=== PATIENT | female | born 1940 | race Caucasian/White ===

== ENCOUNTER 2017-04-04 12:24 | Outpatient (CLI) | payer MEDICARE ==
[2017-04-04 13:02] LABS: Anion Gap 12 mmol/L (10-20); BUN (Urea Nitrogen) 13 mg/dL (9.8-20.1); Calc. Creatinine Clearance 0 mL/min (70-130); Calcium 9.3 mg/dL (7.8-10.44); Carbon Dioxide 27 mmol/L (23-31); Chloride 100 mmol/L (98-107); Estimated GFR-MDRD 62
--- NOTE | 2017-04-04 16:30 | NM ---
RADIONUCLIDE RENOGRAM WITH WASHOUT 04/04/17 HISTORY: UPJ congenital obstruction. FINDINGS: Patient was given 40 mg of Lasix IV 15 minutes prior to the start of the exam. Normalized GFR is kaden culated at 66 mL/minute. Split function shows 51% uptake of the left kidney and 49% of the right kid pankaj. Half life emptying of the right kidney is 17 minutes. Left kidney was reported at less than 1 minute , although this is favored to be artifactual. IMPRESSION: Symmetric renal function without evidence of obstruction. POS: [facility]
== END 2017-04-04 12:25 | disposition home or self-care (01) ==
LOC: NM 12:24 → SJX 12:25
PROVIDERS: ATTEND Urology
DX: R31.29 Other microscopic hematuria (principal); Q62.11 Congenital occlusion of ureteropelvic junction
CPT/HCPCS: 78708; 80048; A4641; A9562

== ENCOUNTER 2017-06-13 11:54 | Emergency (ER) | payer MEDICARE ==
[2017-06-13 12:31] LABS: #Lymphocytes 0.9 thou/uL (1.20-3.40); #Monocytes 0.8 thou/uL (0.11-0.59); #Neutrophils 10.5 thou/uL (1.40-6.50); %Basophils 0.2 % (0.0-1.0); %Eosinophils 0.2 % (0.0-10.0); %Lymphocytes 7.4 % (21.0-51.0); %Monocytes 6.5 % (0.0-10.0); Hematocrit 33.2 % (36.0-47.0); Mean Platelet Volume 9.7 fL (7.4-10.4); Red Blood Cell (RBC) Count 4.17 mill/uL (4.20-5.40); White Blood Cell (WBC) Count 12.3 thou/uL (4.8-10.8)
[2017-06-13] MEDS ORDERED: Nitroglycerin 2% Ointment 1 INCH/1 GM Packet ONE (12:41)
[2017-06-13 12:55] LABS: ALT (SGPT) 17 U/L (8-55); AST (SGOT) 20 U/L (5-34); Alkaline Phosphatase 65 U/L (40-150); Anion Gap 13 mmol/L (10-20); BUN (Urea Nitrogen) 15 mg/dL (9.8-20.1); Bilirubin, Total 0.5 mg/dL (0.2-1.2); CK (CPK) 52 U/L (29-168); Calc. Creatinine Clearance 0 mL/min (70-130); Calcium 9.2 mg/dL (7.8-10.44); Carbon Dioxide 26 mmol/L (23-31); Chloride 99 mmol/L (98-107); Estimated GFR-MDRD 64; Globulin 3.9 g/dL (2.4-3.5); Protein, Total 7.6 g/dL (6.0-8.3)
[2017-06-13 12:58] LABS: Troponin I Less than 0.010 ng/mL (< 0.028)
[2017-06-13 13:02] LABS: PTT 25.4 SEC (22.9-36.1); Prothrombin Time 13.9 SEC (12.0-14.7)
--- NOTE | 2017-06-13 13:03 | CT ---
NONCONTRAST CT OF THE BRAIN: Indication: 76-year-old female with dizziness. Comparison: 07-07-16 FINDINGS: There is moderate chronic small vessel white matter ischemic change which appears similar. No definit e acute infarct, hemorrhage, or hydrocephalus is present. The mastoid air cells are clear. The parana jessi sinuses demonstrate a small amount of mucosal thickening within the sphenoid sinus which is stabl e. Scattered intracranial vascular calcifications are similar. IMPRESSION: Stable moderate chronic small vessel and ischemic change. No definite acute intracranial abnormality. POS: [facility]
[2017-06-13 13:26] LABS: Bilirubin Negative (Negative); Blood, Urine Negative (Negative); Glucose, Urine (Dipstick) Negative (Negative); Ketone, Urine Negative (Negative); Nitrite Negative (Negative); Protein, Urine (Dipstick) Negative (Neg-Trace); Urobilinogen 0.2 mg/dL (0.2-1.0)
[2017-06-13 13:29] LABS: Bacteria/HPF None Seen HPF (None Seen); Hyaline Casts/LPF 4-6 HYALINE CAST LPF (0-3 Hyaline); RBC/HPF 0-3 HPF (0-3); Squamous Epithelial 0-3 HPF (0-3)
--- NOTE | 2017-06-13 13:40 | RAD ---
THREE VIEWS RIGHT WRIST: Indication: Right wrist pain. Comparison: None. FINDINGS: There is widening of the scapholunate interval suspicious for scapholunate insufficiency. There is mo derate radioscaphoid osteoarthrosis. There is mild osteoarthrosis seen between the lunate and the tri quetrum. There is stable nonspecific subchondral cyst like abnormality seen within the carpal bones. There is advanced STT and first CMC osteoarthrosis. There is slight DISI malalignment of the lunate. There is mild DRUJ osteoarthritis. There is soft tissue swelling surrounding the right wrist. IMPRESSION: 1. Findings suspicious for scapholunate insufficiency and DISI malalignment of the lunate. 2. Advanced STT and first CMC osteoarthrosis. 3. Moderate radiocarpal osteoarthrosis. 4. Mild DRUJ osteoarthrosis. POS: [facility]
--- NOTE | 2017-06-13 13:42 | RAD ---
AP CHEST: Indication: Chest pain, dizziness. FINDINGS: There is stable cardiomegaly. Vascular calcifications of the aortic arch is similar. No airspace cons olidation, pleural effusion is evident. Surgical clips over the left neck and left axillary region st able. IMPRESSION: Stable examination. No definite acute change demonstrated. POS: [facility]
[2017-06-13] MEDS ORDERED: HYDROcodone/Acetaminophen 10/325 mg Tablet ONE (16:46)
== END 2017-06-13 19:59 ==
LOC: ERS 11:54
DX: S63.501A Unspecified sprain of right wrist, initial encounter (principal); R54 Age-related physical debility; I48.91 Unspecified atrial fibrillation; E78.5 Hyperlipidemia, unspecified; I10 Essential (primary) hypertension; F41.9 Anxiety disorder, unspecified; Z87.891 Personal history of nicotine dependence; X58.XXXA Exposure to other specified factors, initial encounter
CPT/HCPCS: 29125; 36415; 70450; 71010; 80053; 81003; 81015; 82550; 82553; 84484; 85025; 85610; 85652; 85730; 86140; 87086; 93005; 94760

== ENCOUNTER 2017-07-31 08:32 | Outpatient (CLI) | payer MEDICARE | END 2017-07-31 08:33 | disposition home or self-care (01) | LOC: BICMRI 08:32 | PROVIDERS: ATTEND Psychiatry & Neurology Neurology | DX: R26.9 Unspecified abnormalities of gait and mobility (principal) | CPT/HCPCS: 70551 ==

== ENCOUNTER 2017-08-24 10:53 | Day surgery (SDC) | payer MEDICARE ==
[2017-08-23 10:47] VITALS: BMI 35.5
[2017-08-24] MEDS ORDERED: HYDROmorphone 0.5 MG/0.5 ML SYRINGE ONE (11:28)
[2017-08-24] MEDS ORDERED: Midazolam HCl 2 mg/2 ml Vial ONE (11:28)
--- NOTE | 2017-08-24 15:02 | MRI ---
MRI OF BRAIN WITH AND WITHOUT CONTRAST: Date: 08/24/17 COMPARISON: Head CT dated 06/13/17. CLINICAL HISTORY: Gait abnormality (unspecified abnormalities). History of dizziness. FINDINGS: Prominent ventricular system is again demonstrated with periventricular signal alteration. Punctate s usceptibility is seen within the right centrum semiovale. There is no acute territorial infarction, m ass effect, or midline shift. Skull base flow-voids are grossly patent. [place] intraocular lenses are absent. There is mild mucosal thickening of the paranasal sinuses. There is a tangle of enhancing va sculature adjacent to the right M1 segment. This suggests a developmental venous anomaly. There is no pathologic intra-axial enhancement identified. IMPRESSION: 1. Prominent ventricular system with periventricular signal alteration. This could be on the basis o f transependymal CSF migration. Note is made that size of ventricles does not correspond to degree of intracranial pressure. Correlate clinically. 2. Additional details described above. POS: [facility]
== END 2017-08-24 15:40 | disposition home or self-care (01) ==
LOC: SDC/OP 10:53
PROVIDERS: ATTEND Psychiatry & Neurology Neurology
DX: R26.9 Unspecified abnormalities of gait and mobility (principal); I12.9 Hypertensive chronic kidney disease with stage 1 through stage 4 chronic kidney disease, or unspecified chronic kidney disease; N18.2 Chronic kidney disease, stage 2 (mild); E78.5 Hyperlipidemia, unspecified; I73.9 Peripheral vascular disease, unspecified; I48.0 Paroxysmal atrial fibrillation
CPT/HCPCS: 70553; J1170; J2250

== ENCOUNTER 2017-09-08 12:15 | Emergency (ER) | payer MEDICARE ==
[2017-09-08 13:15] LABS: #Eosinphils 0.3 thou/uL (0.0-0.7); #Lymphocytes 1.6 thou/uL (1.20-3.40); #Monocytes 0.5 thou/uL (0.11-0.59); #Neutrophils 3.7 thou/uL (1.40-6.50); %Basophils 0.3 % (0.0-1.0); %Eosinophils 4.2 % (0.0-10.0); %Lymphocytes 25.8 % (21.0-51.0); %Monocytes 8.5 % (0.0-10.0); %Neutrophils 61.2 % (42.0-75.0); Hemoglobin 8.5 g/dL (12.0-16.0); Mean Corpuscular HGB CONC 29.9 g/dL (32.0-36.0); Mean Corpuscular Hemoglobin 21.7 pg (27.0-31.0); Mean Corpuscular Volume 72.7 fl (81.0-99.0); Platelet Count 329 thou/uL (130-400)
[2017-09-08 13:22] LABS: INR-International Normal Ratio 1.1; PTT 23.9 SEC (22.9-36.1); Prothrombin Time 14.5 SEC (12.0-14.7)
[2017-09-08 13:33] LABS: ALT (SGPT) 12 U/L (8-55); AST (SGOT) 16 U/L (5-34); Albumin 3.4 g/dL (3.4-4.8); Alkaline Phosphatase 68 U/L (40-150); Anion Gap 13 mmol/L (10-20); Anisocytosis SLIGHT = 6-15 cells (100X) (0-5/hpf); BUN (Urea Nitrogen) 11 mg/dL (9.8-20.1); Bilirubin, Total 0.2 mg/dL (0.2-1.2); CK (CPK) 44 U/L (29-168); Calc. Creatinine Clearance 0 mL/min (70-130); Calcium 8.7 mg/dL (7.8-10.44); Carbon Dioxide 26 mmol/L (23-31); Chloride 104 mmol/L (98-107); Elliptocytes SLIGHT = 2-5 cells (100X) (0-1/hpf); Estimated GFR-MDRD 57; Globulin 3.4 g/dL (2.4-3.5); Glucose 144 mg/dL (83-110); Hypochromia SLIGHT = 6-15 cells (100X) (0-5/hpf); Lipase 40 U/L (8-78); MDiff Complete? YES; Microcytosis SLIGHT = 6-15 cells (100X) (0-5/hpf); Ovalocytes SLIGHT = 2-5 cells (100X) (0-1/hpf); PLT Morphology Comment Appears Adequate; Polychromasia SLIGHT = 2-3 cells (100X) (0-2/hpf); Potassium 3.5 mmol/L (3.5-5.1); Protein, Total 6.8 g/dL (6.0-8.3); Sodium 139 mmol/L (136-145)
[2017-09-08 13:36] LABS: Troponin I Less than 0.010 ng/mL (< 0.028)
[2017-09-08 14:29] LABS: Bilirubin Negative (Negative); Blood, Urine Negative (Negative); Clarity CLEAR (Clear); Glucose, Urine (Dipstick) Negative (Negative); Leukocyte Negative (Negative); Nitrite Negative (Negative); Protein, Urine (Dipstick) Negative (Neg-Trace); Specific Gravity, Urine 1.012 (1.002-1.036)
--- NOTE | 2017-09-08 15:09 | RAD ---
PORTABLE CHEST: Date: 09/08/17 PROVIDED CLINICAL HISTORY: Dizziness. FINDINGS: Comparison with 06/13/17. Cardiac silhouette appears enlarged, which may be based partially on the basis of portable technique. Vascular calcification involves the aortic arch. Stable likely calcified granuloma right lung apex. No focal consolidation, pleural fluid, or pneumothorax apparent with suboptimal visualization of left lung base. IMPRESSION: Cardiomegaly without evidence for an acute cardiopulmonary process. If there is persistent clinical c oncern, follow-up PA and lateral views of the chest are recommended. POS: [facility]
--- NOTE | 2017-09-15 13:12 | EKG ---
Test Reason : DIZZINESS Blood Pressure : / mmHG Vent. Rate : 081 BPM Atrial Rate : 081 BPM P-R Int : 182 ms QRS Dur : 082 ms QT Int : 404 ms P-R-T Axes : 061 050 026 degrees QTc Int : 469 ms Normal sinus rhythm Nonspecific T wave abnormality Abnormal ECG Confirmed by JOCELIN SIN ([id number]), international editorial producer JOSUÉ CHAU ([id number]) on 09/15/2017 1:11:53 PM Referred By: Confirmed By:JOCELIN SIN
== END 2017-09-08 14:37 | disposition home or self-care (01) ==
LOC: ERS 12:15
DX: D64.9 Anemia, unspecified (principal); I48.91 Unspecified atrial fibrillation; E78.5 Hyperlipidemia, unspecified; I10 Essential (primary) hypertension; F41.9 Anxiety disorder, unspecified; Z87.891 Personal history of nicotine dependence; Z79.899 Other long term (current) drug therapy
CPT/HCPCS: 36415; 71045; 80053; 81003; 82553; 83690; 84443; 84484; 85025; 85610; 85730; 93005; 94760

== ENCOUNTER 2017-10-03 10:11 | Outpatient (CLI) | payer MEDICARE ==
[2017-10-03] MEDS ORDERED: Iopamidol 370 76% 100 ML VIAL ONE (14:57)
--- NOTE | 2017-10-03 15:52 | CT ---
CT ANGIOGRAM ABDOMEN AND PELVIS WITH IV CONTRAST AND 3D RECONSTRUCTIONS CT ANGIOGRAM BILATERAL LOWER EXTREMITIES WITH RUNOFF TO THE FEET WITH IV CONTRAST AND 3D RECONSTRUCTI ONS: DATE: 10/03/17. COMPARISON: CT angiogram abdomen and pelvis with bilateral lower extremity runoff on 07/28/[address] abdome n and pelvis on 01/09/17. FINDINGS: There are stable bilateral adrenal nodules as well as stable subcentimeter too small to characterize hypodense lesions in each kidney. The largest hypodense lesion in the superior pole left kidney kerwin ures 1.9 cm and demonstrates an fluid attenuation consistent with a cyst. The largest hypodense lesi on in the inferior pole right kidney measures 2.5 cm and also demonstrates fluid attenuation consiste nt with a cyst. There is linear scarring versus atelectasis at the left lung base. Lung bases are otherwise clear. Calcified granulomata are seen in the spleen. The liver, pancreas, and incompletely distended urinary bladder have a normal CT appearance. There i s evidence of prior hysterectomy. Colonic diverticulosis is again present. Postsurgical changes lumbar spine are again seen. Multilevel degenerative changes of the left arm al so involve the lumbar spine. Atherosclerotic vascular calcifications are again seen in the abdominal aorta and iliac arteries. Bi lateral common iliac artery stents are again seen. There is occlusion of the left common iliac arter y stent with dense calcifications in the left external iliac artery which also appears occluded and v brandan small in caliber. The right common iliac artery stent, which extends into the external iliac art brandan, does appear patent. There is moderate narrowing involving the mid portion of the right external iliac artery is otherwise patent. The right common femoral artery is patent. There is reconstitution of the left common femoral artery. The origins of the internal iliac arterie s are not well visualized. However, there is contrast seen within the internal iliac arteries bilate rally. Bilateral lower extremity runoff to the feet. RIGHT LOWER EXTREMITY: The right lower extremity common femoral, superficial femoral, and profunda femoral arteries are shaw nt with mild atherosclerotic calcifications and narrowing involving the distal right common femoral a rtery. The right popliteal artery is patent. There are atherosclerotic calcifications involving the proximal right anterior tibial artery, but there is 3-vesel runoff to the level of the ankle, but th e dorsalis pedis artery is not well opacified and I am unsure if this is related to occlusion at the level of the ankle or whether this is related to timing of the contrast bolus. However, the posterio r tibial artery is seen at the level of the foot. LEFT LOWER EXTREMITY: There is calcified atherosclerotic plaque seen in the left common femoral and superficial femoral art eries with mild degrees of narrowing present. The left profunda femoral artery does appear patent. The left popliteal artery is also patent. There is 3-vessel runoff to the level of the distal calf, but contrast distal to the level of the ankle within the tibioperoneal vessels is not well seen and, again, this may be related to timing of the contrast bolus, but atherosclerotic narrowing is not enti rely excluded. IMPRESSION: 1. The right common iliac and external iliac artery stents are patent, but there is a focal area of mild to moderate narrowing involving the right external iliac artery distally. 2. Occlusion of the left common iliac artery stent and the left external iliac artery is very small in caliber with dense vascular calcifications and is also occluded. There is reconstitution in the l eft common femoral artery. 3. There is 3-vessel runoff to the lower extremities to the level of the distal tibias bilaterally. The posterior tibial artery on the right is seen in the foot, but the remaining tibioperoneal vessel s bilaterally are not well seen in the foot, which could be related to timing of the contrast bolus. 4. Stable bilateral adrenal lesions. 5. Stable hypodense bilateral renal lesions with larger hypodense lesions demonstrating characterist ics consistent with cysts. 6. Colonic diverticulosis. 7. Hysterectomy. POS: [facility]
== END 2017-10-03 10:12 | disposition home or self-care (01) ==
LOC: CT 10:11
PROVIDERS: ATTEND Internal Medicine Cardiovascular Disease
DX: I73.9 Peripheral vascular disease, unspecified (principal); I70.201 Unspecified atherosclerosis of native arteries of extremities, right leg; I70.202 Unspecified atherosclerosis of native arteries of extremities, left leg; E27.9 Disorder of adrenal gland, unspecified; N28.9 Disorder of kidney and ureter, unspecified; K57.30 Diverticulosis of large intestine without perforation or abscess without bleeding; Z90.710 Acquired absence of both cervix and uterus
CPT/HCPCS: 75635; 82565

== ENCOUNTER 2017-11-06 18:15 | Inpatient (IN) | payer MEDICARE ==
[2017-11-06 19:10] LABS: #Eosinphils 0.1 thou/uL (0.0-0.7); #Lymphocytes 1.4 thou/uL (1.20-3.40); #Monocytes 0.7 thou/uL (0.11-0.59); #Neutrophils 4.9 thou/uL (1.40-6.50); %Basophils 0.4 % (0.0-1.0); %Eosinophils 1.6 % (0.0-10.0); %Lymphocytes 19.7 % (21.0-51.0); %Monocytes 9.4 % (0.0-10.0); Hemoglobin 5.6 g/dL (12.0-16.0); Mean Corpuscular HGB CONC 29.1 g/dL (32.0-36.0); Mean Corpuscular Hemoglobin 19.1 pg (27.0-31.0); Mean Corpuscular Volume 65.7 fl (81.0-99.0); Mean Platelet Volume 9.4 fL (7.4-10.4); Platelet Count 419 thou/uL (130-400); RBC Distribution Width 19.3 % (11.5-14.5); Red Blood Cell (RBC) Count 2.93 mill/uL (4.20-5.40)
[2017-11-06 19:17] LABS: ALT (SGPT) 13 U/L (8-55); AST (SGOT) 22 U/L (5-34); Albumin 3.6 g/dL (3.4-4.8); Alkaline Phosphatase 61 U/L (40-150); Anion Gap 17 mmol/L (10-20); BUN (Urea Nitrogen) 14 mg/dL (9.8-20.1); Bilirubin, Total 0.3 mg/dL (0.2-1.2); Calc. Creatinine Clearance 0 mL/min (70-130); Calcium 8.8 mg/dL (7.8-10.44); Carbon Dioxide 21 mmol/L (23-31); Chloride 102 mmol/L (98-107); Estimated GFR-MDRD 57; Globulin 3.2 g/dL (2.4-3.5); Glucose 95 mg/dL (83-110); Potassium 4.1 mmol/L (3.5-5.1); Protein, Total 6.8 g/dL (6.0-8.3); Sodium 136 mmol/L (136-145)
[2017-11-06 19:30] LABS: Anisocytosis MODERATE=16-30 cells (100X) (0-5/hpf); Elliptocytes SLIGHT = 2-5 cells (100X) (0-1/hpf); Hypochromia MODERATE=16-30 cells (100X) (0-5/hpf); MDiff Complete? YES; Microcytosis SLIGHT = 6-15 cells (100X) (0-5/hpf); Ovalocytes SLIGHT = 2-5 cells (100X) (0-1/hpf); PLT Morphology Comment Appears Increased; Polychromasia MODERATE = 3-4 cells (100X) (0-2/hpf); Reflex for Review?? YES; Target Cells SLIGHT = 2-5 cells (100X) (0-1/hpf)
--- NOTE | 2017-11-06 19:48 | RAD ---
PORTABLE CHEST: 11/06/17 HISTORY: Shortness of breath. COMPARISON: 09/08/17 Study. The heart size appears slightly enlarged. There are atherosclerotic changes of the aorta. There are c hronic appearing lung changes seen. Slight obscuration to the left heart border is similar to the pratibha or examination. Surgical clips are seen in the left axilla. IMPRESSION: Stable chest. POS: [facility]
[2017-11-06 20:11] LABS: CKMB 0.8 ng/mL (0-6.6); Troponin I Less than 0.010 ng/mL (< 0.028)
[2017-11-06 21:00] LABS: Bilirubin Negative (Negative); Blood, Urine Negative (Negative); Clarity CLEAR (Clear); Glucose, Urine (Dipstick) Negative (Negative); Leukocyte Negative (Negative); Nitrite Negative (Negative); Protein, Urine (Dipstick) Negative (Neg-Trace); Specific Gravity, Urine 1.006 (1.002-1.036); Urobilinogen 0.2 mg/dL (0.2-1.0)
[2017-11-06 21:08] VITALS: BMI 35.6
[2017-11-06] MEDS ORDERED: Ondansetron HCl/PF 4 MG/2 ML Vial IVP PRN (21:27)
[2017-11-06] MEDS ORDERED: Acetaminophen 325 MG TAB PO PRN (21:27)
[2017-11-06] MEDS ORDERED: Ondansetron ODT 4 MG TAB SL PRN (21:27)
[2017-11-06 23:53] LABS: Iron 21 ug/dL (50-170); Iron Binding Capacity, Total 543 mcg/dL (265-497); Reticulocyte Count 3.9 % (0.5-1.5)
[2017-11-07 06:14] LABS: Reticulocyte Count 3.5 % (0.5-1.5)
[2017-11-07] MEDS ORDERED: Nitroglycerin 0.4 MG TAB (25 Tab Bottle) PO PRN (06:30)
[2017-11-07] MEDS ORDERED: Acetaminophen 325 MG TAB PO PRN (06:30)
[2017-11-07] MEDS ORDERED: Calcium Carbonate 500 MG ChewTAB PO PRN (06:30)
[2017-11-07] MEDS ORDERED: Mag-Al 1200 mg/1200 mg/30 ML UDCUP PO PRN (06:30)
[2017-11-07] MEDS ORDERED: Milk Of Magnesia 30 ML UDCUP PO PRN (06:30)
[2017-11-07] MEDS ORDERED: Senokot 8.6 MG TAB PO PRN (06:30)
--- NOTE | 2017-11-07 06:57 | HP ---
DATE OF ADMISSION: 11/06/2017 The patient was seen and examined on 11/06/2017. PRIMARY CARE PHYSICIAN: Dr. Linares. PRIMARY RN URGENT CARE: Gopi Dominguez M.D. CHIEF COMPLAINT: Generalized weakness, lightheadedness, and dizziness with shortness of breath on ex ertion over the past few days. HISTORY OF PRESENT ILLNESS: The patient is a 77-year-old female with paroxysmal atrial fibrillation, currently on Plavix, hypertension and hyperlipidemia presented to the hospital with above complaints . Over the past few days, patient has generalized weakness along with lightheadedness, dizziness with s hortness of breath on mild to moderate exertion. She had some dark stool intermittently. She denies any hematemesis, abdominal pain and weight loss. She had colonoscopy many years ago. PAST MEDICAL HISTORY: 1. Paroxysmal atrial fibrillation, currently on Plavix. 2. Hypertension. 3. Hyperlipidemia. 4. Degenerative joint disease. 5. Anxiety and depression. 6. Chronic kidney disease stage 3. 7. Peripheral vascular disease. 8. Obstructive sleep apnea. 9. Breast cancer status post lumpectomy. PAST SURGICAL HISTORY: 1. Lumpectomy. 2. Colonoscopy. 3. Hysterectomy. 4. Cardiac ablation. 5. Peripheral vascular stent placement. The patient is unable to provide further details. ALLERGIES: No known drug allergies. CURRENT HOME MEDICATIONS: The patient is unable to remember all of her home medications, family to g et accurate list of medications. SOCIAL HISTORY: The patient is a former smoker. Currently lives with her daughter. No alcohol or d rug use. She is FULL CODE and makes her own decision with the help of her daughter. FAMILY HISTORY: Negative for GI malignancies. Diabetes and hypertension runs in her family. REVIEW OF SYSTEMS: The following complete review of systems was negative, unless otherwise mentioned in the HPI or below: Constitutional: Weight loss or gain, ability to conduct usual activities. Sk in: Rash, itching. Eyes: Double vision, pain. ENT/Mouth: Nose bleeding, neck stiffness, pain, ten derness. Cardiovascular: Palpitations, dyspnea on exertion, orthopnea. Respiratory: Shortness of breath, wheezing, cough, hemoptysis, fever or night sweats. Gastrointestinal: Poor appetite, abdomi nal pain, heartburn, nausea, vomiting, constipation, or diarrhea. Genitourinary: Urgency, frequency , dysuria, nocturia. Musculoskeletal: Pain, swelling. Neurologic/Psychiatric: Anxiety, depression . Allergy/Immunologic: Skin rash, bleeding tendency. PHYSICAL EXAMINATION: VITAL SIGNS: In the emergency room showed temperature 98.7, respirations 20, pulse rate of 102, bloo d pressure 124/38 with O2 saturation 98% on room air. GENERAL: A 77-year-old female in no apparent distress. HEENT: Head atraumatic, normocephalic. Sclerae are anicteric. Conjunctival pallor. No oral lesion . NECK: Supple, no JVD, no carotid bruit. LUNGS: Clear to auscultation bilaterally, no wheezing, rales or rhonchi. HEART: S1, S2 present. Regular rate and rhythm. No murmur, rubs, or gallops appreciated. ABDOMEN: Soft, nontender, bowel sounds present, no rebound, guarding, no costovertebral angle tender ness. EXTREMITIES: No edema or calf tenderness. NEUROLOGIC: Grossly nonfocal, moves all four extremities. PSYCHIATRY: Alert, awake, oriented x3. SKIN: Warm and dry. LYMPH NODES: No palpable lymph nodes in the neck. PERIPHERAL VASCULAR: Radial pulses palpable bilaterally. MUSCULOSKELETAL: No joint swelling or tenderness. LABORATORY FINDINGS: CBC showed WBC 7 with hemoglobin 5.6, hematocrit 19.3, MCV 65.7, MCH of 19, storm telet count of 419. Iron was 21, TIBC 543. Ferritin 12.2. Creatinine was 0.96. Troponins negative . EKG by my review showed sinus rhythm. IMPRESSION: 1. Symptomatic anemia. The patient is currently receiving 2 units of PRBC, which were ordered in th e emergency room. We will recheck H and H in the a.m. The patient will be kept n.p.o. Gastroentero logy will be consulted. Plavix will be held. Per patient request, Cardiology will be consulted as renzo lopez. 2. Hypochromic microcytic anemia, probably secondary to iron deficiency from suspected chronic gastr ointestinal blood loss. 3. Paroxysmal atrial fibrillation. We will confirm her home medications and start accordingly. Storm vix will be held. Per patient request, Cardiology will be consulted. 4. Chronic pain syndrome. We will continue home pain regimen once confirmed. 5. Anxiety and depression. We will resume home medications once confirmed. 6. Peripheral vascular disease. Plavix will be held. 7. Hyperlipidemia. Plan of care was discussed with the patient in detail, she stated understanding.
[2017-11-07 08:11] LABS: Hemoglobin 7.6 g/dL (12.0-16.0)
[2017-11-07] MEDS: Flecainide 50 MG TAB PO SCH ×2 (09:49→21:13)
--- NOTE | 2017-11-07 13:33 | PDOC.PN ---
- Subjective Encounter Start Date: 11/07/17 Encounter Start Time: 11:10 -: old records requested/rev PT seen and examined, chart reviewed in its entirety, this si my first visit with this patient Follow up for UGIB and acute blood loss anemia, symptomatic Pt with several months of dark formed stool, recently with dizziness with standing. Hgb on arrival 5.6. admitted, transfused 2 units PRBCs and hgb 7.6. pending GI eval, NPO. complaints of BRIGGS from lack of caffeine, no F/C, no N/V/D/ c. denies hematochezia, abd pain, hematemesis, melena. Pt with hypochromic, microcytic anemia, iron deficiency All systems reviewed and neg except as above - Objective Resuscitation Status: Resuscitation Status FULL:Full Resuscitation MAR Reviewed: Yes Vital Signs & Weight: Vital Signs (12 hours) Temp Pulse Resp BP Pulse Ox 11/07/17 06:36 95 11/07/17 06:14 98.6 F 91 18 138/61 94 L 11/07/17 04:00 98.7 F 99 20 149/65 H 96 I&O: 11/06/17 11/07/17 11/08/17 06:59 06:59 06:59 Intake Total 1350 Output Total 1500 Balance -150 Result Diagrams: 11/07/17 08:00 11/06/17 18:40 Radiology Reviewed by me: Yes EKG Reviewed by me: Yes Phys Exam - Physical Examination Constitutional: NAD pale HEENT: PERRLA, moist MMs, sclera anicteric, oral pharynx no lesions Neck: no nodes, no JVD, supple, full ROM Respiratory: no wheezing, no rales, no rhonchi, clear to auscultation bilateral Cardiovascular: RRR, no significant murmur, no rub Gastrointestinal: soft, non-tender, no distention, positive bowel sounds Musculoskeletal: no edema, edema present Neurological: non-focal, normal sensation, moves all 4 limbs Lymphatic: no nodes Psychiatric: normal affect, A&O x 3 Skin: no rash, normal turgor, cap refill <2 seconds Dx/Plan (1) UGIB (upper gastrointestinal bleed) Code(s): K92.2 - GASTROINTESTINAL HEMORRHAGE, UNSPECIFIED Status: Acute Comment: suspect upper source, NPO, await GI eval, suspect she will need EGD. Protonix IV q 12, no signs of active bleed at present (2) Acute blood loss anemia Code(s): D62 - ACUTE POSTHEMORRHAGIC ANEMIA Status: Acute (3) Iron deficiency anemia due to chronic blood loss Code(s): D50.0 - IRON DEFICIENCY ANEMIA SECONDARY TO BLOOD LOSS (CHRONIC) Status: Chronic (4) Symptomatic anemia Code(s): D64.9 - ANEMIA, UNSPECIFIED Status: Acute (5) Caffeine dependence, continuous Code(s): F15.20 - OTHER STIMULANT DEPENDENCE, UNCOMPLICATED Status: Chronic (6) Paroxysmal A-fib Code(s): I48.0 - PAROXYSMAL ATRIAL FIBRILLATION Status: Chronic (7) PVD (peripheral vascular disease) Code(s): I73.9 - PERIPHERAL VASCULAR DISEASE, UNSPECIFIED Status: Chronic (8) 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 transplanted heart: [place] heart Associated angina: without angina Qualified Code(s): I25.10 - Atherosclerotic heart disease of [place] coronary artery without angina pectoris - Plan cont current plan of care, plan discussed w/ family * .
--- NOTE | 2017-11-07 14:39 | CON ---
DATE OF CONSULTATION: 11/07/2017 REASON FOR CONSULTATION: Anemia. HISTORY: Mrs. Draper is a 77-year-old female who was admitted from the ER. Her family brought to her the ER with a month history of progressive weakness, lightheadedness and progressive shortness of breath with exertion. She has not noted any blood in her stool or melenic stools. She denies having any GI symptoms such as nausea, vomiting or abdominal pain. On admission, she was noted to have a profound anemia with a hemoglobin of 5.6 and MCV of 65.7. Since admission, she has received 2 units of RBC transfusion. The patient has a history of atrial fibrillation, previously on Eliquis for 2 months. However, she has been on Plavix presumably for her peripheral vascular disease as she has peripheral stents in her legs. She has been on Plavix for the last 2 months. She had EGD and colonoscopy by Dr. 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 Apparently, she had done well over the years until this episode. PAST MEDICAL HISTORY: 1. History of atrial fibrillation, status post previous cardioversion. 2. Hypertension. 3. Hyperlipidemia. 4. Chronic kidney disease. 5. Peripheral vascular disease with peripheral stent. 6. Obstructive sleep apnea. 7. History of breast cancer status post lumpectomy. 8. 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 9. Status post hysterectomy. ALLERGIES: None. MEDICATIONS: Include flecainide 50 mg b.i.d., vitamin D 1000 units daily, diltiazem 120 mg every day, Xanax 1 mg b.i.d. p.r.n., Plavix 75 mg every day and hydrocodone/acetaminophen b.i.d. as needed. SOCIAL HISTORY: The patient lives by herself. She previously smoked, currently on e-cigarette. Denies alcohol usage. FAMILY HISTORY: Negative for any known GI problem, liver disease or GI malignancy. ROS: All 10 point review system otherwise negative. PHYSICAL EXAMINATION: VITAL SIGNS: Temperature is 98.6, blood pressure 138/61, pulse of 91. GENERAL: She is alert, conversant, does not appear in any distress. HEENT: Shows anicteric sclerae. NECK: Supple. Oropharynx clear. CARDIOVASCULAR: Shows normal S1, S2, regular rate and rhythm, no murmur. CHEST: Shows breath sounds. Clear to auscultation. ABDOMEN: Protuberant, but soft, nontender. No palpable mass or organomegaly. She has active bowel sounds. EXTREMITIES: Does not show any peripheral edema. LABORATORY DATA: WBC 7.0, hemoglobin 5.6 on admission, now 7.6 after 2 units of RBC, MCV is 65.7, platelet count of 419,000. Electrolytes within normal range. Creatinine 0.96, BUN of 14. Serum iron 21, TIBC 543, ferritin of 12. ASSESSMENT: 1. Profound microcytic anemia with iron indices very consistent with iron deficiency. Her stools are positive for occult blood. This is most likely from gastrointestinal blood loss. 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 It is very likely that the patient has recurrent bleeding on Plavix therapy in the last 2 months resulting in this profound iron deficiency anemia. However, at her age, we will need to exclude other potential source of enteric bleeding or colonic bleeding. 2. Peripheral vascular disease, history of atrial fibrillation, hyperlipidemia. 3. History of breast cancer status post lumpectomy. RECOMMENDATIONS: 1. We will proceed with EGD and colonoscopy tomorrow with bowel prep today to evaluate for any source of GI blood loss. 2. Indication including risks were explained to patient. All questions answered. 3. Further recommendation to follow pending endoscopic finding. [facility]
[2017-11-07 14:40] LABS: Hemoglobin 7.8 g/dL (12.0-16.0)
[2017-11-07] MEDS ORDERED: GoLYTELY 4,000 ml Bottle PO SCH (16:00)
--- NOTE | 2017-11-07 23:23 | CON ---
DATE OF CONSULT: HISTORY OF PRESENT ILLNESS: The patient is a 77-year-old woman who presented with dyspnea and was no channing to have a GI hemorrhage. The patient has a long history of peripheral vascular disease. She als o has a history of cerebral vascular disease. The patient also had a history of atrial flutter. She had been on Eliquis. She was treated with flecainide. She was taken off Eliquis due to a history of multiple falls. The patient presented with weakness. She denied having any chest discomfort or pal pitations. PAST MEDICAL HISTORY: Significant for 1. GI hemorrhage. 2. Peripheral vascular disease. 3. Hypertension. 4. Cerebrovascular disease. 5. Chronic obstructive pulmonary disease. 6. Breast carcinoma. PAST SURGICAL HISTORY: She has had a hysterectomy, lumpectomy. Peripheral stent placed. SOCIAL HISTORY: Former smoker. MEDICATIONS: See nursing list. REVIEW OF SYSTEMS: Noticeable for weakness, dizziness, lightheadedness PHYSICAL EXAMINATION: GENERAL: Obese woman in no acute distress. VITAL SIGNS: Blood pressure was 138/61. NECK: Showed no jugular distention. LUNGS: Clear to auscultation. HEART: Irregular rate and rhythm, normal S1, S2. ABDOMEN: Distended. EXTREMITIES: Showed trace edema. LABORATORY DATA: White blood count 7.0, hemoglobin 5.6, hematocrit was 19.3. Platelets were 419. Her sodium was 136, potassium 4.1, chloride 102, bicarbonate 21, BUN 14, creatin ine is 1.96. Troponin less than 0.96. Her EKG revealed her to have normal sinus rhythm, nonspecific ST-T wave abnormality. IMPRESSION: 1. Gastrointestinal hemorrhage. 2. History of hypertension. 3. Peripheral vascular disease. 4. Cerebrovascular disease. The patient had a GI hemorrhage. From a cardiac standpoint, Plavix has been held. I would restart t his medication as soon as it is felt possible. She is undergoing GI evaluation today. I will follow this patient with you through her hospitalization.
[2017-11-08 05:15] LABS: Anion Gap 9 mmol/L (10-20); BUN (Urea Nitrogen) 4 mg/dL (9.8-20.1); Calc. Creatinine Clearance 110 mL/min (70-130); Calcium 8.3 mg/dL (7.8-10.44); Carbon Dioxide 25 mmol/L (23-31); Chloride 103 mmol/L (98-107); Estimated GFR-MDRD 83; Glucose 111 mg/dL (83-110); Magnesium 1.6 mg/dL (1.6-2.6); Potassium 3.4 mmol/L (3.5-5.1); Sodium 134 mmol/L (136-145)
[2017-11-08 05:44] LABS: #Eosinphils 0.1 thou/uL (0.0-0.7); #Lymphocytes 1.5 thou/uL (1.20-3.40); #Monocytes 0.8 thou/uL (0.11-0.59); #Neutrophils 6.6 thou/uL (1.40-6.50); %Basophils 0.3 % (0.0-1.0); %Eosinophils 1.6 % (0.0-10.0); %Lymphocytes 16.2 % (21.0-51.0); %Monocytes 8.7 % (0.0-10.0); %Neutrophils 73.2 % (42.0-75.0); Anisocytosis MODERATE=16-30 cells (100X) (0-5/hpf); Elliptocytes SLIGHT = 2-5 cells (100X) (0-1/hpf); Hemoglobin 7.6 g/dL (12.0-16.0); MDiff Complete? YES; Mean Corpuscular HGB CONC 29.4 g/dL (32.0-36.0); Mean Corpuscular Hemoglobin 21.9 pg (27.0-31.0); Mean Corpuscular Volume 74.5 fl (81.0-99.0); Mean Platelet Volume 9.2 fL (7.4-10.4); Platelet Count 369 thou/uL (130-400); RBC Distribution Width 23.1 % (11.5-14.5); Red Blood Cell (RBC) Count 3.45 mill/uL (4.20-5.40)
[2017-11-08] MEDS: Flecainide 50 MG TAB PO SCH ×2 (08:12→21:11)
--- NOTE | 2017-11-08 10:39 | PDOC.PN ---
- Subjective Encounter Start Date: 11/08/17 Encounter Start Time: 09:00 Pt prepped for upper and lower endoscopy, feels bad because she hasn't eating in 2 days. some nausea, no vomiting, no BRIGGS at present. Told shes going after lunch. no bleeding, no F/C, no acute overnight events All systems reviewed and neg except as above - Objective Resuscitation Status: Resuscitation Status FULL:Full Resuscitation MAR Reviewed: Yes Vital Signs & Weight: Vital Signs (12 hours) Temp Pulse Resp BP Pulse Ox 11/08/17 08:06 98.2 F 98 18 174/75 H 96 11/08/17 07:33 95 11/08/17 03:49 97.9 F 95 18 167/72 H 95 11/08/17 00:00 98.2 F 98 20 198/79 H 98 I&O: 11/07/17 11/08/17 11/09/17 06:59 06:59 06:59 Intake Total 1350 4000 Output Total 1500 5000 Balance -150 -1000 Result Diagrams: 11/08/17 04:01 11/08/17 04:01 Phys Exam - Physical Examination Constitutional: NAD HEENT: PERRLA, moist MMs, sclera anicteric, oral pharynx no lesions Neck: no nodes, no JVD, supple, full ROM Respiratory: no wheezing, no rales, no rhonchi, clear to auscultation bilateral Cardiovascular: RRR, no significant murmur, no rub Gastrointestinal: soft, non-tender, no distention, positive bowel sounds Musculoskeletal: no edema, pulses present Neurological: non-focal, normal sensation, moves all 4 limbs Lymphatic: no nodes Psychiatric: normal affect, A&O x 3 Skin: no rash, normal turgor, cap refill <2 seconds Dx/Plan (1) UGIB (upper gastrointestinal bleed) Code(s): K92.2 - GASTROINTESTINAL HEMORRHAGE, UNSPECIFIED Status: Acute Comment: suspect upper source, history of cecal and duodenal AVMs. Protonix IV q 12, no signs of active bleed at present. EGD and colonoscopy today. h/H stable (2) Acute blood loss anemia Code(s): D62 - ACUTE POSTHEMORRHAGIC ANEMIA Status: Acute Comment: stable at 7.6 (3) Iron deficiency anemia due to chronic blood loss Code(s): D50.0 - IRON DEFICIENCY ANEMIA SECONDARY TO BLOOD LOSS (CHRONIC) Status: Chronic Comment: replace when taking po (4) Symptomatic anemia Code(s): D64.9 - ANEMIA, UNSPECIFIED Status: Acute (5) Caffeine dependence, continuous Code(s): F15.20 - OTHER STIMULANT DEPENDENCE, UNCOMPLICATED Status: Chronic (6) Paroxysmal A-fib Code(s): I48.0 - PAROXYSMAL ATRIAL FIBRILLATION Status: Chronic (7) PVD (peripheral vascular disease) Code(s): I73.9 - PERIPHERAL VASCULAR DISEASE, UNSPECIFIED Status: Chronic (8) 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 transplanted heart: [place] heart Associated angina: without angina Qualified Code(s): I25.10 - Atherosclerotic heart disease of [place] coronary artery without angina pectoris - Plan cont current plan of care, plan discussed w/ family, out of bed/ambulate * .
[2017-11-08] MEDS ORDERED: PROPOFOL 200 MG/20 ML VIAL ONE (14:28)
[2017-11-08] MEDS ORDERED: Lidocaine 1% PF 5 ML VIAL ONE (14:28)
--- NOTE | 2017-11-08 15:22 | OP ---
DATE OF PROCEDURE: 11/08/2017 PROCEDURE: Esophagogastroduodenoscopy with control of hemorrhage and colonoscopy. PREOPERATIVE DIAGNOSIS: Iron deficiency anemia. OPERATIVE NOTE: Informed consent was obtained from the patient. She was sedated with total intraven ous anesthesia. The bite block was placed and the endoscope was advanced easily to the third portion of the duodenum and retroflexion was performed in the stomach. The esophagus was normal. The GE ju nction was normal. There is mild erosive esophagitis in the antrum of the stomach. The stomach was otherwise normal. The first portion of the duodenum was normal. There were around six small arterio venous malformations in the second portion of the duodenum. There was one that was little bit larger that bled more actively once manipulated and this was controlled with argon plasma coagulation. The other five vascular ectasias were cauterized with APC with good hemostasis as well. The third porti on of the duodenum was normal. The air was suctioned from the stomach. The patient was turned aroun d. Rectal exam was performed and was normal. The colonoscope was advanced to the cecum where the il eocecal valve and appendiceal orifice were clearly identified. A brief view of the distal most ileum was unremarkable. The colonic mucosa was normal throughout. There was moderate diverticulosis thro ughout the colon. Retroflex views in the rectum were normal. IMPRESSION: 1. Multiple small vascular ectasias in the second portion of the duodenum cauterized with argon plas ma coagulation. One of these bled more actively and was more likely a significant bleeding source. This also was cauterized with argon plasma coagulation with good hemostasis confirmed. 2. Otherwise normal esophagogastroduodenoscopy. There some minimal erosive gastritis in the antrum. 3. Diverticulosis throughout the colon. 4. Otherwise normal colonoscopy. RECOMMENDATIONS: 1. Advance diet. 2. Follow trend of her hemoglobin.
[2017-11-08] MEDS: ALPRAZolam 1 MG TAB PO PRN (18:19)
[2017-11-09 04:53] LABS: #Eosinphils 0.2 thou/uL (0.0-0.7); #Lymphocytes 1.7 thou/uL (1.20-3.40); #Monocytes 0.8 thou/uL (0.11-0.59); #Neutrophils 4.1 thou/uL (1.40-6.50); %Basophils 0.5 % (0.0-1.0); %Eosinophils 2.7 % (0.0-10.0); %Monocytes 12.1 % (0.0-10.0); %Neutrophils 59.7 % (42.0-75.0); Hemoglobin 7.5 g/dL (12.0-16.0); Mean Corpuscular HGB CONC 30.4 g/dL (32.0-36.0); Mean Corpuscular Hemoglobin 21.8 pg (27.0-31.0); Mean Corpuscular Volume 71.5 fl (81.0-99.0); Mean Platelet Volume 9.6 fL (7.4-10.4); Platelet Count 356 thou/uL (130-400); RBC Distribution Width 23.1 % (11.5-14.5); Red Blood Cell (RBC) Count 3.43 mill/uL (4.20-5.40); White Blood Cell (WBC) Count 6.8 thou/uL (4.8-10.8)
[2017-11-09 05:25] LABS: Anion Gap 10 mmol/L (10-20); BUN (Urea Nitrogen) 6 mg/dL (9.8-20.1); Calc. Creatinine Clearance 101 mL/min (70-130); Calcium 8.2 mg/dL (7.8-10.44); Carbon Dioxide 24 mmol/L (23-31); Chloride 107 mmol/L (98-107); Estimated GFR-MDRD 75; Glucose 99 mg/dL (83-110); Magnesium 1.8 mg/dL (1.6-2.6); Potassium 3.4 mmol/L (3.5-5.1); Sodium 138 mmol/L (136-145)
[2017-11-09] MEDS: Flecainide 50 MG TAB PO SCH ×2 (08:41→20:56)
[2017-11-09] MEDS ORDERED: hydrALAZINE 20 MG/ML VIAL SLOW IVP PRN (13:14)
[2017-11-09] MEDS: ALPRAZolam 1 MG TAB PO PRN (13:28)
--- NOTE | 2017-11-09 17:16 | PDOC.PN ---
- Subjective Encounter Start Date: 11/09/17 Encounter Start Time: 14:00 Pt feels blaha nd weak, but no nausea, no F/C, no D/C, no CP or SOB. denies lightheadedness pt has vascualr ectasia with bleeding in duodenum, s/p plasma coagulation and stoppage of the bleeding. colonoscopy revealed diverticulosis only. all systems reviewed and neg x as above - Objective Resuscitation Status: Resuscitation Status FULL:Full Resuscitation MAR Reviewed: Yes Vital Signs & Weight: Vital Signs (12 hours) Temp Pulse Resp BP BP BP Pulse Ox 11/09/17 15:07 98.4 F 90 20 137/73 97 11/09/17 13:00 95 20 190/84 H 93 L 11/09/17 10:43 83 166/71 H 151/67 H 158/68 H 11/09/17 10:05 84 135/62 11/09/17 07:07 98.7 F 83 18 178/77 H 93 L I&O: 11/08/17 11/09/17 11/10/17 06:59 06:59 06:59 Intake Total 4000 970 Output Total 5000 Balance -1000 970 Result Diagrams: 11/09/17 03:55 11/09/17 03:55 Additional Labs: Accuchecks 11/09/17 10:09 POC Glucose 123 H Phys Exam - Physical Examination Constitutional: NAD HEENT: PERRLA, moist MMs, sclera anicteric, oral pharynx no lesions Neck: no nodes, no JVD, supple, full ROM Respiratory: no wheezing, no rales, no rhonchi, clear to auscultation bilateral Cardiovascular: RRR, no significant murmur, no rub Gastrointestinal: soft, non-tender, no distention, positive bowel sounds Musculoskeletal: no edema, pulses present Neurological: non-focal, normal sensation, moves all 4 limbs Lymphatic: no nodes Psychiatric: normal affect, A&O x 3 Skin: no rash, normal turgor, cap refill <2 seconds Dx/Plan (1) UGIB (upper gastrointestinal bleed) Code(s): K92.2 - GASTROINTESTINAL HEMORRHAGE, UNSPECIFIED Status: Resolved Comment: S/P EGD and colon. h/H stable. likely home in AM, recheck H/H, start iron replacement (2) Acute blood loss anemia Code(s): D62 - ACUTE POSTHEMORRHAGIC ANEMIA Status: Acute Comment: stable at 7.5 (3) Iron deficiency anemia due to chronic blood loss Code(s): D50.0 - IRON DEFICIENCY ANEMIA SECONDARY TO BLOOD LOSS (CHRONIC) Status: Chronic Comment: replace when taking po (4) Symptomatic anemia Code(s): D64.9 - ANEMIA, UNSPECIFIED Status: Acute (5) Caffeine dependence, continuous Code(s): F15.20 - OTHER STIMULANT DEPENDENCE, UNCOMPLICATED Status: Chronic (6) Paroxysmal A-fib Code(s): I48.0 - PAROXYSMAL ATRIAL FIBRILLATION Status: Chronic (7) PVD (peripheral vascular disease) Code(s): I73.9 - PERIPHERAL VASCULAR DISEASE, UNSPECIFIED Status: Chronic (8) 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 transplanted heart: [place] heart Associated angina: without angina Qualified Code(s): I25.10 - Atherosclerotic heart disease of [place] coronary artery without angina pectoris - Plan * .
[2017-11-09] MEDS ORDERED: Ferrous Sulfate 325 MG TAB PO SCH (17:30)
--- NOTE | 2017-11-09 18:19 | PRG ---
DATE OF SERVICE: 11/09/2017 SUBJECTIVE: Ms. Draper had no overt bleeding. OBJECTIVE: VITAL SIGNS: Temperature 98.4, pulse 90, blood pressure 137/73. GENERAL: She is in no acute distress, awake and alert. LUNGS: Clear to auscultation bilaterally. HEART: Regular rate and rhythm. ABDOMEN: Soft, nontender, nondistended. Bowel sounds are present. EXTREMITIES: No lower extremity edema. LABORATORY DATA: Her hemoglobin is stable at 7.5. IMPRESSION: Iron deficiency anemia secondary to chronic blood loss from vascular ectasias in the sma ll intestine. Multiple vascular ectasias were cauterized in the second portion of the duodenum yeste rday. One of these was a more significant bleeding source and bled more actively when manipulated. These were all cauterized. Colonoscopy showed diverticulosis, but no other focal bleeding source. RECOMMENDATIONS: 1. Start pantoprazole as the cauterized areas will ulcerate over the next couple of weeks. 2. Consider IV iron infusion versus transfusion to boost her baseline hemoglobin in case she has rec urrent bleeding. It should be okay to restart aspirin now and Plavix in 5 days. 3. Follow up in GI clinic in a couple of weeks to follow the trend of her hemoglobin. 4. I will sign off for now. Please call if GI can be of assistance.
[2017-11-10] MEDS ORDERED: Ferrous Sulfate 325 MG TAB PO SCH (08:00)
--- NOTE | 2017-11-10 08:52 | PDOC.CTH ---
Cardiology Progress Note - Subjective Awake, eating breakfast. Reports feeling "drained". Denies acute chest pain or shortness of breath. Has generalized weakness. No overt bleeding. - Objective Vital Signs Temp Pulse Resp BP BP Pulse Ox 11/10/17 08:00 98.8 F 89 18 168/67 H 94 L 11/10/17 04:00 98.3 F 90 18 167/65 H 93 L 11/10/17 00:00 98.4 F 85 18 124/90 92 L 11/09/17 11/10/17 11/11/17 06:59 06:59 06:59 Intake Total 970 1240 Balance 970 1240 - Physical Examination General/Neuro: alert & oriented x3, NAD Neck: no JVD present Lungs: CTA, unlabored respirations Heart: RRR Abdomen: NT/ND, other: (obese) - Telemetry Telemetry Rhythm: NSR - Labs Result Diagrams: 11/09/17 03:55 11/09/17 03:55 Troponin/CKMB CK-MB (CK-2) 0.8 ng/mL (0-6.6) 11/06/17 18:40 Troponin I Less than 0.010 ng/mL (< 0.028) 11/06/17 18:40 - Assessment/Plan 1.CECE 2/2 GI bleeding-S/P EGD 11/09, cauterization vascular ectasias in the small intestine, clopidogrel held. 1 unit PCs to be transfused today. Okay to resume ASA today 2.Hx AFlutter-maintaining NSR, continue Flecainide 3.PVD-S/P stent placement, restart clopidogrel in 5 days per GI recommendation 4.HTN-elevated, increase Cartia to 180mg daily F/U Dr. Dominguez 7-10 days,
[2017-11-10] MEDS: Flecainide 50 MG TAB PO SCH (08:55)
[2017-11-10] MEDS ORDERED: PROVENTIL INHALER 6.7 G (200 INHALATIONS) INH PRN (10:30)
[2017-11-10] MEDS ORDERED: Acetaminophen/Codeine 30-300mg Tablet PO PRN (10:33)
[2017-11-10] MEDS ORDERED: cefTRIAXone\\ROCEPHIN 1 GM in Sodium Chloride 0.9% 100 ML IVPB SCH (11:00)
[2017-11-10] MEDS ORDERED: Azithromycin 500 MG in Sodium Chloride 0.9% 250 ML 250 ML IVPB SCH (12:00)
[2017-11-10] MEDS ORDERED: Divalproex Sodium 250 MG (DR) TAB PO SCH (15:00)
[2017-11-10 16:06] VITALS: BP 165/71; TEMP 98.2
[2017-11-10] MEDS ORDERED: guaiFENesin ER 600 MG TAB PO SCH (21:00)
[2017-11-10] MEDS ORDERED: TROSPIUM 20 MG TABLET PO SCH (21:00)
[2017-11-11] MEDS ORDERED: Multivit, Therapeutic 1 TAB PO SCH (09:00)
[2017-11-11] MEDS ORDERED: Venlafaxine HCl XR 150 MG CAP PO SCH (09:00)
[2017-11-11] MEDS ORDERED: Amlodipine 5 MG TAB PO SCH (09:00)
[2017-11-11] MEDS ORDERED: Valsartan 80 MG TAB PO SCH (09:00)
== END 2017-11-10 16:10 | disposition home or self-care (01) | DRG 378 ==
LOC: ERS 18:15 → 2NO 20:06
PROVIDERS: ADMIT Emergency Medicine; ATTEND Emergency Medicine
PROC: 30233N1 Transfusion of Nonautologous Red Blood Cells into Peripheral Vein, Percutaneous Approach (ICD-10-PCS; 2017-11-06)
PROC: 0W3P8ZZ Control Bleeding in Gastrointestinal Tract, Via Natural or Artificial Opening Endoscopic (ICD-10-PCS; principal; 2017-11-08)
PROC: 0DJD8ZZ Inspection of Lower Intestinal Tract, Via Natural or Artificial Opening Endoscopic (ICD-10-PCS; 2017-11-08)
DX: K92.2 Gastrointestinal hemorrhage, unspecified (principal); D62 Acute posthemorrhagic anemia; F15.20 Other stimulant dependence, uncomplicated; I48.0 Paroxysmal atrial fibrillation; I12.9 Hypertensive chronic kidney disease with stage 1 through stage 4 chronic kidney disease, or unspecified chronic kidney disease; E78.5 Hyperlipidemia, unspecified; M19.90 Unspecified osteoarthritis, unspecified site; F32.9 Major depressive disorder, single episode, unspecified; F41.9 Anxiety disorder, unspecified; G47.33 Obstructive sleep apnea (adult) (pediatric); Z85.3 Personal history of malignant neoplasm of breast; Z79.02 Long term (current) use of antithrombotics/antiplatelets; Z95.5 Presence of coronary angioplasty implant and graft; Z79.899 Other long term (current) drug therapy; Z87.891 Personal history of nicotine dependence; I73.9 Peripheral vascular disease, unspecified; Z86.73 Personal history of transient ischemic attack (TIA), and cerebral infarction without residual deficits; J44.9 Chronic obstructive pulmonary disease, unspecified; I25.10 Atherosclerotic heart disease of native coronary artery without angina pectoris; D50.0 Iron deficiency anemia secondary to blood loss (chronic)
CPT/HCPCS: 36415; 36416; 36430; 71045; 80048; 80053; 81003; 82274; 82553; 82728; 83540; 83550; 83735; 84484; 85014; 85018; 85025; 85046; 85060; 86850; 86900; 86901; 93005; 94640; 94760; A4216; J0360; J0456; J2001; J2704; J7050; P9016

== ENCOUNTER 2018-01-25 11:07 | Outpatient (CLI) | payer MEDICARE | END 2018-01-25 11:08 | disposition home or self-care (01) | LOC: BICMAMMO 11:07 | PROVIDERS: ATTEND Family Medicine | DX: Z12.31 Encounter for screening mammogram for malignant neoplasm of breast (principal); Z80.3 Family history of malignant neoplasm of breast; Z85.3 Personal history of malignant neoplasm of breast | CPT/HCPCS: 77063; 77067 ==

== ENCOUNTER 2018-03-29 13:30 | Outpatient (CLI) | payer MEDICARE ==
[~2018-03-29 13:30] MED LIST: ISOVUE-370 76%-LOCM 1 ML ONE
--- NOTE | 2018-03-29 16:30 | CT ---
CT ANGIOGRAM NECK WITH IV CONTRAST AND 3D RECONSTRUCTIONS 03/29/18 HISTORY: Occlusion and stenosis of precerebral arteries. FINDINGS: There is atherosclerotic vascular calcifications seen in the aortic arch and at the origin of the gre at vessels. There is mild atherosclerotic plaque seen within the proximal left internal carotid arter y with only mild narrowing present. There is mild atherosclerotic irregularity also seen involving th e mid and distal portion of the right subclavian artery. The innominate artery and right common carotid artery are patent. There is mild atherosclerotic irregularity involving the mid portion of the left common carotid arter y at the level of the T1 vertebral body. However, this degree of narrowing in this region is less lianet n 50%. There is an additional area of focal narrowing seen within the more distal left common carotid artery with irregular atherosclerotic plaque. The degree of narrowing in this region approaches 50%. There are postsurgical changes related to left endarterectomy without significant focal stenosis in the left internal carotid artery. The right common carotid artery is patent. There are prominent atherosclerotic vascular calcification s seen at the carotid artery bifurcation involving the origin and proximal right internal carotid art brandan. There is moderate narrowing with the degree of narrowing just greater than 50% involving the pro ximal right internal carotid artery according to NASCET criteria. Vascular calcifications are seen in the carotid siphons bilaterally. The vertebral arteries are paten t bilaterally and codominant. The basilar artery is patent. There is atelectasis seen within the upper lung zones bilaterally with calcified granuloma in the rig ht lung apex. Multilevel degenerative changes are seen in the cervical spine. There is a subcentimeter hypodense nodule seen in the right lobe of the thyroid gland stable compared to prior study on 04/08/10. There is calcification seen in the more superior and lateral aspect of th e right lobe of the thyroid gland. Punctate hypodense focus seen in the left lobe of the thyroid glan d. [place] lenses are not seen. The visualized paranasal sinuses and mastoid air cells are clear. IMPRESSION: 1. Irregular atherosclerotic plaque with moderate narrowing involving the distal left common car otid artery. 2. Postsurgical changes related to left carotid endarterectomy with less than 50% maximal stenos is in the left internal carotid artery based on NASCET criteria. 3. Calcified irregular atherosclerotic plaque involving the origin and proximal right internal c arotid artery. There is suggestion of moderate degree of narrowing with degree of narrowing just grea ter than 50%, based on NASCET criteria, involving the proximal right internal carotid artery. 4. Patent bilateral vertebral arteries. 5. Other incidental findings are as noted above. POS: RAMIREZ
== END 2018-03-29 13:31 | disposition home or self-care (01) ==
LOC: BICCT 13:30
PROVIDERS: ATTEND Thoracic Surgery (Cardiothoracic Vascular Surgery)
DX: I65.8 Occlusion and stenosis of other precerebral arteries (principal); I65.21 Occlusion and stenosis of right carotid artery; J98.11 Atelectasis; J84.10 Pulmonary fibrosis, unspecified; M47.892 Other spondylosis, cervical region; E04.1 Nontoxic single thyroid nodule; E07.89 Other specified disorders of thyroid; Z98.890 Other specified postprocedural states
CPT/HCPCS: 70498; 82565

== ENCOUNTER 2018-10-22 15:43 | Emergency (ER) | payer MEDICARE ==
[2018-10-22 17:41] LABS: #Lymphocytes 1.5 thou/uL (1.20-3.40); #Monocytes 0.6 thou/uL (0.11-0.59); #Neutrophils 5.3 thou/uL (1.40-6.50); %Basophils 0.4 % (0.0-1.0); %Eosinophils 0.4 % (0.0-10.0); %Lymphocytes 20.1 % (21.0-51.0); %Monocytes 8.6 % (0.0-10.0); %Neutrophils 70.5 % (42.0-75.0); Hemoglobin 13.4 g/dL (12.0-16.0); Mean Corpuscular HGB CONC 32.5 g/dL (32.0-36.0); Mean Corpuscular Hemoglobin 29.9 pg (27.0-31.0); Mean Corpuscular Volume 91.9 fL (78.0-98.0); Platelet Count 222 thou/uL (130-400); RBC Distribution Width 13.7 % (11.5-14.5); Red Blood Cell (RBC) Count 4.47 mill/uL (4.20-5.40); White Blood Cell (WBC) Count 7.5 thou/uL (4.8-10.8)
[2018-10-22 18:10] LABS: ALT (SGPT) 14 U/L (8-55); AST (SGOT) 19 U/L (5-34); Albumin 4.2 g/dL (3.4-4.8); Alkaline Phosphatase 59 U/L (40-150); Anion Gap 15 mmol/L (10-20); BUN (Urea Nitrogen) 11 mg/dL (9.8-20.1); Bilirubin, Total 0.6 mg/dL (0.2-1.2); Calc. Creatinine Clearance 0 mL/min (70-130); Calcium 9.9 mg/dL (7.8-10.44); Carbon Dioxide 26 mmol/L (23-31); Chloride 103 mmol/L (98-107); Estimated GFR-MDRD 71; Globulin 3.2 g/dL (2.4-3.5); Glucose 119 mg/dL (83-110); Potassium 4.1 mmol/L (3.5-5.1); Protein, Total 7.4 g/dL (6.0-8.3); Sodium 140 mmol/L (136-145)
--- NOTE | 2018-10-22 18:49 | RAD ---
PA AND LATERAL OF THE CHEST 10/22/18 INDICATION: History of dizziness. COMPARISON: Prior exam dated 11/06/17. FINDINGS: There is mild cardiomegaly. No confluent air space opacity or pleural effusion is evident. There is a calcified granuloma in the right upper lobe. There is multilevel spondylosis of the thoracic spine. IMPRESSION: 1. Mild cardiomegaly. 2. No acute air space opacity or pleural effusion is noted. 3. There is findings of prior granulomatous disease. POS: BH
== END 2018-10-22 20:53 | disposition home or self-care (01) ==
LOC: ERS 15:43
DX: R55 Syncope and collapse (principal); E78.5 Hyperlipidemia, unspecified; I48.91 Unspecified atrial fibrillation; I10 Essential (primary) hypertension; F41.9 Anxiety disorder, unspecified; Z87.891 Personal history of nicotine dependence; Z79.899 Other long term (current) drug therapy; Z79.82 Long term (current) use of aspirin
CPT/HCPCS: 36415; 71046; 80053; 83880; 84484; 85025; 93005; J1040; J2001; Q9967; S0020

== ENCOUNTER 2018-10-24 11:56 | Inpatient (IN) | payer MEDICARE ==
[2018-10-24 12:59] LABS: Bilirubin Negative (Negative); Blood, Urine Small (Negative); Clarity CLEAR (Clear); Glucose, Urine (Dipstick) Negative (Negative); Leukocyte Negative (Negative); Nitrite Negative (Negative); Protein, Urine (Dipstick) 300 mg/dL (Neg-Trace); Specific Gravity, Urine 1.008 (1.002-1.036); Urobilinogen 0.2 mg/dL (0.2-1.0); pH, Urine 7.5 (5.0-9.0)
[2018-10-24 13:01] LABS: Bacteria/HPF None Seen HPF (None Seen); Hyaline Casts/LPF 0-3 HYALINE CAST LPF (0-3 Hyaline); Pathc Cast-AUWi Flag 0.13 (0-2.49); RBC/HPF 0-3 HPF (0-3); Squamous Epithelial 0-3 HPF (0-3); WBC/HPF 0-3 HPF (0-3)
[2018-10-24 13:07] LABS: Renal Epithelial None Seen HPF (0-3); Transitional Epithelial NONE SEEN HPF (0-3)
[2018-10-24 13:22] LABS: #Lymphocytes 1.4 thou/uL (1.20-3.40); #Monocytes 0.8 thou/uL (0.11-0.59); #Neutrophils 6.8 thou/uL (1.40-6.50); %Basophils 0.4 % (0.0-1.0); %Eosinophils 0.2 % (0.0-10.0); %Lymphocytes 15.5 % (21.0-51.0); %Monocytes 9.2 % (0.0-10.0); %Neutrophils 74.7 % (42.0-75.0); Hemoglobin 14.3 g/dL (12.0-16.0); Mean Corpuscular HGB CONC 31.9 g/dL (32.0-36.0); Mean Corpuscular Hemoglobin 29.1 pg (27.0-31.0); Mean Corpuscular Volume 91.4 fL (78.0-98.0); Mean Platelet Volume 10.3 fL (7.4-10.4); Platelet Count 214 thou/uL (130-400); RBC Distribution Width 13.8 % (11.5-14.5); White Blood Cell (WBC) Count 9.1 thou/uL (4.8-10.8)
--- NOTE | 2018-10-24 13:48 | CT ---
CT Brain WO Con: 10/24/2018 1:22 PM CLINICAL HISTORY: Fall. IMAGING TECHNIQUE: Multiple CT images were obtained of the brain without IV contrast. COMPARISON: June 13, 2017 FINDINGS: Extra axial spaces: Widened. Hemorrhage: None. Ventricular system: Normal in size and morphology for the patient's age. Basal cisterns: Normal. Cerebral parenchyma: Microvascular changes. Midline shift: None. Cerebellum: Normal. Brainstem: Normal. OTHER: Calvarium: Normal. Vascular system: There are mild scattered vascular calcifications involving the intracranial ICAs.. Visualized Paranasal sinuses: Clear. Visualized Orbits: The [place] lenses have been replaced. Visualized upper cervical spine: Normal. Sella and skull base: Normal. IMPRESSION: No acute intracranial abnormality. Stable microvascular changes.
[2018-10-24 13:58] LABS: ALT (SGPT) 20 U/L (8-55); AST (SGOT) 25 U/L (5-34); Albumin 4.2 g/dL (3.4-4.8); Alkaline Phosphatase 56 U/L (40-150); Anion Gap 15 mmol/L (10-20); BUN (Urea Nitrogen) 9 mg/dL (9.8-20.1); Bilirubin, Total 0.7 mg/dL (0.2-1.2); CK (CPK) 271 U/L (29-168); Calc. Creatinine Clearance 0 mL/min (70-130); Calcium 9.7 mg/dL (7.8-10.44); Carbon Dioxide 27 mmol/L (23-31); Chloride 98 mmol/L (98-107); Estimated GFR-MDRD 76; Globulin 3.8 g/dL (2.4-3.5); Glucose 131 mg/dL (83-110); Sodium 137 mmol/L (136-145)
[2018-10-24] MEDS ORDERED: NS 0.9% w/ 40 MEQ KCL 1,000 ML IV SCH (14:15)
--- NOTE | 2018-10-24 15:07 | PDOC.FPRHP ---
- History of Present Illness Chief Complaint: Found down History of Present Illness: Ms Draper is a 78yo female with pmh of HTN, CKD3, HFpEF, TODD, HLD presenting by EMS after she was found down at home. Last seen by family the night prior. They went to check on her today and found her after she had slid out from the bed at around 1130am. Pt seemed confused to family. She slids from her bed sometimes but they are usually able to help her up, this time they weren't so they called EMS. She typically is independent with ADLS. Has family to help with iADLs. Recently seen in ED on Sunday 10/22. PT has not taken BP medication today. Reported headache to ED staff. Has hx of paroxysmal afib not on anticoagulation. No known recent illness or fever. PCP: RONY (Dr Self) ED Course: Started on Cardene gtt, Aspirin AR. CT neg. Drug Name Dose Ordered Route Status Time *potassium chloride in 0.9%NaCl 40 mEq IV Fluid Infusion Given 14:50 10/24/2018 diltiazem intravenous 20 mg IV Push Given 14:48 10/24/2018 *Additional information available - Allergies/Adverse Reactions Allergies Allergy/AdvReac Type Severity Reaction Status Date / Time No Known Allergies Allergy Verified 10/24/18 17:05 - Home Medications Medication Instructions Recorded Confirmed Type HYDROcodone Bit/APAP 10/325 [[place]] 1 tab PO ASDIR PRN 04/12/16 10/24/18 History Flecainide [Tambocor] 50 mg PO BID 11/06/17 10/24/18 History HYDROcodone Bit/APAP 10/325 [[place]] 1 tab PO BID PRN 11/06/17 10/24/18 History Diltiazem HCl [Cartia XT] 120 mg PO DAILY 11/07/17 10/24/18 History Aspirin Chewable [Aspirin Chewable 81 mg PO DAILY 10/25/18 10/25/18 History Tablet] Cholecalciferol (Vitamin D3) 1,000 unit PO DAILY 10/25/18 10/25/18 History [Vitamin D3] Citalopram [CeleXA] 20 mg PO DAILY 10/25/18 10/25/18 History Oxybutynin Chloride 2.5 mg PO BID 10/25/18 10/25/18 History - History PMHx: Depression/anxiety, iron deficiency anemia, CKD3, OA, PAD, Carotid artery stenosis, HFpEF, HTN, HLD, TODD, hx of breast cancer s/p lumpectomy 1999 PSHx: Carotid endarterectomy 2010, hysterectomy , laminectomy , left breast lumpectomy 1999, Bilateral femoral bypass 2006 FHx: Brother- [place] &HTN Breast cancer- neice Mother- pancreatic cancer Brother- Cirrhosis & DM Social: . 2 children. Typically independent with ADLs - Review of Systems ROS unobtainable: due to mental status Musculoskeletal: denies: pain - Vital signs BP: 240/90 HR: 88 RR: 20 Tmax: 98.6 Pox: 96% on RA Wt: 100kg - Physical Exam Constitutional: NAD -Constitutional: Falling asleep HEENT: normocephalic and atraumatic, PERRLA, conjunctiva clear, oropharynx clear -HEENT: Dry mucous membranes. Wears dentures Neck: trachea midline, no bruits Heart: RRR -Heart: systolic murmur Lungs: CTAB, no respiratory distress Abdomen: soft, non-tender, bowel sounds present Musculoskeletal: normal structure, normal tone, other (Able to move all 4 limbs. ) Neurological: DTRs 2+, other (no clonus. Able to move all 4 limbs.) Skin: no rash/lesions, good turgor Heme/Lymphatic: no unusual bruising or bleeding -Psychiatric: Oriented to person, place, city but not time or situation FMR H&P: Results - Labs Result Diagrams: 10/26/18 06:53 10/26/18 06:53 Lab results: WBC 9.1 thou/uL (4.8-10.8) 10/24/18 13:10 Hgb 14.3 g/dL (12.0-16.0) 10/24/18 13:10 Hct 44.8 % (36.0-47.0) 10/24/18 13:10 MCV 91.4 fL (78.0-98.0) 10/24/18 13:10 Plt Count 214 thou/uL (130-400) 10/24/18 13:10 Neutrophils % 74.7 % (42.0-75.0) 10/24/18 13:10 Sodium 137 mmol/L (136-145) 10/24/18 13:10 Potassium 3.0 mmol/L (3.5-5.1) L 10/24/18 13:10 Chloride 98 mmol/L (98-107) 10/24/18 13:10 Carbon Dioxide 27 mmol/L (23-31) 10/24/18 13:10 BUN 9 mg/dL (9.8-20.1) L 10/24/18 13:10 Creatinine 0.74 mg/dL (0.6-1.1) 10/24/18 13:10 Glucose 131 mg/dL (83-110) H 10/24/18 13:10 Calcium 9.7 mg/dL (7.8-10.44) 10/24/18 13:10 Total Bilirubin 0.7 mg/dL (0.2-1.2) 10/24/18 13:10 AST 25 U/L (5-34) 10/24/18 13:10 ALT 20 U/L (8-55) 10/24/18 13:10 Alkaline Phosphatase 56 U/L (40-150) 10/24/18 13:10 Creatine Kinase 271 U/L (29-168) H 10/24/18 13:10 Serum Total Protein 8.0 g/dL (6.0-8.3) 10/24/18 13:10 Albumin 4.2 g/dL (3.4-4.8) 10/24/18 13:10 Urine Ketones Trace mg/dL (Negative) H 10/24/18 12:37 Urine Blood Small (Negative) H 10/24/18 12:37 Urine Nitrite Negative (Negative) 10/24/18 12:37 Ur Leukocyte Esterase Negative (Negative) 10/24/18 12:37 Urine RBC 0-3 HPF (0-3) 10/24/18 12:37 Urine WBC 0-3 HPF (0-3) 10/24/18 12:37 Ur Squamous Epith Cells 0-3 HPF (0-3) 10/24/18 12:37 Urine Bacteria None Seen HPF (None Seen) 10/24/18 12:37 - EKG Interpretation EKG: normal sinus rhythm, Rate (beats per minute): 94, with infrequent premature ventricular complexes, T waves, consider inferior ischemia, [place] normal, Prolonged QT. - Radiology Interpretation CT scan - head Status: report reviewed by me Additional comment: unremarkable FMR H&P: A/P - Problem List (1) Hypertensive emergency Current Visit: Yes Status: Acute Code(s): I16.1 - HYPERTENSIVE EMERGENCY (2) Hypertensive encephalopathy Current Visit: Yes Status: Resolved Code(s): I67.4 - HYPERTENSIVE ENCEPHALOPATHY (3) Atrial fibrillation status post cardioversion Current Visit: No Status: Chronic Code(s): I48.91 - UNSPECIFIED ATRIAL FIBRILLATION (4) CKD (chronic kidney disease) stage 2, GFR 60-89 ml/min Current Visit: No Status: Chronic Code(s): N18.2 - CHRONIC KIDNEY DISEASE, STAGE 2 (MILD) (5) HTN (hypertension) Current Visit: No Status: Chronic Code(s): I10 - ESSENTIAL (PRIMARY) HYPERTENSION (6) CAD (coronary artery disease) Current Visit: No Status: Chronic Code(s): I25.10 - ATHSCL HEART DISEASE OF [place] CORONARY ARTERY W/O ANG PCTRS Qualifiers: Coronary Disease-Associated Artery/Lesion type: [place] artery [place] vs. transplanted heart: [place] heart Associated angina: without angina Qualified Code(s): I25.10 - Atherosclerotic heart disease of [place] coronary artery without angina pectoris (7) Iron deficiency anemia due to chronic blood loss Current Visit: No Status: Chronic Code(s): D50.0 - IRON DEFICIENCY ANEMIA SECONDARY TO BLOOD LOSS (CHRONIC) Comment: replace when taking po (8) PVD (peripheral vascular disease) Current Visit: No Status: Chronic Code(s): I73.9 - PERIPHERAL VASCULAR DISEASE, UNSPECIFIED (9) Paroxysmal A-fib Current Visit: No Status: Chronic Code(s): I48.0 - PAROXYSMAL ATRIAL FIBRILLATION (10) Diastolic CHF with preserved left ventricular function, NYHA class 2 Current Visit: No Status: Chronic Code(s): I50.30 - UNSPECIFIED DIASTOLIC ( CONGESTIVE) HEART FAILURE - Plan Encephalopathy - Likely hypertensive encephalopathy. Ddx also includes toxins and acute CVA - Will eval the above with CTA head and neck. CT was negative. Ordered UDS, TSH - Will give ASA AR - Initial trop neg, will trend - Monitor BPs hourly. - MRI in AM - Starting Cardene drip, will decrease MAP by 20% in first hour. 10% over next 23 if CTA neg - CK only mildly elevated - NPO until dysphagia screen - Admit to ICU HTN emergency - Manage as above Deconditioning - PT/OT consulted - CM consulted - Uses walker to ambulate. Typically independent with ADLs. Requires assistance with iADLs Hypokalemia - 3.0, corrected in ED with KCl 40IV Elevated CK - 271 HLD - Continue home meds Depression/anxiety Ion deficiency anemia - Hgb 14.3 CKD - GFR 76 OA - Pt takes [place], last taken 2-3 days ago. PAD HFpEF - Strict I&Os, Fluid restriction, daily wts TODD - CPAP at HS Hx of breast cancer s/p lumpectomy 1999 Code Status: FULL DVT ppx: SCDs PCP: RONY (Dr Self) FMR H&P: Upper Level - Pertinent history 78 year old female presents from home after being found down at home by her family. Patient reportedly lives alone and is A&0x3 at baseline and able to perform her own ADL's. Patient was last seen normal around 3 PM yesterday evening. She told her family to go away at that time. When asked if she had taken her medication, she said yes; however, family states that she has pill packs and the pill packs still had the medication indicating that she had not taken it. Patient has reportedly been declining steadily over the last several weeks. She has become a little weaker and has been slumping down in her bed from time to time. Family has been concerned about this. They are requesting she get placement upon d/c from the hospital. Patient was seen in ED on Sunday for elevated BP and lower extremity swelling. She was able to be d/c'd home without admission to the hospital at that time. Patient is also on [place] and xanax per family, but she has not taken the xanax in several days. Patient has not presented this way previously. - Pertinent findings General: Patient is alert and oriented x2. She will answer some questions appropriately. HEENT: Left pupil slow to react. Pupils are equally round and both do react to light. Lips appear dry. Cards: RRR. 2/6 systolic murmur heard best when auscultated to right of sternum Resp: CTA b/l Neuro: Difficult exam d/t mental status. No clonus, No apparent focal deficits, GCS 15, tremor Ext: Dry, flaky LE's, no edema - Plan Date/Time: 10/24/18 1506 I, Nikki Brink, have evaluated this patient and agree with findings/plan as outlined by internet sales representative resident. Pertinent changes/additions are listed here. A/P: 1. Hypertensive emergency - HTN encephalopathy vs. CVA - AMS; A&O x2, baseline per family A&O x3 with no underlying dementia - Nicardipine drip with goal BP <220/120 until CTA head and neck result to rule out stroke - CT brain negative for acute findings, mention of chronic microvascular changes - Treat for decrease in MAP by 20% in first hour and by an additional 10% in the next 23 hours once CVA ruled out - ASA d/t concern for CVA - TSH pending - Transition to home medications/PO medications once patient passes dysphagia screen - Troponin negative 2. Encephalopathy, likely hypertensive - Cannot rule out CVA, will obtain CTA head/neck. CT brain neg - ASA given AR - Consider MRI in AM - Decrease MAP by 20% in first hour and additional 10% in next 23 hours once CTA head/neck results - Possibility that it could be toxin related d/t norco and xanax use; drug screen positive, family reports she has not taken benzo in several days and she likely did not take norco today given that she was by side of bed when they found her - Patient found down near side of her bed this AM, uncertain how long down for - CK only mildly elevated in 200's 3. CKD stage 3 - Hx in chart, but GFR 76 today - Continue to monitor kidney function 4. Hypokalemia - Replace and monitor 5. Chronic Pain - On [place]; hold d/t mental status 6. PAD 7. Carotid artery stenosis 8. HLD - Continue home meds when tolerating PO 9. TODD - Monitor O2 sats at night - Uncertain if on CPAP at home 10. Hx breast cancer s/p lumpectomy in 1999 11. Depression/anxiety - Continue home meds once tolerating PO 12. HFpEF - Gentle fluids - Patient currently looks volume down Dispo: Admit to ICU. Pt on nicardipin gtt for BP control. Addendum - Attending - Attending Attestation Date/Time: 10/24/18 1704 I personally evaluated the patient and discussed the management with Dr. Cyr and Dr. Brink I agree with the History, Examination, Assessment and Plan documented above with any addition or exceptions noted below. 78 yo female with multiple chronic conditions presents for AMS Patient found down this morning by family and altered. EMS contacted. BP >200/ 110. BP reminds severely elevated. Patient not oriented and speech is in comprehensible. CT reviewed. CTA ordered. Admit to ICU. Not responding to IV meds. Will start CCB drip Stat. Trend trops. Electrolytes stable. Papo as needed. Rule out other causes of encephalopathy. Monitor closely throughout the night. MRI in AM. Megan
[2018-10-24 16:12] LABS: Acetaminophen Less than 6.0 mcg/mL (10.0-30.0); Alcohol Less than 10 mg/dL (Less than 10); Salicylate Less than 8.0 mg/dL (15.0-30.0)
[2018-10-24 16:21] LABS: Amphetamine Not Detected (NotDetected); Barbiturates Screen Not Detected (NotDetected); Benzodiazepine Screen Detected (NotDetected); Cocaine Metabolite Screen Not Detected (NotDetected); Medtox Control Line Valid? VALID (VALID); Medtox Reader # READER 1; Methadone Not Detected (NotDetected); Methamphetamine Not Detected (NotDetected); Opiate Screen Detected (NotDetected); Oxycodone Screen Not Detected (NotDetected); Phencyclidine (PCP) Not Detected (NotDetected); THC/Cannabinoid Screen Not Detected (NotDetected); Tricyclic Screen Not Detected (NotDetected)
[2018-10-24 16:38] LABS: Troponin I Less than 0.010 ng/mL (< 0.028)
[2018-10-24] MEDS ORDERED: Aspirin 300 MG Suppository ONE (16:40)
[2018-10-24] MEDS ORDERED: Sodium Chloride 0.9% (PF) 10 ML VIAL FS PRN (17:06)
--- NOTE | 2018-10-24 17:07 | CT ---
CTA of the head with IV contrast and 3-D reformatted imaging. CTA of the neck with IV contrast and 3-D reformatted imaging. INDICATION: History of fall COMPARISON: Noncontrast CT the brain dated October 24, 2018 FINDINGS: CTA of the head with and without contrast: No acute infarct, hemorrhage or hydrocephalus is present. This is in place and there are vertebral mi dline. No hemodynamically significant stenosis, occlusion or aneurysmal formation is demonstrated. There is mild chronic small vessel white matter ischemic change. There are cahto lenses have been re placed bilaterally. There is a origin to the right CIGAR TOBACCO REHANDLER. CTA of the neck with contrast: There is 80% luminal caliber narrowing involving the proximal right ICA, just distal to the bifurcati on. There is mild luminal caliber narrowing involving the proximal to mid left ICA. There are surgical clips near this region and may reflect sequela of prior carotid endarterectomy. There is mil d narrowing involving the origin of the left vertebral artery. The right vertebral artery appears patent throughout its course. There is emphysematous change involving lung apices. There is a calcified granuloma in the right uppe r lobe. The visualized prevertebral and paravertebral soft tissues are normal appearing. IMPRESSION: 1. No hemodynamically significant stenosis, occlusion or aneurysmal formation seen involving the head . 2. 80% luminal caliber narrowing involving the proximal right ICA, just distal to the bifurcation 3. Mild luminal caliber narrowing involving the proximal mid left ICA with adjacent surgical clips reardon spicious for a changes of prior endarterectomy. 4. Mild narrowing involving the origin of the left vertebral artery. 5. Emphysema
[2018-10-24] MEDS: Potassium Chloride 20 MEQ in Premix Bag 1 BAG IVPB SCH ×2 (18:33→18:35)
[2018-10-24] MEDS: Lactated Ringer's 1,000 ML IV SCH (18:34)
[2018-10-24 19:55] LABS: Troponin I 0.029 ng/mL (< 0.028)
[2018-10-25 05:35] LABS: #Lymphocytes 1.8 thou/uL (1.20-3.40); #Neutrophils 6.7 thou/uL (1.40-6.50); %Basophils 0.3 % (0.0-1.0); %Eosinophils 0.4 % (0.0-10.0); %Lymphocytes 18.4 % (21.0-51.0); %Monocytes 10.7 % (0.0-10.0); %Neutrophils 70.1 % (42.0-75.0); Hemoglobin 13.6 g/dL (12.0-16.0); Mean Corpuscular HGB CONC 32.4 g/dL (32.0-36.0); Mean Corpuscular Hemoglobin 29.8 pg (27.0-31.0); Mean Platelet Volume 10.7 fL (7.4-10.4); Platelet Count 206 thou/uL (130-400); RBC Distribution Width 13.9 % (11.5-14.5); Red Blood Cell (RBC) Count 4.58 mill/uL (4.20-5.40); White Blood Cell (WBC) Count 9.6 thou/uL (4.8-10.8)
[2018-10-25 05:59] LABS: Anion Gap 14 mmol/L (10-20); BUN (Urea Nitrogen) 11 mg/dL (9.8-20.1); CK (CPK) 146 U/L (29-168); Calc. Creatinine Clearance 106 mL/min (70-130); Calcium 9.2 mg/dL (7.8-10.44); Carbon Dioxide 25 mmol/L (23-31); Chloride 101 mmol/L (98-107); Estimated GFR-MDRD 79; Glucose 106 mg/dL (83-110); Potassium 3.1 mmol/L (3.5-5.1); Sodium 137 mmol/L (136-145)
--- NOTE | 2018-10-25 07:08 | PDOC.FM ---
- Subjective Subjective: Seen at bedside this morning resting comfortably. States that she feels "100% better today." She states that she remembers her daughter waking her up on the floor yesterday and nothing else. Today she is A&O x4 - Objective MAR Reviewed: Yes Vital Signs & Weight: Vital Signs (12 hours) Temp Pulse Ox 10/25/18 04:00 98.7 F 10/24/18 19:30 95 Weight Weight 102.4 kg Most Recent Monitor Data Heart Rate from ECG 102 NIBP 182/89 NIBP BP-Mean 120 Respiration from ECG 15 SpO2 98 I&O: 10/24/18 10/25/18 10/26/18 06:59 06:59 06:59 Intake Total 1426 Output Total 200 Balance 1226 Result Diagrams: 10/25/18 04:35 10/25/18 04:35 Phys Exam - Physical Examination Constitutional: NAD HEENT: moist MMs Neck: no JVD Respiratory: clear to auscultation bilateral Cardiovascular: RRR 3/6 systolic murmur loudest over R sternal border, radiates to carotid Gastrointestinal: soft, non-tender, no distention Musculoskeletal: no edema Neurological: non-focal, normal sensation, moves all 4 limbs Psychiatric: normal affect, A&O x 3 Skin: no rash Dx/Plan (1) Hypertensive emergency Code(s): I16.1 - HYPERTENSIVE EMERGENCY Status: Acute (2) Hypertensive encephalopathy Code(s): I67.4 - HYPERTENSIVE ENCEPHALOPATHY Status: Resolved (3) Systolic murmur Code(s): R01.1 - CARDIAC MURMUR, UNSPECIFIED Status: Acute (4) Atrial fibrillation status post cardioversion Code(s): I48.91 - UNSPECIFIED ATRIAL FIBRILLATION Status: Chronic (5) CKD (chronic kidney disease) stage 2, GFR 60-89 ml/min Code(s): N18.2 - CHRONIC KIDNEY DISEASE, STAGE 2 (MILD) Status: Chronic (6) HTN (hypertension) Code(s): I10 - ESSENTIAL (PRIMARY) HYPERTENSION Status: Chronic (7) CAD (coronary artery disease) Code(s): I25.10 - ATHSCL HEART DISEASE OF [place] CORONARY ARTERY W/O ANG PCTRS Status: Chronic Qualifiers: Coronary Disease-Associated Artery/Lesion type: [place] artery [place] vs. transplanted heart: [place] heart Associated angina: without angina Qualified Code(s): I25.10 - Atherosclerotic heart disease of [place] coronary artery without angina pectoris (8) Hypokalemia Code(s): E87.6 - HYPOKALEMIA Status: Acute (9) Carotid stenosis, right Code(s): I65.21 - OCCLUSION AND STENOSIS OF RIGHT CAROTID ARTERY Status: Chronic - Plan Plan: 1. Hypertensive Emergency - blood pressure has improved with cardene drip, will work to dc drip today and start PO meds - encephalopathy has resolved. - 2. Hypokalemia - check Mg, replace K and Mg as indicated. 3. New systolic murmur - given radiation to carotid, will get echo to eval for 4. Carotid stenosis - CTA finds R ICA with 80% stenosis. - Will discuss with patient and consider CV surg eval Dispo: patient is currently stable and improving. Will likely be ready to move out of ICU today or tomorrow based on ability to dc IV cardene. Addendum - Attending - Attending Attestation Date/Time: 10/25/18 8754 I personally evaluated the patient and discussed the management with Dr. Haley I agree with the History, Examination, Assessment and Plan documented above with any addition or exceptions noted below. No hemispheric symptoms on exam or by questioning. Patients BP controlled to be converted po rx and de-escalate level of care when off drip. Patient alert Ox3 this AM. For Echocardiography today.
[2018-10-25] MEDS: Enoxaparin Sodium 40 MG/0.4 ML SYRINGE SC SCH (07:41)
[2018-10-25] MEDS: Lisinopril 10 MG TAB PO SCH (07:42)
[2018-10-25] MEDS: Clopidogrel Bisulfate 75 MG TAB PO SCH ×2 (07:42→07:46)
[2018-10-25] MEDS: Ferrous Sulfate 325 MG TAB PO SCH ×2 (07:43→17:32)
[2018-10-25] MEDS ORDERED: Pantoprazole 40 MG VIAL IVP SCH (09:00)
[2018-10-25] MEDS ORDERED: Magnesium Sulfate 3 GM in Sodium Chloride 0.9% 100 ML IVPB SCH (10:15)
[2018-10-25] MEDS ORDERED: Potassium Chloride 20 MEQ TAB PO SCH ×2 (11:15→17:00)
[2018-10-25] MEDS: Lactated Ringer's 1,000 ML IV SCH (12:37)
[2018-10-25] MEDS ORDERED: Oxybutynin 5 MG TAB PO SCH (21:00)
[2018-10-25] MEDS: Flecainide 50 MG TAB PO SCH (21:16)
--- NOTE | 2018-10-25 21:42 | CON ---
DATE OF CONSULTATION: 10/25/2018 SERVICE: Pulmonary Medicine. REASON FOR CONSULT: ICU patient. HISTORY OF PRESENT ILLNESS: The patient is a 78-year-old white female with past medical history significant for obstructive sleep apnea, chronic kidney disease , and hypertension. She was in her usual state of health yesterday evening. She was found down and confused by her family this morning. In the emergency department , she had some headaches. Her blood pressures were quite elevated. She resumed her p.o. blood pressure medications and she was dehydrated, was initially on gentle hydration overnight. This morning, she is no longer requiring any drips to control blood pressure. She is running with systolics in the 130s. She denies any current fevers, chills, shortness of breath, cough, nausea, vomiting, diarrhea, or chest discomfort. She does not remember the events of what happened. In the emergency department, she was found to have both benzodiazepines and narcotics in her urine drug screen. PAST MEDICAL HISTORY: 1. Coronary artery disease. 2. Hypertension. 3. Dyslipidemia. 4. Peripheral vascular disease. 5. Chronic diastolic heart failure. 6. Obstructive sleep apnea. 7. Chronic kidney disease, stage 3. 8. Iron-deficiency anemia. 9. Osteoarthritis. 10. History of breast cancer. PAST SURGICAL HISTORY: 1. Carotid endarterectomy in 2010. 2. Hysterectomy in 1979. 3. Laminectomy in . 4. Lumpectomy of the left breast in 1999. 5. Bilateral femoral artery bypass in 2006. FAMILY HISTORY: Noncontributory. SOCIAL HISTORY: Negative for alcohol, tobacco, or illicit drug use. She requires assistance with some IADLs. Apparently, she lives at home. She has no exposure to chemicals, dust, asbestos, or tuberculosis. ALLERGIES: NO KNOWN DRUG ALLERGIES. MEDICATIONS: List of her inpatient medications was reviewed. No specific updates were made at this time. REVIEW OF SYSTEMS: General, head, ears, eyes, nose, throat, cardiovascular, respiratory, GI, , musculoskeletal, neurologic, and skin are negative except as mentioned in the HPI. PHYSICAL EXAMINATION: VITAL SIGNS: Afebrile, pulse 97, blood pressure 144/86, respirations 16, and saturation 100% on room air. GENERAL: The patient is awake and alert, in no apparent distress. LUNGS: Decent air entry without any prolonged expiratory phase or wheezing present. HEART: Normal rate, regular. ABDOMEN: Soft, nontender, and nondistended. Bowel sounds are positive. MUSCULOSKELETAL: No cyanosis or clubbing. There is no pitting in the bilateral lower extremities. SKIN: Tenting is present. : No Mel[place]rez. NEUROLOGICAL: Grossly nonfocal. LABORATORY DATA: CBC is unremarkable x2. Potassium is 3.1, but basic metabolic profile is otherwise unremarkable. Liver function studies are normal other than CK of 271. Troponin is downtrending to 0.021. TSH falls within normal limits. Urinalysis is unremarkable. Tox screen is positive for opiates and benzodiazepines. Otherwise, it is unremarkable. Salicylates, acetaminophen, and alcohol level are negative. IMAGING: CT [place] demonstrates no vascular abnormalities. She has an 80% caliber narrowing of the proximal right ICA distal to the bifurcation. Emphysema is noted. CT of the brain demonstrates no acute intracranial abnormality. ASSESSMENT: 1. Hypertensive emergency, resolved. 2. Dehydration, improved. 3. Metabolic encephalopathy secondary to likely overuse of benzodiazepine and narcotic. 4. Dementia, suspected. DISCUSSION AND PLAN: The patient has resumed her home blood pressure medications and her blood pressure is under good control without any drips. She is requiring very infrequent doses of p.r.n. medications. As such, she can be transitioned to the telemetry unit. When she arrives there, she will have no further requirements for inpatient Pulmonary Critical Care opinion. I would do formal dementia screening in the outpatient setting when she is in the outpatient setting. She is only oriented x1 at this point and she is making up stories/confabulating beautifully. It is not clear to me whether this was part of her initial encephalopathy which will get better or whether or not, she has a formal underlying cognitive impairment. If she remains in the ICU, I will follow here. 70 minutes have been devoted to this patient in various activities. I personally reviewed all imaging studies and laboratory data noted within this document. For fifty percent of this time, I was interacting with the patient at the bedside or coordinating care with the care team. For the remainder of the time I was immediately available to the patient in the hospital unit. Job ID: [id number] [id number]
--- NOTE | 2018-10-25 22:10 | CON ---
DATE OF CONSULTATION: 10/25/2018 CHIEF COMPLAINT: Confusion. PRIMARY CARE PHYSICIAN: [facility]. HISTORY OF PRESENT ILLNESS: The patient is a 78-year-old woman, who underwent a left carotid endarterectomy in 2010. She has hypertension and peripheral vascular disease. Apparently, she has been in declining health over the last several months. Her family had seen her on Sunday afternoon and then yesterday, , about noon time, when they checked on her, they found her on the floor. She was quite confused, and she was brought to the hospital. Apparently, her medications had not been taken and she was found to be markedly hypertensive. Her mental status is improved as her blood pressure has come under better control, but she remained somewhat confused. PAST MEDICAL HISTORY: As above. HOME MEDICATIONS: Listed as; 1. Tambocor. 2. Iron. 3. Diltiazem. 4. Plavix. 5. P.r.n. Xanax. 6. Protonix. 7. P.r.n. hydrocodone. ALLERGIES: SHE HAS NO KNOWN MEDICAL ALLERGIES. SOCIAL HISTORY: She quit smoking in the last few years. Both of her parents live to advanced age, father dying at age 77 and mother at age 81. Her father had a heart attack. REVIEW OF SYSTEMS: Negative for any eye, speech, facial, or extremity symptoms consistent with TIAs, although admittedly the patient's history is not particularly reliable. PHYSICAL EXAMINATION: GENERAL: She seems lucid and alert, but some of her conversation is a bit nonsensical, though fluent. VITAL SIGNS: Her heart rate is 100, her blood pressure is 144/86. T-max has been 97.6. NECK: She has no JVD. She has bilateral carotid bruits. LUNGS: She has clear breath sounds. HEART: Regular rate and rhythm. ABDOMEN: She is obese. NEUROLOGIC: She has considerable difficulty in cooperating with exam, but cranial nerves 2 through 12 and extremity strength seems grossly normal. LABORATORY AND DIAGNOSTIC DATA: Her hemoglobin was 14.3, white count 9.1, platelets 214,000. Potassium is 3.0, glucose 131. TSH was 0.6411. Her head CT showed no acute abnormality. CTA of her carotids was reportedly showing an 80% stenosis of the proximal right ICA and mild stenosis of the left ICA. On my review, she has extensive calcific plaquing and some tortuosity making it very difficult to assess the luminal compromise on the right side and I am actually more impressed by compromise on the left with stenosis probably on the order of 60% or 70%. IMPRESSION AND RECOMMENDATIONS: As best I can tell her carotids are asymptomatic, find it somewhat difficult to assess the degree of stenosis on the right because of the extent of the calcific plaquing in any event, it is far more pressing at this point to get her hypertensive urgency (in the emergency room, heart rates were in 80s to 90s, blood pressures were 216 to 260 over 92 to 130) under adequate control. Certainly, her blood pressure is better now, but any further workup let alone intervention on her carotids can be deferred until she is more stable. Job ID: [id number]
[2018-10-26] MEDS: Lactated Ringer's 1,000 ML IV SCH (02:27)
--- NOTE | 2018-10-26 07:02 | PDOC.FM ---
- Subjective Subjective: Seen at bedside this morning. Resting comfortably, no complaints. No acute events over night. Per nursing patient's mental status waxes and wains. - Objective MAR Reviewed: Yes Vital Signs & Weight: Vital Signs (12 hours) Temp Pulse Ox 10/26/18 04:00 98.4 F 10/26/18 00:00 98.2 F 10/25/18 20:00 98.4 F 97 Weight Weight 103.2 kg Most Recent Monitor Data Heart Rate from ECG 92 NIBP 107/85 NIBP BP-Mean 92 Respiration from ECG 22 SpO2 96 I&O: 10/24/18 10/25/18 10/26/18 06:59 06:59 06:59 Intake Total 1426 2484 Output Total 200 2 Balance 1226 2482 Result Diagrams: 10/26/18 06:53 10/26/18 06:53 Phys Exam - Physical Examination Constitutional: NAD HEENT: moist MMs Neck: no nodes Respiratory: clear to auscultation bilateral 3/6 systolic murmur, radiates to carotids Gastrointestinal: soft, non-tender, no distention Musculoskeletal: no edema Neurological: non-focal, normal sensation, moves all 4 limbs Deviation from normal: Alert and oriented at times. Has periods of normal conversation followed by nonsensical statements. Skin: no rash Dx/Plan (1) Hypertensive emergency Code(s): I16.1 - HYPERTENSIVE EMERGENCY Status: Acute (2) Hypertensive encephalopathy Code(s): I67.4 - HYPERTENSIVE ENCEPHALOPATHY Status: Resolved (3) Systolic murmur Code(s): R01.1 - CARDIAC MURMUR, UNSPECIFIED Status: Acute (4) Atrial fibrillation status post cardioversion Code(s): I48.91 - UNSPECIFIED ATRIAL FIBRILLATION Status: Chronic (5) CKD (chronic kidney disease) stage 2, GFR 60-89 ml/min Code(s): N18.2 - CHRONIC KIDNEY DISEASE, STAGE 2 (MILD) Status: Chronic (6) HTN (hypertension) Code(s): I10 - ESSENTIAL (PRIMARY) HYPERTENSION Status: Chronic (7) CAD (coronary artery disease) Code(s): I25.10 - ATHSCL HEART DISEASE OF [place] CORONARY ARTERY W/O ANG PCTRS Status: Chronic Qualifiers: Coronary Disease-Associated Artery/Lesion type: [place] artery [place] vs. transplanted heart: [place] heart Associated angina: without angina Qualified Code(s): I25.10 - Atherosclerotic heart disease of [place] coronary artery without angina pectoris (8) Hypokalemia Code(s): E87.6 - HYPOKALEMIA Status: Resolved (9) Carotid stenosis, right Code(s): I65.21 - OCCLUSION AND STENOSIS OF RIGHT CAROTID ARTERY Status: Chronic (10) Dementia Code(s): F03.90 - UNSPECIFIED DEMENTIA WITHOUT BEHAVIORAL DISTURBANCE Status: Suspected - Plan Plan: 1. Hypertensive Emergency - off of drip and on PO meds. Patient was apparently had home BP meds stopped in Mar, however it would appear she will need to be re started. - BP varies from 110-190 systolic and is typically in the 160-170 systolic range. 2. Hypokalemia, resolved 3. New systolic murmur - echo pending 4. Carotid stenosis - CTA finds R ICA with 80% stenosis. - CV surg has seen pt and will follow up outpatient 5. Dementia, suspected - it would seem unlikely that patients mental status is related to blood pressure and more likely that she has a baseline dementia which is more obvious in this setting. - MRI pending to rule out CVA Dispo: patient is currently stable and improving. Move to tele today. Likely ready to dc home tomorrow. Addendum - Attending - Attending Attestation Date/Time: 10/26/18 8390 I personally evaluated the patient and discussed the management with Dr. Haley I agree with the History, Examination, Assessment and Plan documented above with any addition or exceptions noted below. Patient with acute delirium this am patient is oriented 0/3 this am for MRI today suspect underlying Dementia with associated acute delirium. Consider benefit from placement in NH.
[2018-10-26 07:20] LABS: #Eosinphils 0.1 thou/uL (0.0-0.7); #Lymphocytes 1.8 thou/uL (1.20-3.40); #Monocytes 1.2 thou/uL (0.11-0.59); #Neutrophils 5.9 thou/uL (1.40-6.50); %Basophils 0.3 % (0.0-1.0); %Eosinophils 0.6 % (0.0-10.0); %Lymphocytes 19.7 % (21.0-51.0); %Monocytes 13.1 % (0.0-10.0); %Neutrophils 66.3 % (42.0-75.0); Hemoglobin 13.6 g/dL (12.0-16.0); Mean Corpuscular HGB CONC 32.2 g/dL (32.0-36.0); Mean Corpuscular Hemoglobin 29.8 pg (27.0-31.0); Mean Corpuscular Volume 92.7 fL (78.0-98.0); Mean Platelet Volume 10.3 fL (7.4-10.4); Platelet Count 186 thou/uL (130-400); RBC Distribution Width 13.9 % (11.5-14.5); Red Blood Cell (RBC) Count 4.56 mill/uL (4.20-5.40)
[2018-10-26 07:41] LABS: Anion Gap 13 mmol/L (10-20); BUN (Urea Nitrogen) 11 mg/dL (9.8-20.1); Calc. Creatinine Clearance 102 mL/min (70-130); Calcium 9.1 mg/dL (7.8-10.44); Carbon Dioxide 25 mmol/L (23-31); Chloride 102 mmol/L (98-107); Estimated GFR-MDRD 75; Glucose 110 mg/dL (83-110); Potassium 3.8 mmol/L (3.5-5.1); Sodium 136 mmol/L (136-145)
[2018-10-26] MEDS: Lisinopril 10 MG TAB PO SCH (09:07)
[2018-10-26] MEDS: Enoxaparin Sodium 40 MG/0.4 ML SYRINGE SC SCH (09:07)
[2018-10-26] MEDS: Flecainide 50 MG TAB PO SCH ×2 (09:07→21:35)
[2018-10-26] MEDS: Aspirin Chewable 81 MG TAB PO SCH (09:08)
[2018-10-26] MEDS: Ferrous Sulfate 325 MG TAB PO SCH ×2 (09:08→16:53)
[2018-10-26] MEDS: Oxybutynin 5 MG TAB PO SCH ×2 (09:08→21:35)
[2018-10-26] MEDS: Citalopram 20 MG TAB PO SCH (09:08)
--- NOTE | 2018-10-26 10:08 | PRG ---
DATE OF SERVICE: 10/26/2018 SERVICE: Pulmonary Medicine. INTERVAL HISTORY: The patient really had an unremarkable evening. Denies any current chest pain, shortness of breath, fevers, or chills. Her blood pressures are going up a little bit again this morning, but she just got her a.m. blood pressure medications. She denies any current fevers or chills. There has been no interval change to her condition. PHYSICAL EXAMINATION: VITAL SIGNS: Afebrile, pulse 96, blood pressure 206/104, respirations 20, and saturation 93% on room air. GENERAL: The patient is awake and alert, in no apparent distress. LUNGS: Decent air entry without any prolonged expiratory phase or wheezing present. HEART: Normal rate. Regular. ABDOMEN: Soft, nontender, and nondistended. Bowel sounds are positive. MUSCULOSKELETAL: No cyanosis or clubbing. No pitting in the bilateral lower extremities. NEUROLOGIC: Grossly nonfocal. LABORATORY DATA: CBC is grossly unremarkable. Basic metabolic profile is also unremarkable. Urinalysis is negative. Urine drug screen is positive for opiates and benzodiazepines. ASSESSMENT: 1. Hypertensive emergency, improving. 2. Dehydration, improved. 3. Metabolic encephalopathy, likely secondary to overuse of home prescription medications. 4. Dementia, suspected. DISCUSSION AND PLAN: She remained stable for transition out of the ICU to the stroke unit. We will continue to give her p.r.n. blood pressure medications if her systolics go above 180. When she arrives on the floor, she will have no further requirements for inpatient Pulmonary/Critical Care opinion, and I will sign off. Primary Service is planning on an MRI, which I think is perfectly reasonable. Job ID: [id number]
[2018-10-26] MEDS: Labetalol HCl 100 MG/20 ML VIAL SLOW IVP PRN (15:18)
--- NOTE | 2018-10-26 15:59 | MRI ---
MRI OF BRAIN WITHOUT CONTRAST: 10/26/18 INDICATIONS: TIA. FINDINGS: Motion artifact degrades all sequences. There is cortical atrophy. Moderate chronic ischemic white matter changes. No evidence of restricted diffusion. No mass or edema. IMPRESSION: There are chronic ischemic white matter changes. No acute infarct identified. POS: OFF
--- NOTE | 2018-10-27 07:23 | PDOC.FM ---
- Subjective Subjective: Seen at bedside this morning in no acute distress. Resting comfortably. No new complaints. No concerns from nursing. - Objective MAR Reviewed: Yes Vital Signs & Weight: Vital Signs (12 hours) Temp Pulse Ox 10/27/18 04:00 98.0 F 10/26/18 20:00 98.4 F 98 Weight Weight 96.6 kg Most Recent Monitor Data Heart Rate from ECG 66 NIBP 180/66 NIBP BP-Mean 104 Respiration from ECG 20 SpO2 94 I&O: 10/26/18 10/27/18 10/28/18 06:59 06:59 06:59 Intake Total 2484 870 Output Total 2 5 Balance 2482 865 Result Diagrams: 10/26/18 06:53 10/26/18 06:53 Phys Exam - Physical Examination Constitutional: NAD HEENT: moist MMs Neck: no JVD Respiratory: clear to auscultation bilateral 3/6 systolic murmur Gastrointestinal: soft, non-tender, no distention Musculoskeletal: no edema Neurological: normal sensation, moves all 4 limbs Deviation from normal: A&O x2. Wax and waining orientation Skin: no rash Dx/Plan (1) Hypertensive emergency Code(s): I16.1 - HYPERTENSIVE EMERGENCY Status: Acute (2) Hypertensive encephalopathy Code(s): I67.4 - HYPERTENSIVE ENCEPHALOPATHY Status: Resolved (3) Systolic murmur Code(s): R01.1 - CARDIAC MURMUR, UNSPECIFIED Status: Acute (4) Atrial fibrillation status post cardioversion Code(s): I48.91 - UNSPECIFIED ATRIAL FIBRILLATION Status: Chronic (5) CKD (chronic kidney disease) stage 2, GFR 60-89 ml/min Code(s): N18.2 - CHRONIC KIDNEY DISEASE, STAGE 2 (MILD) Status: Chronic (6) HTN (hypertension) Code(s): I10 - ESSENTIAL (PRIMARY) HYPERTENSION Status: Chronic (7) CAD (coronary artery disease) Code(s): I25.10 - ATHSCL HEART DISEASE OF [place] CORONARY ARTERY W/O ANG PCTRS Status: Chronic Qualifiers: Coronary Disease-Associated Artery/Lesion type: [place] artery [place] vs. transplanted heart: [place] heart Associated angina: without angina Qualified Code(s): I25.10 - Atherosclerotic heart disease of [place] coronary artery without angina pectoris (8) Hypokalemia Code(s): E87.6 - HYPOKALEMIA Status: Resolved (9) Carotid stenosis, right Code(s): I65.21 - OCCLUSION AND STENOSIS OF RIGHT CAROTID ARTERY Status: Chronic (10) Dementia Code(s): F03.90 - UNSPECIFIED DEMENTIA WITHOUT BEHAVIORAL DISTURBANCE Status: Suspected - Plan Plan: 1. Hypertensive Emergency - off of drip and on PO meds. BP still quite variable. Will add HCTZ 2. Hypokalemia, resolved 3. New systolic murmur - echo was of poor quality. Did show thickening of aortic valve 4. Carotid stenosis - CTA finds R ICA with 80% stenosis. - CV surg has seen pt and will follow up outpatient 5. Dementia, suspected - it would seem unlikely that patients mental status is related to blood pressure and more likely that she has a baseline dementia which is more obvious in this setting. - MRI shows chronic changes, nothing acute Dispo: patient is currently stable and improving. Move to tele today. Likely ready to dc today Addendum - Attending - Attending Attestation Date/Time: 10/27/18 3609 I personally evaluated the patient and discussed the management with Dr. Haley I agree with the History, Examination, Assessment and Plan documented above with any addition or exceptions noted below. Patient oriented to person and place this AM candid discussion she would benefit from at least rehab planning for continued BP observation and assistance with ADLs. Patient at present not endorsing recommendation not to return to home will need to discuss further with CM and family.
[2018-10-27] MEDS: Labetalol HCl 100 MG/20 ML VIAL SLOW IVP PRN ×2 (08:19→15:06)
[2018-10-27] MEDS: Lisinopril 10 MG TAB PO SCH (08:52)
[2018-10-27] MEDS: Hydrochlorothiazide 25 MG TAB PO SCH (08:53)
[2018-10-27] MEDS: Ferrous Sulfate 325 MG TAB PO SCH ×2 (08:53→18:18)
[2018-10-27] MEDS: Aspirin Chewable 81 MG TAB PO SCH (08:54)
[2018-10-27] MEDS: Citalopram 20 MG TAB PO SCH (08:54)
[2018-10-27] MEDS: Enoxaparin Sodium 40 MG/0.4 ML SYRINGE SC SCH (08:56)
[2018-10-27] MEDS: Oxybutynin 5 MG TAB PO SCH ×2 (08:56→21:03)
--- NOTE | 2018-10-27 10:02 | PRG ---
DATE OF SERVICE: 10/27/2018 SERVICE: Pulmonary Medicine. INTERVAL HISTORY: The patient is doing really well from respiratory standpoint. She remains on room air. Denies any current chest pain, fevers, or chills. Otherwise, there has been no change to her condition. PHYSICAL EXAMINATION: VITAL SIGNS: Afebrile. Pulse 66, blood pressure 180/66, respirations 20, saturation 98% on room air. GENERAL: The patient is awake and alert, in no apparent distress. LUNGS: Decent air entry. There are no crackles, wheezing, or rhonchi appreciated. HEART: Normal rate and regular. ABDOMEN: Soft, nontender, nondistended. Bowel sounds are positive. MUSCULOSKELETAL: No cyanosis or clubbing. No pitting in the bilateral lower extremities. NEUROLOGIC: Grossly nonfocal. IMAGIN. MRI of the brain demonstrates chronic ischemic changes with no acute infarction identified. 2. Echocardiogram demonstrates normal ejection fraction. Technically limited exam. ASSESSMENT: 1. Hypertensive emergency, improving. 2. Dehydration, improving. 3. Metabolic encephalopathy, likely secondary to overuse of prescription medications. 4. Dementia, suspected. DISCUSSION AND PLAN: The patient remains stable for transition out of the ICU to the Telemetry unit. Pulmonary/Critical Care will continue to follow in this location, but when she arrives on the floor, I will sign off. Please call with additional questions or concerns through time. Job ID: [id number]
[2018-10-27] MEDS: Flecainide 50 MG TAB PO SCH ×2 (10:07→21:03)
[2018-10-27] MEDS: Lorazepam 2 MG/ML VIAL SLOW IVP PRN ×2 (21:04→23:15)
--- NOTE | 2018-10-28 06:34 | PDOC.FM ---
- Subjective Subjective: Overall patient has remained stable with no significant changes in status. Over night patient appeared to have worsening confusion which resolved after getting ativan. Otherwise, no new symptoms or concerns. - Objective MAR Reviewed: Yes Vital Signs & Weight: Vital Signs (12 hours) Temp Pulse Ox 10/28/18 04:00 98 F 10/28/18 00:00 98.6 F 10/27/18 20:00 98.1 F 96 Weight Weight 101.6 kg Most Recent Monitor Data Heart Rate from ECG 82 NIBP 154/65 NIBP BP-Mean 94 Respiration from ECG 20 SpO2 92 I&O: 10/26/18 10/27/18 10/28/18 06:59 06:59 06:59 Intake Total 2484 870 670 Output Total 2 5 801 Balance 2482 865 -131 Result Diagrams: 10/26/18 06:53 10/26/18 06:53 Phys Exam - Physical Examination Constitutional: NAD HEENT: moist MMs Neck: no JVD Respiratory: clear to auscultation bilateral systolic murmur Gastrointestinal: soft, non-tender, no distention Musculoskeletal: no edema Neurological: moves all 4 limbs Deviation from normal: Varies between oriented with normal converstaion to total confusion Skin: no rash Dx/Plan (1) Hypertensive emergency Code(s): I16.1 - HYPERTENSIVE EMERGENCY Status: Resolved (2) Hypertensive encephalopathy Code(s): I67.4 - HYPERTENSIVE ENCEPHALOPATHY Status: Resolved (3) Systolic murmur Code(s): R01.1 - CARDIAC MURMUR, UNSPECIFIED Status: Acute (4) Atrial fibrillation status post cardioversion Code(s): I48.91 - UNSPECIFIED ATRIAL FIBRILLATION Status: Chronic (5) CKD (chronic kidney disease) stage 2, GFR 60-89 ml/min Code(s): N18.2 - CHRONIC KIDNEY DISEASE, STAGE 2 (MILD) Status: Chronic (6) HTN (hypertension) Code(s): I10 - ESSENTIAL (PRIMARY) HYPERTENSION Status: Chronic (7) CAD (coronary artery disease) Code(s): I25.10 - ATHSCL HEART DISEASE OF [place] CORONARY ARTERY W/O ANG PCTRS Status: Chronic Qualifiers: Coronary Disease-Associated Artery/Lesion type: [place] artery [place] vs. transplanted heart: [place] heart Associated angina: without angina Qualified Code(s): I25.10 - Atherosclerotic heart disease of [place] coronary artery without angina pectoris (8) Hypokalemia Code(s): E87.6 - HYPOKALEMIA Status: Resolved (9) Carotid stenosis, right Code(s): I65.21 - OCCLUSION AND STENOSIS OF RIGHT CAROTID ARTERY Status: Chronic (10) Dementia Code(s): F03.90 - UNSPECIFIED DEMENTIA WITHOUT BEHAVIORAL DISTURBANCE Status: Suspected - Plan Plan: 1. Hypertensive Emergency - End organ signs resolved and pt no longer needing drip - BP has been difficult to control with PO meds and she got 1 dose of IV labetalol yesterday - will need further outpatient monitoring and titration of meds 2. Hypokalemia, resolved 3. New systolic murmur - echo was of poor quality. Did show thickening of aortic valve 4. Carotid stenosis - CTA finds R ICA with 80% stenosis, fu with cv surg outpatient 5. Dementia, suspected - likely chronic dementia with hospital related delirium - MRI shows chronic changes, nothing acute - patient would likely be safe in an assisted living setting 6. Deconditioning - patient would likely benefit from rehab, eval consult pending Dispo: patient is currently stable and improving. Move to tele when bed is available. dc pending placement Addendum - Attending - Attending Attestation Date/Time: 10/29/18 8451 I personally evaluated the patient and discussed the management with Dr. Haley I agree with the History, Examination, Assessment and Plan documented above with any addition or exceptions noted below - Patient without complaints. Oriented x 2. Sitting up in neuro chair. Afebrile VSS. A/P: 1) HTN emergency- Continue to titrate meds. Stable to transfer to tele. 2) AMS- waxes and wanes- suspect some ing. May need to give small dose of haldol or risperidol.
[2018-10-28] MEDS: Hydrochlorothiazide 25 MG TAB PO SCH (08:49)
[2018-10-28] MEDS: Lisinopril 10 MG TAB PO SCH (08:49)
[2018-10-28] MEDS: Ferrous Sulfate 325 MG TAB PO SCH ×2 (08:50→16:58)
[2018-10-28] MEDS: Aspirin Chewable 81 MG TAB PO SCH (08:50)
[2018-10-28] MEDS: Citalopram 20 MG TAB PO SCH (08:50)
[2018-10-28] MEDS: Flecainide 50 MG TAB PO SCH ×2 (08:56→21:12)
[2018-10-28] MEDS: Enoxaparin Sodium 40 MG/0.4 ML SYRINGE SC SCH (08:56)
[2018-10-28] MEDS: Oxybutynin 5 MG TAB PO SCH ×2 (08:57→21:12)
--- NOTE | 2018-10-28 14:20 | CT ---
CTA of the head with IV contrast and 3-D reformatted imaging. CTA of the neck with IV contrast and 3-D reformatted imaging. INDICATION: History of fall COMPARISON: Noncontrast CT the brain dated October 24, 2018 FINDINGS: CTA of the head with and without contrast: No acute infarct, hemorrhage or hydrocephalus is present. The septum pellucidum and third ventricle a re midline. No hemodynamically significant stenosis, occlusion or aneurysmal formation is demonstrated. There is mild chronic small vessel white matter ischemic change. There are [place] lense s have been replaced bilaterally. There is a origin to the right [employer]. CTA of the neck with contrast: There is 80% luminal caliber narrowing involving the proximal right ICA, just distal to the bifurcati on. There is mild luminal caliber narrowing involving the proximal to mid left ICA. There are surgical clips near this region and may reflect sequela of prior carotid endarterectomy. There is mil d narrowing involving the origin of the left vertebral artery. The right vertebral artery appears patent throughout its course. There is emphysematous change involving lung apices. There is a calcified granuloma in the right uppe r lobe. The visualized prevertebral and paravertebral soft tissues are normal appearing. IMPRESSION: 1. No hemodynamically significant stenosis, occlusion or aneurysmal formation seen involving the head . 2. 80% luminal caliber narrowing involving the proximal right ICA, just distal to the carotid bulb. 3. Mild luminal caliber narrowing involving the proximal mid left ICA with adjacent surgical clips reardon spicious for a changes of prior endarterectomy. 4. Mild narrowing involving the origin of the left vertebral artery. 5. Emphysema Transcribed Date/Time: 10/28/2018 2:20 PM
[2018-10-28] MEDS: Acetaminophen 325 MG TAB PO PRN (15:07)
--- NOTE | 2018-10-28 16:30 | PRG ---
DATE OF SERVICE: 10/28/2018 SERVICE: Pulmonary Medicine. INTERVAL HISTORY: The patient is doing outstanding from respiratory standpoint. She is breathing comfortably. Blood pressure is under reasonable control at this point. She has no neurologic changes. Otherwise, she is in her usual state of health. We watched her sleeping at bedside and she has some witnessed apneic episodes. PHYSICAL EXAMINATION: VITAL SIGNS: Afebrile, pulse 83, blood pressure 156/84, respirations 20, and saturations 100% on room air. GENERAL: The patient is awake and alert, in no apparent distress. LUNGS: Excellent air entry with no prolonged expiratory phase. There is no wheezing or crackles. HEART: Normal rate, regular. ABDOMEN: Soft, nontender, and nondistended. Bowel sounds are positive. MUSCULOSKELETAL: No cyanosis or clubbing. No pitting in the bilateral lower extremities. NEUROLOGIC: Grossly nonfocal. ASSESSMENT: 1. Hypertensive emergency, resolved. 2. Dehydration, resolved. 3. Metabolic encephalopathy, likely secondary to overuse of prescription medications, resolved. 4. Dementia, suspected. 5. Obstructive sleep apnea, witnessed at bedside. DISCUSSION AND PLAN: The patient is doing fine from respiratory standpoint. At this point, she is stable for transition out of the hospital or to the telemetry unit. Pulmonary will continue to follow in this location, but when she leaves, she will have no further requirements from my opinion, and I will sign off. Please call with additional questions or concerns through time. Job ID: [id number]
--- NOTE | 2018-10-29 07:02 | PDOC.FM ---
- Subjective Subjective: Seen at bedside this morning sleeping comfortably. Per sitter, she did not sleep much over night. She seems to be oriented today and can recall yesterday' s events. No acute events over night. No new complaints - Objective MAR Reviewed: Yes Vital Signs & Weight: Vital Signs (12 hours) Temp Pulse Resp BP Pulse Ox 10/29/18 04:14 98.5 F 84 18 179/69 H 94 L 10/29/18 00:00 98.0 F 88 18 194/58 H 96 10/28/18 20:00 98.4 F 96 Weight Weight 101.6 kg Most Recent Monitor Data Heart Rate from ECG 71 NIBP 168/69 NIBP BP-Mean 102 Respiration from ECG 15 SpO2 96 I&O: 10/28/18 10/29/18 10/30/18 06:59 06:59 06:59 Intake Total 670 690 Output Total 801 1300 Balance -131 -610 Result Diagrams: 10/26/18 06:53 10/26/18 06:53 Phys Exam - Physical Examination HEENT: moist MMs Neck: no JVD Respiratory: clear to auscultation bilateral 2/6 systolic murmur Gastrointestinal: soft, no distention, positive bowel sounds Musculoskeletal: no edema Neurological: moves all 4 limbs Psychiatric: normal affect, A&O x 3 Skin: no rash Dx/Plan (1) Hypertensive emergency Code(s): I16.1 - HYPERTENSIVE EMERGENCY Status: Resolved (2) Hypertensive encephalopathy Code(s): I67.4 - HYPERTENSIVE ENCEPHALOPATHY Status: Resolved (3) Systolic murmur Code(s): R01.1 - CARDIAC MURMUR, UNSPECIFIED Status: Acute (4) Atrial fibrillation status post cardioversion Code(s): I48.91 - UNSPECIFIED ATRIAL FIBRILLATION Status: Chronic (5) CKD (chronic kidney disease) stage 2, GFR 60-89 ml/min Code(s): N18.2 - CHRONIC KIDNEY DISEASE, STAGE 2 (MILD) Status: Chronic (6) HTN (hypertension) Code(s): I10 - ESSENTIAL (PRIMARY) HYPERTENSION Status: Chronic (7) CAD (coronary artery disease) Code(s): I25.10 - ATHSCL HEART DISEASE OF [place] CORONARY ARTERY W/O ANG PCTRS Status: Chronic Qualifiers: Coronary Disease-Associated Artery/Lesion type: [place] artery [place] vs. transplanted heart: [place] heart Associated angina: without angina Qualified Code(s): I25.10 - Atherosclerotic heart disease of [place] coronary artery without angina pectoris (8) Hypokalemia Code(s): E87.6 - HYPOKALEMIA Status: Resolved (9) Carotid stenosis, right Code(s): I65.21 - OCCLUSION AND STENOSIS OF RIGHT CAROTID ARTERY Status: Chronic (10) Dementia Code(s): F03.90 - UNSPECIFIED DEMENTIA WITHOUT BEHAVIORAL DISTURBANCE Status: Suspected - Plan Plan: 1. Hypertensive Emergency, resolved - No PRNs needed yesterday. 2. HTN - will need outpatient titration of meds. Pressure continues to be elevated. Increase lisinopril today 3. Hypokalemia, resolved 4. New systolic murmur - echo was of poor quality. Did show thickening of aortic valve. May consider repeating scan outpatient 5. Carotid stenosis - CTA finds R ICA with 80% stenosis, fu with cv surg outpatient 6. Dementia, suspected - likely chronic dementia with hospital related delirium - MRI shows chronic changes, nothing acute - patient would likely be safe in an assisted living setting 7. Deconditioning - placement pending 8. Hx of afib - continue home meds Dispo: patient is currently stable and improving. Move to tele when bed is available. dc pending placement Addendum - Attending - Attending Attestation Date/Time: 10/29/18 2915 I personally evaluated the patient and discussed the management with Dr. Haley I agree with the History, Examination, Assessment and Plan documented above with any addition or exceptions noted below- Patient denies any complaints. Afebrile VSS A/P: 1) HTN emergency - BP labile; continue to adjust medications. 2) AMS - waxes and wanes- not sleeping at night; suspect some element of sundowning. Consider haldol/geodon type agent to help with sleep and reorientation. 3) Dementia - previously on medication uncertain type; consider starting donazepil. 4) Deconditioning - awaiting rehab consult
[2018-10-29] MEDS: Enoxaparin Sodium 40 MG/0.4 ML SYRINGE SC SCH (08:24)
[2018-10-29] MEDS: Oxybutynin 5 MG TAB PO SCH ×2 (08:25→22:08)
[2018-10-29] MEDS: Aspirin Chewable 81 MG TAB PO SCH (08:26)
[2018-10-29] MEDS: Lisinopril 20 MG TAB PO SCH (08:26)
[2018-10-29] MEDS: Hydrochlorothiazide 25 MG TAB PO SCH (08:26)
[2018-10-29] MEDS: Flecainide 50 MG TAB PO SCH ×2 (08:27→22:08)
[2018-10-29] MEDS: Ferrous Sulfate 325 MG TAB PO SCH ×2 (08:27→16:52)
[2018-10-29] MEDS: Citalopram 20 MG TAB PO SCH (08:27)
[2018-10-29] MEDS: Acetaminophen 325 MG TAB PO PRN (16:52)
[2018-10-29] MEDS: Donepezil HCl 5 MG TAB PO SCH (22:08)
[2018-10-29] MEDS: Lorazepam 1 MG TAB PO SCH (22:09)
[2018-10-30] MEDS: Labetalol HCl 100 MG/20 ML VIAL SLOW IVP PRN (03:54)
--- NOTE | 2018-10-30 07:09 | PDOC.FM ---
- Subjective Subjective: Seen at bedside this morning resting comfortably. Per nursing she slept well last night. No new complaints. - Objective MAR Reviewed: Yes Vital Signs & Weight: Vital Signs (12 hours) Temp Pulse Resp BP BP Pulse Ox 10/30/18 04:07 72 128/57 L 10/30/18 03:54 70 207/91 H 10/30/18 03:52 98.6 F 70 20 207/91 H 93 L 10/30/18 00:00 98.9 F 83 19 185/55 H 94 L 10/29/18 20:00 98.6 F 88 19 180/69 H 96 Weight Weight 101.741 kg Most Recent Monitor Data Heart Rate from ECG 71 NIBP 168/69 NIBP BP-Mean 102 Respiration from ECG 15 SpO2 96 I&O: 10/29/18 10/30/18 10/31/18 06:59 06:59 06:59 Intake Total 690 600 Output Total 1300 480 Balance -610 120 Result Diagrams: 10/26/18 06:53 10/26/18 06:53 Phys Exam - Physical Examination Constitutional: NAD HEENT: moist MMs Neck: no JVD Respiratory: clear to auscultation bilateral systolic murmur, unchanged Gastrointestinal: soft, non-tender, no distention Musculoskeletal: no edema Neurological: non-focal Deviation from normal: waxes and wains. At times A&O x3. At times she hallucinates Skin: no rash Dx/Plan (1) Hypertensive emergency Code(s): I16.1 - HYPERTENSIVE EMERGENCY Status: Resolved (2) Hypertensive encephalopathy Code(s): I67.4 - HYPERTENSIVE ENCEPHALOPATHY Status: Resolved (3) Systolic murmur Code(s): R01.1 - CARDIAC MURMUR, UNSPECIFIED Status: Acute (4) Atrial fibrillation status post cardioversion Code(s): I48.91 - UNSPECIFIED ATRIAL FIBRILLATION Status: Chronic (5) CKD (chronic kidney disease) stage 2, GFR 60-89 ml/min Code(s): N18.2 - CHRONIC KIDNEY DISEASE, STAGE 2 (MILD) Status: Chronic (6) HTN (hypertension) Code(s): I10 - ESSENTIAL (PRIMARY) HYPERTENSION Status: Chronic (7) CAD (coronary artery disease) Code(s): I25.10 - ATHSCL HEART DISEASE OF [place] CORONARY ARTERY W/O ANG PCTRS Status: Chronic Qualifiers: Coronary Disease-Associated Artery/Lesion type: [place] artery [place] vs. transplanted heart: [place] heart Associated angina: without angina Qualified Code(s): I25.10 - Atherosclerotic heart disease of [place] coronary artery without angina pectoris (8) Hypokalemia Code(s): E87.6 - HYPOKALEMIA Status: Resolved (9) Carotid stenosis, right Code(s): I65.21 - OCCLUSION AND STENOSIS OF RIGHT CAROTID ARTERY Status: Chronic (10) Dementia Code(s): F03.90 - UNSPECIFIED DEMENTIA WITHOUT BEHAVIORAL DISTURBANCE Status: Suspected - Plan Plan: 1. Hypertensive Emergency, resolved 2. HTN - pressure varies significantly between normal to greater than 180 systolic. - Monitor pressure and titrate in outpatient setting. 3. Hypokalemia, resolved 4. New systolic murmur - echo was of poor quality. Did show thickening of aortic valve. May consider repeating scan outpatient 5. Carotid stenosis - CTA finds R ICA with 80% stenosis, fu with cv surg outpatient 6. Dementia, suspected - started donepezil, will recheck EKG to monitor QTc - likely chronic dementia with hospital related delirium - MRI shows chronic changes, nothing acute - patient would likely be safe in an assisted living setting 7. Deconditioning - placement pending 8. Hx of afib - continue home meds Dispo: patient is currently stable. Ready for dc pending placement Addendum - Attending - Attending Attestation Date/Time: 10/31/18 1003 I personally evaluated the patient and discussed the management with Dr. Haley on 10/30/2018 I agree with the History, Examination, Assessment and Plan documented above with any addition or exceptions noted below- Pateint slept well. Much clearer this morning. Does not remember seeing me yesterday on rounds. Afebrile VSS A/P : 1) HTN emergency- BP still labile but improving. 2) AMS- improved with low dose seroquel. Continue current meds. 3) Deconditioning- patient has been living independently and bale to perform ADLs independently prior to hospitalization. Continue PT. Would benefit from rehab to return to independent living.
[2018-10-30] MEDS: Enoxaparin Sodium 40 MG/0.4 ML SYRINGE SC SCH (09:06)
[2018-10-30] MEDS: Hydrochlorothiazide 25 MG TAB PO SCH (09:06)
[2018-10-30] MEDS: Oxybutynin 5 MG TAB PO SCH ×2 (09:07→21:09)
[2018-10-30] MEDS: Flecainide 50 MG TAB PO SCH ×2 (09:07→21:09)
[2018-10-30] MEDS: Citalopram 20 MG TAB PO SCH (09:07)
[2018-10-30] MEDS: Ferrous Sulfate 325 MG TAB PO SCH ×2 (09:07→16:51)
[2018-10-30] MEDS: Aspirin Chewable 81 MG TAB PO SCH (09:08)
[2018-10-30] MEDS: Lisinopril 20 MG TAB PO SCH (09:09)
[2018-10-30] MEDS: Acetaminophen 325 MG TAB PO PRN (17:51)
[2018-10-30] MEDS ORDERED: HYDROcodone/Acetaminophen 10/325 mg Tablet PO PRN (18:21)
[2018-10-30] MEDS: Lorazepam 1 MG TAB PO SCH (21:09)
[2018-10-30] MEDS: Donepezil HCl 5 MG TAB PO SCH (21:09)
--- NOTE | 2018-10-31 06:36 | PDOC.FM ---
- Subjective Subjective: Seen at bedside this morning resting comfortably. Per nursing, no acute events over night. Patient slept all night without issue. No new complaints - Objective MAR Reviewed: Yes Vital Signs & Weight: Vital Signs (12 hours) Temp Pulse Resp BP Pulse Ox 10/31/18 03:53 98.0 F 75 19 137/60 94 L 10/31/18 00:00 98.5 F 79 19 105/79 97 10/30/18 20:00 99.4 F 75 18 130/54 L 94 L Weight Weight 96.887 kg Most Recent Monitor Data Heart Rate from ECG 71 NIBP 168/69 NIBP BP-Mean 102 Respiration from ECG 15 SpO2 96 I&O: 10/29/18 10/30/18 10/31/18 06:59 06:59 06:59 Intake Total 690 600 400 Output Total 1300 480 275 Balance -610 120 125 Result Diagrams: 10/26/18 06:53 10/26/18 06:53 Phys Exam - Physical Examination Constitutional: NAD HEENT: PERRLA Neck: no JVD Respiratory: clear to auscultation bilateral Cardiovascular: RRR 2/6 systolic murmur Gastrointestinal: soft, non-tender, no distention Musculoskeletal: no edema Neurological: moves all 4 limbs Deviation from normal: Waxes and wains. She is quite confused when she first wakes up. Improved mental status as the day goes on Skin: no rash Dx/Plan (1) Hypertensive emergency Code(s): I16.1 - HYPERTENSIVE EMERGENCY Status: Resolved (2) Hypertensive encephalopathy Code(s): I67.4 - HYPERTENSIVE ENCEPHALOPATHY Status: Resolved (3) Systolic murmur Code(s): R01.1 - CARDIAC MURMUR, UNSPECIFIED Status: Acute (4) Atrial fibrillation status post cardioversion Code(s): I48.91 - UNSPECIFIED ATRIAL FIBRILLATION Status: Chronic (5) CKD (chronic kidney disease) stage 2, GFR 60-89 ml/min Code(s): N18.2 - CHRONIC KIDNEY DISEASE, STAGE 2 (MILD) Status: Chronic (6) HTN (hypertension) Code(s): I10 - ESSENTIAL (PRIMARY) HYPERTENSION Status: Chronic (7) CAD (coronary artery disease) Code(s): I25.10 - ATHSCL HEART DISEASE OF [place] CORONARY ARTERY W/O ANG PCTRS Status: Chronic Qualifiers: Coronary Disease-Associated Artery/Lesion type: [place] artery [place] vs. transplanted heart: [place] heart Associated angina: without angina Qualified Code(s): I25.10 - Atherosclerotic heart disease of [place] coronary artery without angina pectoris (8) Hypokalemia Code(s): E87.6 - HYPOKALEMIA Status: Resolved (9) Carotid stenosis, right Code(s): I65.21 - OCCLUSION AND STENOSIS OF RIGHT CAROTID ARTERY Status: Chronic (10) Dementia Code(s): F03.90 - UNSPECIFIED DEMENTIA WITHOUT BEHAVIORAL DISTURBANCE Status: Suspected (11) Physical deconditioning Code(s): R53.81 - OTHER [place] Status: Acute - Plan Plan: 1. Hypertensive Emergency, resolved 2. HTN - better control over the past 24 hours - Monitor pressure and titrate in outpatient setting. 3. Hypokalemia, resolved 4. New systolic murmur - echo was of poor quality. Did show thickening of aortic valve. May consider repeating scan outpatient 5. Carotid stenosis - CTA finds R ICA with 80% stenosis, fu with cv surg outpatient 6. Dementia, suspected - continue donepezil. Normal QTc - likely chronic dementia with hospital related delirium - MRI shows chronic changes, nothing acute - patient would likely be safe in an assisted living setting 7. Deconditioning - Rehab placement was denied by insurance yesterday following doc to doc. Insurance doc states that severe deconditioning is not a reason for rehab placement. Will appeal decision today. 8. Hx of afib - continue home meds Dispo: patient is currently stable. Ready for dc pending placement Addendum - Attending - Attending Attestation Date/Time: 10/31/18 0903 I personally evaluated the patient and discussed the management with Dr. Haley. I agree with the History, Examination, Assessment and Plan documented above with any addition or exceptions noted below. Patient here with resolved hypertensive emergency and AMS. Her BP is now well controlled on current oral therapy. Her mentation is improved and less agitation and delirium since initiation of low dose Seroquel. Anticipate multifactorial nature in that her AMS is likely related to some underlying dementia, hospital delirium, HTN encephalopathy. She is resting comfortably and answers questions appropriately and pleasantly. Continue to monitor BP and work on placement. Patient apparently rejected for inpatient rehab by insurance company though she would certainly benefit from such therapy, and in her situation I feel SNF would be a step down in care compared to what she could receive at inpatient rehab.
[2018-10-31] MEDS: Ferrous Sulfate 325 MG TAB PO SCH ×2 (08:54→17:05)
[2018-10-31] MEDS: Aspirin Chewable 81 MG TAB PO SCH (08:54)
[2018-10-31] MEDS: Flecainide 50 MG TAB PO SCH ×2 (08:55→20:11)
[2018-10-31] MEDS: Citalopram 20 MG TAB PO SCH (08:55)
[2018-10-31] MEDS: Oxybutynin 5 MG TAB PO SCH ×2 (08:55→20:12)
[2018-10-31] MEDS: Hydrochlorothiazide 25 MG TAB PO SCH (08:55)
[2018-10-31] MEDS: Enoxaparin Sodium 40 MG/0.4 ML SYRINGE SC SCH (08:56)
[2018-10-31] MEDS: Lorazepam 1 MG TAB PO SCH (20:11)
[2018-10-31] MEDS: Donepezil HCl 5 MG TAB PO SCH (20:12)
[2018-10-31] MEDS: Lisinopril 20 MG TAB PO SCH (20:13)
[2018-11-01] MEDS: Labetalol HCl 100 MG/20 ML VIAL SLOW IVP PRN (04:48)
--- NOTE | 2018-11-01 07:03 | PDOC.FM ---
- Subjective Subjective: Patient doing well this morning, resting comfortably. She has no complaints and there are no new concerns from nursing. This morning she is alert and appropriately conversational. - Objective MAR Reviewed: Yes Vital Signs & Weight: Vital Signs (12 hours) Temp Pulse Resp BP BP BP Pulse Ox 11/01/18 05:56 75 145/76 H 11/01/18 04:48 85 189/67 H 11/01/18 04:15 97.7 F 85 16 189/67 H 92 L 10/31/18 23:58 98 F 79 16 130/62 97 10/31/18 20:13 150/56 H 10/31/18 20:00 99.2 F 79 16 150/56 H 92 L Weight Weight 96.388 kg Most Recent Monitor Data Heart Rate from ECG 71 NIBP 168/69 NIBP BP-Mean 102 Respiration from ECG 15 SpO2 96 I&O: 10/30/18 10/31/18 11/01/18 06:59 06:59 06:59 Intake Total 600 400 240 Output Total 480 275 525 Balance 120 125 -285 Result Diagrams: 10/26/18 06:53 10/26/18 06:53 Phys Exam - Physical Examination Constitutional: NAD HEENT: moist MMs Neck: no JVD Respiratory: clear to auscultation bilateral Cardiovascular: RRR 2/6 systolic murmur Gastrointestinal: soft, non-tender, no distention Musculoskeletal: no edema Neurological: non-focal, moves all 4 limbs Psychiatric: normal affect, A&O x 3 Skin: no rash Dx/Plan (1) Hypertensive emergency Code(s): I16.1 - HYPERTENSIVE EMERGENCY Status: Resolved (2) Hypertensive encephalopathy Code(s): I67.4 - HYPERTENSIVE ENCEPHALOPATHY Status: Resolved (3) Systolic murmur Code(s): R01.1 - CARDIAC MURMUR, UNSPECIFIED Status: Acute (4) Atrial fibrillation status post cardioversion Code(s): I48.91 - UNSPECIFIED ATRIAL FIBRILLATION Status: Chronic (5) CKD (chronic kidney disease) stage 2, GFR 60-89 ml/min Code(s): N18.2 - CHRONIC KIDNEY DISEASE, STAGE 2 (MILD) Status: Chronic (6) HTN (hypertension) Code(s): I10 - ESSENTIAL (PRIMARY) HYPERTENSION Status: Chronic (7) CAD (coronary artery disease) Code(s): I25.10 - ATHSCL HEART DISEASE OF [place] CORONARY ARTERY W/O ANG PCTRS Status: Chronic Qualifiers: Coronary Disease-Associated Artery/Lesion type: [place] artery [place] vs. transplanted heart: [place] heart Associated angina: without angina Qualified Code(s): I25.10 - Atherosclerotic heart disease of [place] coronary artery without angina pectoris (8) Hypokalemia Code(s): E87.6 - HYPOKALEMIA Status: Resolved (9) Carotid stenosis, right Code(s): I65.21 - OCCLUSION AND STENOSIS OF RIGHT CAROTID ARTERY Status: Chronic (10) Dementia Code(s): F03.90 - UNSPECIFIED DEMENTIA WITHOUT BEHAVIORAL DISTURBANCE Status: Suspected (11) Physical deconditioning Code(s): R53.81 - OTHER [place] Status: Acute - Plan Plan: 1. Hypertensive Emergency, resolved 2. HTN - better control over the past 24 hours, however she continues to have high pressure at night. - Monitor pressure and titrate in outpatient setting. 3. Hypokalemia, resolved 4. New systolic murmur - echo was of poor quality. Did show thickening of aortic valve. May consider repeating scan outpatient 5. Carotid stenosis - CTA finds R ICA with 80% stenosis, fu with cv surg outpatient 6. Dementia, suspected - Doing much better over the past 48 hours. Certainly a large amount of confusion early on was hospital related delirium. - continue donepezil and seroquel at night. - MRI shows chronic changes, nothing acute 7. Deconditioning - Rehab placement was denied by insurance following doc to doc. On attempt to appeal insurance informed case management that the decision would take up to 30 days. We determined that waiting in the hospital for a month would not be in the best interest of the patient and while inpatient rehab would be best, SNF would be better than continued care in the hospital. We are currently pursuing SNF placement for PT. Insurance doc states that severe deconditioning is not a reason for rehab placement. 8. Hx of afib - continue home meds Dispo: patient is currently stable. Ready for dc pending placement Addendum - Attending - Attending Attestation Date/Time: 11/01/18 8112 I personally evaluated the patient and discussed the management with Dr. Haley I agree with the History, Examination, Assessment and Plan documented above with any addition or exceptions noted below - Patient without complaints. Afebrile VSS A/P: 1) Malignant HTM- much netter control. continue to adjust meds as needed. 2) CKD- stable 3) Deconditioning - awaiting SNF placement.
[2018-11-01] MEDS: Hydrochlorothiazide 25 MG TAB PO SCH (08:08)
[2018-11-01] MEDS: Aspirin Chewable 81 MG TAB PO SCH (08:08)
[2018-11-01] MEDS: Citalopram 20 MG TAB PO SCH (08:08)
[2018-11-01] MEDS: Oxybutynin 5 MG TAB PO SCH ×2 (08:09→21:30)
[2018-11-01] MEDS: Ferrous Sulfate 325 MG TAB PO SCH ×2 (08:10→16:19)
[2018-11-01] MEDS: Flecainide 50 MG TAB PO SCH ×2 (08:11→21:30)
[2018-11-01] MEDS: Enoxaparin Sodium 40 MG/0.4 ML SYRINGE SC SCH (08:11)
[2018-11-01] MEDS: Lisinopril 20 MG TAB PO SCH (21:30)
[2018-11-01] MEDS: Donepezil HCl 5 MG TAB PO SCH (21:30)
[2018-11-01] MEDS: Lorazepam 1 MG TAB PO SCH (21:30)
--- NOTE | 2018-11-02 06:45 | PDOC.FM ---
- Subjective Subjective: NAEO. Patient alert and oriented x 4 on exam. Patient states she feels well this AM. Only complaint is some left upper maxillary pain. Denies any headache, blurred vision, chest pain, cough, congestion, ear pain/pressure, SOB, or N/V/ D. - Objective MAR Reviewed: Yes Vital Signs & Weight: Vital Signs (12 hours) Temp Pulse Resp BP BP Pulse Ox 11/02/18 04:00 98.1 F 86 16 157/78 H 93 L 11/02/18 00:00 98.4 F 76 16 124/77 95 11/01/18 21:30 135/48 L 11/01/18 20:30 93 L 11/01/18 19:26 98.1 F 76 16 135/48 L 93 L Weight Weight 95.765 kg Most Recent Monitor Data Heart Rate from ECG 71 NIBP 168/69 NIBP BP-Mean 102 Respiration from ECG 15 SpO2 96 I&O: 10/31/18 11/01/18 11/02/18 06:59 06:59 06:59 Intake Total 400 240 340 Output Total 275 525 450 Balance 125 -285 -110 Result Diagrams: 10/26/18 06:53 10/26/18 06:53 Phys Exam - Physical Examination Constitutional: NAD HEENT: moist MMs, sclera anicteric Neck: supple, full ROM Respiratory: no wheezing, no rales, no rhonchi, clear to auscultation bilateral Cardiovascular: RRR, no significant murmur Gastrointestinal: soft, non-tender Musculoskeletal: no edema, pulses present Neurological: non-focal, moves all 4 limbs Psychiatric: normal affect, A&O x 3 Skin: no rash, normal turgor Dx/Plan (1) Physical deconditioning Code(s): R53.81 - OTHER [place] Status: Acute (2) Dementia Code(s): F03.90 - UNSPECIFIED DEMENTIA WITHOUT BEHAVIORAL DISTURBANCE Status: Suspected (3) Hypertensive emergency Code(s): I16.1 - HYPERTENSIVE EMERGENCY Status: Resolved (4) Hypertensive encephalopathy Code(s): I67.4 - HYPERTENSIVE ENCEPHALOPATHY Status: Resolved (5) CAD (coronary artery disease) Code(s): I25.10 - ATHSCL HEART DISEASE OF [place] CORONARY ARTERY W/O ANG PCTRS Status: Chronic Qualifiers: Coronary Disease-Associated Artery/Lesion type: [place] artery [place] vs. transplanted heart: [place] heart Associated angina: without angina Qualified Code(s): I25.10 - Atherosclerotic heart disease of [place] coronary artery without angina pectoris (6) HTN (hypertension) Code(s): I10 - ESSENTIAL (PRIMARY) HYPERTENSION Status: Chronic (7) PVD (peripheral vascular disease) Code(s): I73.9 - PERIPHERAL VASCULAR DISEASE, UNSPECIFIED Status: Chronic (8) Paroxysmal A-fib Code(s): I48.0 - PAROXYSMAL ATRIAL FIBRILLATION Status: Chronic - Plan Plan: 1. Hypertensive Emergency, resolved 2. HTN - Much better control over the past 24 hours w/ max SBP of 157 this AM. - Will continue to monitor pressures and titrate PRN in outpatient setting. 3. Hypokalemia, resolved 4. New systolic murmur - echo was of poor quality. Did show thickening of aortic valve. May consider repeating scan as an outpatient. 5. Carotid stenosis - CTA finds R ICA with 80% stenosis, fu with cv surg as an outpatient 6. Dementia, suspected - Doing much better over the past 72 hours. A&Ox4 yesterday & today on exam. - Will continue donepezil and seroquel at night. - MRI shows only chronic changes, nothing acute. 7. Deconditioning - Patient has been clinically accepted to [facility] for [facility] and PT but will likely not be able to go until Sunday. Still pending insurance acceptance/approval. 8. Hx of afib - Will continue home meds Dispo: Patient remains stable. Ready for dc pending placement. Addendum - Attending - Attending Attestation Date/Time: 11/02/18 9420 I personally evaluated the patient and discussed the management with Dr. Bulter. I agree with the History, Examination, Assessment and Plan documented above with any addition or exceptions noted below. Pt states she is feeling better. She is waiting on placement.
[2018-11-02] MEDS: Citalopram 20 MG TAB PO SCH (08:09)
[2018-11-02] MEDS: Aspirin Chewable 81 MG TAB PO SCH (08:09)
[2018-11-02] MEDS: Ferrous Sulfate 325 MG TAB PO SCH ×2 (08:09→16:39)
[2018-11-02] MEDS: Flecainide 50 MG TAB PO SCH ×2 (08:09→20:26)
[2018-11-02] MEDS: Hydrochlorothiazide 25 MG TAB PO SCH (08:09)
[2018-11-02] MEDS: Oxybutynin 5 MG TAB PO SCH ×2 (08:09→20:26)
[2018-11-02] MEDS: Enoxaparin Sodium 40 MG/0.4 ML SYRINGE SC SCH (08:10)
[2018-11-02] MEDS: Acetaminophen 325 MG TAB PO PRN (13:14)
[2018-11-02] MEDS: Donepezil HCl 5 MG TAB PO SCH (20:25)
[2018-11-02] MEDS: Lorazepam 1 MG TAB PO SCH (20:26)
[2018-11-02] MEDS: Lisinopril 20 MG TAB PO SCH (20:26)
--- NOTE | 2018-11-03 06:12 | PDOC.FM ---
- Subjective Subjective: Patient reports feeling well this AM. Denies any N/V/D or constipation. Also denies any fever, chills, chest pain, SOB, or cough. - Objective MAR Reviewed: Yes Vital Signs & Weight: Vital Signs (12 hours) Temp Pulse Resp BP BP Pulse Ox 11/03/18 03:59 98.1 F 84 16 149/72 H 92 L 11/03/18 00:28 98 F 63 16 139/70 95 11/02/18 20:26 166/56 H 11/02/18 20:15 94 L 11/02/18 19:21 97.9 F 74 16 166/56 H 94 L Weight Weight 95.878 kg Most Recent Monitor Data Heart Rate from ECG 71 NIBP 168/69 NIBP BP-Mean 102 Respiration from ECG 15 SpO2 96 I&O: 11/01/18 11/02/18 11/03/18 06:59 06:59 06:59 Intake Total 240 340 580 Output Total 525 450 450 Balance -285 -110 130 Result Diagrams: 11/03/18 06:19 11/03/18 06:19 Phys Exam - Physical Examination Constitutional: NAD HEENT: moist MMs, sclera anicteric Neck: supple, full ROM Respiratory: no wheezing, no rales, no rhonchi, clear to auscultation bilateral Cardiovascular: RRR, no significant murmur Musculoskeletal: no edema, pulses present Neurological: non-focal, moves all 4 limbs Psychiatric: normal affect, A&O x 3 Skin: no rash, normal turgor, cap refill <2 seconds Dx/Plan (1) Physical deconditioning Code(s): R53.81 - OTHER [place] Status: Acute (2) Dementia Code(s): F03.90 - UNSPECIFIED DEMENTIA WITHOUT BEHAVIORAL DISTURBANCE Status: Suspected (3) Hypertensive emergency Code(s): I16.1 - HYPERTENSIVE EMERGENCY Status: Resolved (4) Hypertensive encephalopathy Code(s): I67.4 - HYPERTENSIVE ENCEPHALOPATHY Status: Resolved (5) CAD (coronary artery disease) Code(s): I25.10 - ATHSCL HEART DISEASE OF [place] CORONARY ARTERY W/O ANG PCTRS Status: Chronic Qualifiers: Coronary Disease-Associated Artery/Lesion type: [place] artery [place] vs. transplanted heart: [place] heart Associated angina: without angina Qualified Code(s): I25.10 - Atherosclerotic heart disease of [place] coronary artery without angina pectoris (6) HTN (hypertension) Code(s): I10 - ESSENTIAL (PRIMARY) HYPERTENSION Status: Chronic (7) PVD (peripheral vascular disease) Code(s): I73.9 - PERIPHERAL VASCULAR DISEASE, UNSPECIFIED Status: Chronic (8) Paroxysmal A-fib Code(s): I48.0 - PAROXYSMAL ATRIAL FIBRILLATION Status: Chronic - Plan Plan: HTN - BP poorly controlled over last 24 hours w/ max SBP of 179 approaching urgency range. - Will continue to monitor pressures and titrate meds PRN. Dementia, suspected - Doing much better over the past 4 days. A&Ox4 on exam. - Will continue donepezil and seroquel at night. - MRI shows only chronic changes, nothing acute. New systolic murmur - echo was of poor quality. Did show thickening of aortic valve. May consider repeating scan as an outpatient. Carotid stenosis - CTA finds R ICA with 80% stenosis, fu with cv surg as an outpatient Deconditioning - Patient has been clinically accepted to [place] for group home rehab and PT but will likely not be able to go until Sunday. Still pending insurance acceptance/approval. Hx of afib - Will continue home meds Hypertensive Emergency, resolved Hypokalemia, resolved Dispo: Patient remains stable. Ready for dc pending placement. Addendum - Attending - Attending Attestation Date/Time: 11/03/18 3909 I personally evaluated the patient and discussed the management with Dr. Butler. I agree with the History, Examination, Assessment and Plan documented above with any addition or exceptions noted below. The patient has no complaints this morning. Nursing was concerned about poor urine output. Pt has mild JOIE this morning. Likely 2/2 decreased po intake. Will start gentle IV fluids. Increasing hctz for better bp control. Trend creatinine.
[2018-11-03] MEDS ORDERED: Hydrochlorothiazide 25 MG TAB PO SCH ×2 (06:30→09:00)
[2018-11-03] MEDS ORDERED: Lisinopril 20 MG TAB PO SCH ×2 (06:30→21:00)
[2018-11-03 06:33] LABS: #Eosinphils 0.2 thou/uL (0.0-0.7); #Lymphocytes 2.2 thou/uL (1.20-3.40); #Monocytes 0.9 thou/uL (0.11-0.59); #Neutrophils 5.5 thou/uL (1.40-6.50); %Basophils 0.5 % (0.0-1.0); %Eosinophils 2.1 % (0.0-10.0); %Lymphocytes 25.2 % (21.0-51.0); %Monocytes 10.1 % (0.0-10.0); %Neutrophils 62.1 % (42.0-75.0); Hemoglobin 13.6 g/dL (12.0-16.0); Mean Corpuscular HGB CONC 32.6 g/dL (32.0-36.0); Mean Corpuscular Hemoglobin 30.2 pg (27.0-31.0); Mean Corpuscular Volume 92.5 fL (78.0-98.0); Platelet Count 152 thou/uL (130-400); White Blood Cell (WBC) Count 8.8 thou/uL (4.8-10.8)
[2018-11-03 06:45] LABS: Anion Gap 16 mmol/L (10-20); BUN (Urea Nitrogen) 49 mg/dL (9.8-20.1); Calc. Creatinine Clearance 61 mL/min (70-130); Calcium 9.6 mg/dL (7.8-10.44); Carbon Dioxide 22 mmol/L (23-31); Chloride 104 mmol/L (98-107); Estimated GFR-MDRD 45; Glucose 112 mg/dL (83-110); Potassium 4.5 mmol/L (3.5-5.1); Sodium 137 mmol/L (136-145)
[2018-11-03] MEDS: Enoxaparin Sodium 40 MG/0.4 ML SYRINGE SC SCH (09:08)
[2018-11-03] MEDS: Flecainide 50 MG TAB PO SCH ×2 (09:09→21:16)
[2018-11-03] MEDS: Citalopram 20 MG TAB PO SCH (09:09)
[2018-11-03] MEDS: Ferrous Sulfate 325 MG TAB PO SCH ×2 (09:11→17:46)
[2018-11-03] MEDS: Aspirin Chewable 81 MG TAB PO SCH (09:11)
[2018-11-03] MEDS: Oxybutynin 5 MG TAB PO SCH ×2 (09:11→21:16)
[2018-11-03] MEDS: Lactated Ringer's 1,000 ML IV SCH ×2 (09:17→21:17)
[2018-11-03] MEDS: Lorazepam 1 MG TAB PO SCH (21:16)
[2018-11-03] MEDS: Donepezil HCl 5 MG TAB PO SCH (21:16)
[2018-11-04 05:22] LABS: Anion Gap 13 mmol/L (10-20); BUN (Urea Nitrogen) 34 mg/dL (9.8-20.1); Calc. Creatinine Clearance 81 mL/min (70-130); Calcium 9.2 mg/dL (7.8-10.44); Carbon Dioxide 24 mmol/L (23-31); Chloride 104 mmol/L (98-107); Estimated GFR-MDRD 62; Glucose 100 mg/dL (83-110); Potassium 4.6 mmol/L (3.5-5.1); Sodium 136 mmol/L (136-145)
--- NOTE | 2018-11-04 06:23 | PDOC.FM ---
- Subjective Subjective: Ms. Draper was resting comfortably in bed. Has no concerns. Denies any pain, difficulty breathing. - Objective Vital Signs & Weight: Vital Signs (12 hours) Temp Pulse Resp BP BP BP Pulse Ox 11/04/18 04:30 98.1 F 66 21 H 120/46 L 92 L 11/04/18 00:02 97.3 F L 77 16 176/63 H 94 L 11/03/18 21:16 143/60 H 11/03/18 20:00 95 11/03/18 19:16 98.5 F 80 21 H 143/60 H 95 Weight Weight 96.978 kg Most Recent Monitor Data Heart Rate from ECG 71 NIBP 168/69 NIBP BP-Mean 102 Respiration from ECG 15 SpO2 96 I&O: 11/02/18 11/03/18 11/04/18 06:59 06:59 06:59 Intake Total 946 735 4658 Output Total 511 278 8318 Balance -110 130 736 Result Diagrams: 11/03/18 06:19 11/04/18 04:37 Phys Exam - Physical Examination Constitutional: NAD Respiratory: no wheezing, clear to auscultation bilateral Cardiovascular: RRR, no significant murmur Gastrointestinal: soft, non-tender, positive bowel sounds Musculoskeletal: no edema Neurological: non-focal Skin: normal turgor Dx/Plan (1) HTN (hypertension) Code(s): I10 - ESSENTIAL (PRIMARY) HYPERTENSION Status: Chronic (2) Hypertensive emergency Code(s): I16.1 - HYPERTENSIVE EMERGENCY Status: Resolved (3) Physical deconditioning Code(s): R53.81 - OTHER MALAISE Status: Acute (4) Dementia Code(s): F03.90 - UNSPECIFIED DEMENTIA WITHOUT BEHAVIORAL DISTURBANCE Status: Suspected - Plan Plan: HTN - BP ranged from systolic 120-176 over past 24 hrs - on lisinopril, dilt. HCTZ added this am. Will continue to monitor. Dementia, suspected - Doing much better over the past 4 days. A&Ox4 on exam. - Will continue donepezil and seroquel at night. - MRI shows only chronic changes, nothing acute. New systolic murmur - echo was of poor quality. Did show thickening of aortic valve. May consider repeating scan as an outpatient. Carotid stenosis - CTA finds R ICA with 80% stenosis, fu with cv surg as an outpatient Deconditioning - Patient has been clinically accepted to [facility] for senior living rehab and PT but will likely not be able to go until Sunday. Still pending insurance acceptance/approval. Hx of afib - Will continue home meds Hypertensive Emergency, resolved Hypokalemia, resolved Dispo: Patient remains stable. Ready for dc pending placement. Addendum - Attending - Attending Attestation Date/Time: 11/04/18 1708 I personally evaluated the patient and discussed the management with Dr. Zapata. I agree with the History, Examination, Assessment and Plan documented above with any addition or exceptions noted below. Patient denies complaints this morning. Her BP has been stable. Reports she feels strength is improving. She is awaiting insurance authorization for SNF and will be stable for discharge at that time.
[2018-11-04] MEDS: Aspirin Chewable 81 MG TAB PO SCH (08:19)
[2018-11-04] MEDS: Oxybutynin 5 MG TAB PO SCH (08:22)
[2018-11-04] MEDS: Ferrous Sulfate 325 MG TAB PO SCH (08:24)
[2018-11-04] MEDS: Flecainide 50 MG TAB PO SCH (08:24)
[2018-11-04] MEDS: Citalopram 20 MG TAB PO SCH (08:25)
[2018-11-04] MEDS: Enoxaparin Sodium 40 MG/0.4 ML SYRINGE SC SCH (08:26)
[2018-11-04] MEDS ORDERED: Hydrochlorothiazide 25 MG TAB PO SCH (09:00)
[2018-11-04 12:03] VITALS: TEMP 97.5
[2018-11-04 12:15] VITALS: BMI 36.6
[2018-11-04 12:18] VITALS: BP 132/45
--- NOTE | 2018-11-05 02:43 | DIS ---
DATE OF ADMISSION: 10/24/2018 DATE OF DISCHARGE: 11/04/2018 RESIDENT: Geovanna Zapata DO ADMITTING ATTENDING: Radha Fernandes MD DISCHARGE ATTENDING: Mauricio Lopez MD CONSULTS: 1. Cardiovascular Surgery, Dr. Singleton. 2. Pulmonology, Dr. Macias. PROCEDURES: 1. 10/24/2018, brain CT showed no acute intracranial abnormality and stable microvascular changes. 2. 10/24/2018, CT angiography showed no hemodynamically significant stenosis. 80% luminal caliber narrowing involving the proximal right ICA just distal to the carotid bulb, mild luminal caliber narrowing involving the proximal mid left ICA with adjacent surgical clips suspicious for changes of prior endarterectomy. 3. 10/26/2018, echo showed ejection fraction of 55% to 60%. 4. 10/26/2018, brain MRI shows chronic ischemic white matter changes. No acute infarct identified. PRIMARY DIAGNOSES: 1. Hypertensive emergency. 2. Hypokalemia. 3. Systolic murmur. 4. Carotid stenosis. 5. Dementia. 6. Hypertension. 7. Deconditioning. 8. History of atrial fibrillation. DISCHARGE MEDICATIONS: 1. [place] 10/325 mg one tab p.o. p.r.n. 2. Flecainide 50 mg p.o. b.i.d. 3. Diltiazem HCl 120 mg p.o. daily. 4. Aspirin 81 mg p.o. daily. 5. Oxybutynin 2.5 mg p.o. b.i.d. 6. Citalopram 20 mg p.o. daily. 7. Vitamin D 1000 units p.o. daily. 8. Hydrochlorothiazide 12.5 mg p.o. daily. 9. Donepezil 5 mg p.o. at bedtime. 10. Lisinopril 20 mg p.o. at 9:00 p.m. 11. Quetiapine 12.5 mg p.o. at bedtime. HISTORY OF PRESENT ILLNESS: A 78-year-old female with past medical history of hypertension, chronic kidney disease 3, heart failure with preserved ejection fraction, obstructive sleep apnea and hyperlipidemia, presented by EMS after found down. They went to check on her and found her slid out of bed. The patient was confused. The patient was admitted for hypertensive emergency, likely causing encephalopathy. The patient was started on a Cardene drip and blood pressure was gradually decreased. Imaging was completed as noted above. Additionally, Physical and Occupational Therapy worked with her for deconditioning. Hypokalemia was corrected. The patient did have a new systolic murmur. However, the echo was a poor quality and did show thickening of the aortic valve. May consider repeating scan in the outpatient setting. Blood pressures were lowered and at the time of discharge, blood pressure was 132/45, though there were elevated spikes at times. She was started on donepezil for suspected dementia. It was decided that the patient would need to be placed in a facility and this insurance approval process. Prolonged hospitalization for multiple days. DISPOSITION: Stable. DISCHARGE INSTRUCTIONS: 1. Location: [place]. 2. Diet: Heart healthy. 3. Activity: No restrictions. 4. Followup: Follow up at [facility] within 7 days. Job ID: [id number]
== END 2018-11-04 14:38 | DRG 304 ==
LOC: ERS 11:56 → CCU 15:21 → 2SE 10-28 21:38
PROVIDERS: ADMIT Student in an Organized Health Care Education/Training Program; ATTEND Student in an Organized Health Care Education/Training Program
DX: I16.1 Hypertensive emergency (principal); G93.41 Metabolic encephalopathy; I67.4 Hypertensive encephalopathy; I50.32 Chronic diastolic (congestive) heart failure; N17.9 Acute kidney failure, unspecified; I13.0 Hypertensive heart and chronic kidney disease with heart failure and stage 1 through stage 4 chronic kidney disease, or unspecified chronic kidney disease; N18.3 Chronic kidney disease, stage 3 (moderate); G47.33 Obstructive sleep apnea (adult) (pediatric); E78.5 Hyperlipidemia, unspecified; I48.0 Paroxysmal atrial fibrillation; F41.9 Anxiety disorder, unspecified; F32.9 Major depressive disorder, single episode, unspecified; D50.9 Iron deficiency anemia, unspecified; I25.10 Atherosclerotic heart disease of native coronary artery without angina pectoris; I73.9 Peripheral vascular disease, unspecified; E87.6 Hypokalemia; M19.90 Unspecified osteoarthritis, unspecified site; I65.21 Occlusion and stenosis of right carotid artery; R01.1 Cardiac murmur, unspecified; F03.90 Unspecified dementia, unspecified severity, without behavioral disturbance, psychotic disturbance, mood disturbance, and anxiety; E86.0 Dehydration; Z85.3 Personal history of malignant neoplasm of breast; Z90.12 Acquired absence of left breast and nipple; Z79.899 Other long term (current) drug therapy; Z79.82 Long term (current) use of aspirin
CPT/HCPCS: 36415; 51701; 64483; 70450; 70496; 70498; 70551; 71046; 80048; 80053; 80306; 80307; 81003; 81015; 82550; 83735; 83880; 84443; 84484; 85025; 93005; 93010; 93306; 96365; 96366; 96375; 99214; A4353; G0463; J1040; J1650; J2001; J2060; J3475; J3480; J3490; J7050; Q9966; Q9967; S0020

== ENCOUNTER 2019-06-04 13:39 | Outpatient (CLI) | payer MEDICARE ==
--- NOTE | 2019-06-04 16:08 | MMO ---
Bilateral MAMMO Bilat Screen [facility]. CLINICAL HISTORY: Patient is 78 years old and is seen for screening. The patient has no family history of breast cancer. The patient has a history of left Lumpectomy more than 10 years ago - malignant and left Radiation Therapy more than 10 years ago. VIEWS: The views performed were: bilateral craniocaudal with tomosynthesis and bilateral mediolateral oblique with tomosynthesis. FILMS COMPARED: The present examination has been compared to prior imaging studies performed at [facility] on 02/03/2014, 08/14/2014, 09/10/2015 and 01/25/2018. This study has been interpreted with the assistance of computer-aided detection. MAMMOGRAM FINDINGS: There are scattered fibroglandular densities. Finding 1: There are benign appearing calcifications seen in both breasts. Finding 2: There are stable post operative changes seen in the left breast. There are no suspicious masses, suspicious calcifications, or new areas of architectural distortion. IMPRESSION: THERE IS NO MAMMOGRAPHIC EVIDENCE OF MALIGNANCY. A ROUTINE FOLLOW-UP MAMMOGRAM IN 1 YEAR IS RECOMMENDED. THE RESULTS OF THIS EXAM WERE SENT TO THE PATIENT. ACR BI-RADS Category 2 - Benign finding MAMMOGRAPHY NOTE: 1. A negative mammogram report should not delay a biopsy if a dominant of clinically suspicious mass is present. 2. Approximately 10% to 15% of breast cancers are not detected by mammography. 3. Adenosis and dense breasts may obscure an underlying neoplasm. Reported by: LAKESHIA VINSON MD Electonically Signed: [id number]
== END 2019-06-04 13:40 | disposition home or self-care (01) ==
LOC: BICMAMMO 13:39
PROVIDERS: ATTEND Family Medicine
DX: Z12.31 Encounter for screening mammogram for malignant neoplasm of breast (principal)
CPT/HCPCS: 77063; 77067

== ENCOUNTER 2019-07-03 12:41 | Outpatient (CLI) | payer MEDICARE ==
[~2019-07-03 12:41] MED LIST changes: -ISOVUE-370 76%-LOCM 1 ML ONE; +Magnevist 469MG/ML 20 ML VIAL ONE
--- NOTE | 2019-07-03 14:31 | MRI ---
MR the lumbar spine with and without contrast INDICATION: Low back pain with radicular symptoms down both legs. COMPARISON: None. TECHNIQUE: Multiplanar multisequence MR images were obtained of lumbar spine with and without IV cont rast. Contrast: 20 cc of MultiHance. FINDINGS: Bone marrow: Normal. Distal spinal cord and conus: Normal. Conus is seen to terminate at the L1 level. Visualized retroperitoneum and paraspinal soft tissues: There is a 2.6 cm cyst involving the superior pole of the left kidney. Additional smaller cysts are seen within the left kidney. No free fluid or enlarged lymph nodes are evident. There is a 3.2 cm nodule involving the left adrenal gland identi fied as an adrenal adenoma on a prior CT abdomen pelvis with and without contrast dated 01/09/2017. There is a 1.6 cm right adrenal adenoma that is also stable to the prior exam. Vertebral levels: There is postprocedural changes of laminectomies at L4 and L5. There is retrolisthe sis of L3 on L4, L2 on L3 and L1 on L2 which are likely degenerative in nature. L5-S1: There is advanced facet joint degenerative change and a broad-based disc bulge with loss of di sc space height inducing mild to moderate bilateral neural foraminal narrowing. L4-5: There is a broad-based disc osteophyte complex with loss to 6 height inducing moderate bilatera l neural foraminal narrowing. L3-4: There is a disc osteophyte complex with facet hypertrophy inducing moderate to severe bilateral neural foraminal narrowing. L2-3: There is a broad-based disc osteophyte complex with facet hypertrophy inducing mild central can al narrowing with moderate right and mild left neural foraminal narrowing. L1-L2: There is a broad-based disc osteophyte complex with facet hypertrophy inducing mild neural for aminal narrowing and mild central canal narrowing. T12-L1: There is a broad-based bulge with facet hypertrophy but no appreciable central canal or neura l foraminal narrowing. Postcontrast series: No abnormal enhancement demonstrated. IMPRESSION: 1. Mild to moderate bilateral neural foraminal narrowing at L5-S1. 2. Moderate bilateral neural foraminal narrowing at L4-5. 3. Moderate to severe bilateral neural foraminal narrowing at L3-4. 4. Moderate right and mild left neural foraminal narrowing at L2-3 with mild central canal narrowing. 5. Left renal cysts and bilateral adrenal adenomas.
== END 2019-07-03 12:42 | disposition home or self-care (01) ==
LOC: BICMRI 12:41
PROVIDERS: ATTEND Specialist
DX: M51.16 Intervertebral disc disorders with radiculopathy, lumbar region (principal); M48.07 Spinal stenosis, lumbosacral region; M48.061 Spinal stenosis, lumbar region without neurogenic claudication; N28.1 Cyst of kidney, acquired; D35.02 Benign neoplasm of left adrenal gland; D35.01 Benign neoplasm of right adrenal gland
CPT/HCPCS: 72158; 82565; A9579

== ENCOUNTER 2019-11-20 10:47 | Emergency (ER) | payer MEDICARE ==
[2019-11-20] MEDS ORDERED: Fentanyl 100 MCG/2 ML VIAL ONE ×3 (11:17→16:29)
[2019-11-20 11:39] LABS: #Eosinphils 0.1 thou/uL (0.0-0.7); #Lymphocytes 1.3 thou/uL (1.20-3.40); #Monocytes 0.7 thou/uL (0.11-0.59); %Basophils 0.5 % (0.0-1.0); %Eosinophils 1.1 % (0.0-10.0); %Monocytes 8.9 % (0.0-10.0); %Neutrophils 73.5 % (42.0-75.0); Hemoglobin 10.9 g/dL (12.0-16.0); Mean Corpuscular Hemoglobin 27.3 pg (27.0-31.0); Mean Corpuscular Volume 88.1 fL (78.0-98.0); Mean Platelet Volume 10.5 fL (7.4-10.4); Platelet Count 250 thou/uL (130-400); White Blood Cell (WBC) Count 8.1 thou/uL (4.8-10.8)
[2019-11-20 11:52] LABS: ALT (SGPT) 12 U/L (8-55); AST (SGOT) 23 U/L (5-34); Albumin 3.8 g/dL (3.4-4.8); Alkaline Phosphatase 49 U/L (40-110); Anion Gap 16 mmol/L (10-20); BUN (Urea Nitrogen) 20 mg/dL (9.8-20.1); Bilirubin, Total 0.5 mg/dL (0.2-1.2); CK (CPK) 454 U/L (29-168); Calc. Creatinine Clearance 0 mL/min (70-130); Calcium 9.2 mg/dL (7.8-10.44); Carbon Dioxide 24 mmol/L (23-31); Chloride 103 mmol/L (98-107); Estimated GFR-MDRD 46; Globulin 3.2 g/dL (2.4-3.5); Glucose 114 mg/dL (83-110); Magnesium 1.8 mg/dL (1.6-2.6); Potassium 3.8 mmol/L (3.5-5.1); Sodium 139 mmol/L (136-145)
[2019-11-20 12:15] LABS: CKMB 4.3 ng/mL (0-6.6)
[2019-11-20 14:33] LABS: Troponin I 0.026 ng/mL (< 0.028)
[2019-11-20 14:54] LABS: Bilirubin Negative (Negative); Blood, Urine Negative (Negative); Clarity Turbid (Clear); Glucose, Urine (Dipstick) Normal (Negative); Leukocyte 500 Leu/uL (Negative); Nitrite Negative (Negative); Protein, Urine (Dipstick) 20 mg/dL (Neg-Trace); RBC/HPF 0-3 HPF (0-3); Squamous Epithelial 0-3 HPF (0-3); Urobilinogen Normal mg/dL (Less than 2); WBC/HPF Greater than 50 HPF (0-3)
[2019-11-20 14:57] LABS: Bacteria/HPF 1+ HPF (None Seen)
[2019-11-20] MEDS ORDERED: cefTRIAXone\\ROCEPHIN 2 GM VIAL ONE (15:06)
--- NOTE | 2019-11-20 15:08 | RAD ---
SINGLE VIEW OF THE CHEST: COMPARISON: 11/06/2017. HISTORY: Weakness for a month and chronic chest pain. FINDINGS: A single view of the chest shows an enlarged cardiomediastinal silhouette. A calcified granuloma pro jects over the right upper lobe. There is no evidence of consolidation or pleural effusion. Degener ative changes are seen in the spine. IMPRESSION: Cardiomegaly. POS: EAA
[2019-11-20 18:46] LABS: Troponin I 0.027 ng/mL (< 0.028)
== END 2019-11-20 20:50 ==
LOC: ERS 10:47
DX: R53.1 Weakness (principal); I48.91 Unspecified atrial fibrillation; E78.5 Hyperlipidemia, unspecified; E78.00 Pure hypercholesterolemia, unspecified; I10 Essential (primary) hypertension; F41.9 Anxiety disorder, unspecified; Z87.891 Personal history of nicotine dependence; M19.90 Unspecified osteoarthritis, unspecified site; Z79.899 Other long term (current) drug therapy; Z79.82 Long term (current) use of aspirin
CPT/HCPCS: 36415; 71045; 80053; 81003; 81015; 82550; 82553; 83735; 83880; 84484; 85025; 87077; 87086; 87186; 93005; 96365; 96375; 96376; J0696; J3010

== ENCOUNTER 2020-01-08 15:58 | Inpatient (IN) | payer MEDICARE, OTHER ==
--- NOTE | 2020-01-08 16:24 | RAD ---
RADIOGRAPH CHEST 1 VIEW: DATE: 01/08/2020 TIME: 4:15 PM HISTORY: 79-year-old female with dyspnea COMPARISON: 11/20/2019 FINDINGS: New finding of airspace opacities at left lower lung zone with silhouetting of the left hemidiaphragm . Diffusely prominent interstitial markings, especially at right lower lung zone. Mild blunting of right lateral costophrenic angle, and significant blunting of left lateral costophre allan angle. No pneumothorax. IMPRESSION: 1) evidence for small bilateral pleural effusions, left greater than right. 2) left lower lobe infiltrate versus atelectasis.
[2020-01-08 16:56] LABS: #Eosinphils 0.1 thou/uL (0.0-0.7); #Lymphocytes 1.7 thou/uL (1.20-3.40); #Monocytes 0.8 thou/uL (0.11-0.59); %Basophils 0.2 % (0.0-1.0); %Eosinophils 1.5 % (0.0-10.0); %Lymphocytes 21.8 % (21.0-51.0); %Monocytes 10.9 % (0.0-10.0); %Neutrophils 65.7 % (42.0-75.0); Hemoglobin 8.5 g/dL (12.0-16.0); Mean Corpuscular HGB CONC 31.2 g/dL (32.0-36.0); Mean Corpuscular Hemoglobin 26.3 pg (27.0-31.0); Mean Corpuscular Volume 84.2 fL (78.0-98.0); Platelet Count 295 thou/uL (130-400); RBC Distribution Width 16.2 % (11.5-14.5); Red Blood Cell (RBC) Count 3.22 mill/uL (4.20-5.40); White Blood Cell (WBC) Count 7.6 thou/uL (4.8-10.8)
[2020-01-08 17:02] LABS: INR-International Normal Ratio 1.1; PTT 24.6 sec (22.9-36.1); Prothrombin Time 13.9 sec (12.0-14.7)
[2020-01-08 17:16] LABS: ALT (SGPT) 13 U/L (8-55); AST (SGOT) 15 U/L (5-34); Albumin 3.6 g/dL (3.4-4.8); Alkaline Phosphatase 63 U/L (40-110); Anion Gap 14 mmol/L (10-20); BUN (Urea Nitrogen) 12 mg/dL (9.8-20.1); Bilirubin, Total 0.3 mg/dL (0.2-1.2); Calc. Creatinine Clearance 0 mL/min (70-130); Calcium 8.5 mg/dL (7.8-10.44); Carbon Dioxide 26 mmol/L (23-31); Chloride 102 mmol/L (98-107); Estimated GFR-MDRD 63; Globulin 2.9 g/dL (2.4-3.5); Glucose 93 mg/dL (83-110); Potassium 4.1 mmol/L (3.5-5.1); Protein, Total 6.5 g/dL (6.0-8.3); Sodium 138 mmol/L (136-145)
[2020-01-08] MEDS ORDERED: Furosemide 40 MG/4 ML VIAL ONE (17:51)
[2020-01-08] MEDS ORDERED: Nitroglycerin 2% Ointment 1 INCH/1 GM Packet ONE ×2 (17:51→18:03)
[2020-01-08] MEDS ORDERED: Pantoprazole 40 MG VIAL ONE (19:38)
[2020-01-08] MEDS ORDERED: Acetaminophen 325 MG TAB PO PRN (20:09)
[2020-01-08] MEDS ORDERED: Ondansetron ODT 4 MG TAB PO PRN (20:09)
[2020-01-08] MEDS ORDERED: Calcium Carbonate 500 MG ChewTAB PO PRN (20:09)
[2020-01-08] MEDS ORDERED: HYDROcodone/Acetaminophen 10/325 mg Tablet PO PRN (20:35)
[2020-01-08] MEDS ORDERED: Zolpidem Tartrate 5 MG TAB PO PRN (20:47)
--- NOTE | 2020-01-08 21:26 | PDOC.FPRHP ---
- History of Present Illness Chief Complaint: fatigue, SOB History of Present Illness: 79 yo F complaining of increasing fatigue, lightheadedness, and shortness of breath. She explains the symptoms began 2-3 weeks ago but have worsened over the past few days. Ms. Draper describes dyspnea on exertion and orthopnea and as well as increased swelling in her feet, the right side greater than the left. She denies LOC, cough, and CP. Patient's Hgb at PCP 2 weeks ago was 10, then 8 1 week ago at [facility]. She was given iron one month ago and began experiencing dark stool and diarrhea around that time. She discontinued the iron after a week and the dark stool and diarrhea have persisted. She does not take a blood thinner. Patient explains she had an endoscopy and colonoscopy a couple years ago and they found something in her intestine that they fixed. She denies any abdominal pain. Of note, patient was using a urinary wick catheter which she explains she also uses at home for her incontinence. ED Course: BNP 333.3, CXR - small b/l pleural effusions L>R, EKG - normal sinus rhythm, H/H : 8.5/27.1, FOBT+ placed on 1L O2 - maintained saturations >95% Medications Discontinued Medications Nitroglycerin (Nitro-Bid 2% Ointment) Confirm Administered Dose 1 inch .ROUTE .STK-MED ONE Stop: 01/08/20 17:52 Nitroglycerin (Nitro-Bid 2% Ointment) Confirm Administered Dose 1 inch .ROUTE .STK-MED ONE Stop: 01/08/20 18:04 Furosemide (Lasix) Confirm Administered Dose 40 mg .ROUTE .STK-MED ONE Stop: 01/08/20 17:52 Pantoprazole Sodium (Protonix) Confirm Administered Dose 40 mg .ROUTE .STK-MED ONE Stop: 01/08/20 19:39 - Allergies/Adverse Reactions Allergies Allergy/AdvReac Type Severity Reaction Status Date / Time No Known Allergies Allergy Verified 09/22/19 20:54 - Home Medications Medication Instructions Recorded Confirmed Type Lisinopril [Zestril] 20 mg PO 2100 #30 tab 10/30/18 01/08/20 Rx Aspirin [Ecotrin] 81 mg PO DAILY 01/08/20 01/08/20 History Cholecalciferol (Vitamin D3) 1,000 unit PO BID 01/08/20 01/08/20 History [Vitamin D3] Diltiazem HCl [Diltiazem 12Hr ER] 120 mg PO BID 01/08/20 01/08/20 History Donepezil HCl [Aricept] 5 mg PO HS 01/08/20 01/08/20 History Escitalopram Oxalate 20 mg PO DAILY 01/08/20 01/08/20 History Flecainide [Tambocor] 50 mg PO BID 01/08/20 01/08/20 History Hydrochlorothiazide 75 mg PO BID 01/08/20 01/08/20 History QUEtiapine Fumarate [SEROquel] 25 mg PO HS 01/08/20 01/08/20 History Zolpidem Tartrate 5 mg PO QPM 01/08/20 01/08/20 History - History PMHx: COPD, CKD 2, afib, hyperlipidemia, HTN, breast cancer, arthritis, depression, anxiety, urge incontinence, CAD, PVD, OA, breast cancer (s/p lumpectomy and radiation) PSHx: Endoscopy/Colonoscopy October 2017: small vascular ectasias in 2nd portion of duodenum were cauterized, diverticulosis throughout colon Hysterctomy , Lumbar laminectomy , left breast lumpectomy 1999, left carotid endarterectomy 2010 FHx: non-contributory Social: past smoker (stopped 2012), denies alcohol or drug use. Lives alone, neighbor comes by daily to help with meds. , 2 adult children. - Review of Systems General: denies: fever/chills, weight/appetite/sleep changes Eyes: denies: vision changes ENT: denies: nasal congestion Respiratory: reports: shortness of breath. denies: cough, congestion Cardiovascular: reports: edema, orthopnea. denies: chest pain, paroxysmal nocturnal dyspnea Gastrointestinal: reports: diarrhea, GI bleeding. denies: nausea, vomiting Genitourinary: reports: incontinence. denies: dysuria Skin: denies: rashes - Vital signs BP: 175/72 HR: 86 RR: 16 Tmax: 98.1 Pox: 95% on 1 Wt: 111kg - Physical Exam Constitutional: NAD, awake, alert and oriented HEENT: normocephalic and atraumatic, EOMI, grossly normal hearing Heart: RRR, no murmurs/rubs/gallops, pulses present -Heart: 1+ LE edema bilaterally Lungs: CTAB, good air movement, no wheezing Abdomen: soft, non-tender Musculoskeletal: ROM grossly normal Neurological: no focal deficit Psychiatric: normal mood and affect FMR H&P: Results - Labs Result Diagrams: 01/09/20 03:56 01/09/20 03:56 Lab results: WBC 7.6 thou/uL (4.8-10.8) 01/08/20 16:41 Hgb 8.5 g/dL (12.0-16.0) L 01/08/20 16:41 Hct 27.1 % (36.0-47.0) L 01/08/20 16:41 MCV 84.2 fL (78.0-98.0) 01/08/20 16:41 Plt Count 295 thou/uL (130-400) 01/08/20 16:41 Neutrophils % 65.7 % (42.0-75.0) 01/08/20 16:41 Sodium 138 mmol/L (136-145) 01/08/20 16:41 Potassium 4.1 mmol/L (3.5-5.1) 01/08/20 16:41 Chloride 102 mmol/L (98-107) 01/08/20 16:41 Carbon Dioxide 26 mmol/L (23-31) 01/08/20 16:41 BUN 12 mg/dL (9.8-20.1) 01/08/20 16:41 Creatinine 0.87 mg/dL (0.6-1.1) 01/08/20 16:41 Glucose 93 mg/dL (83-110) 01/08/20 16:41 Calcium 8.5 mg/dL (7.8-10.44) 01/08/20 16:41 Total Bilirubin 0.3 mg/dL (0.2-1.2) 01/08/20 16:41 AST 15 U/L (5-34) 01/08/20 16:41 ALT 13 U/L (8-55) 01/08/20 16:41 Alkaline Phosphatase 63 U/L (40-110) 01/08/20 16:41 B-Natriuretic Peptide 333.3 pg/mL (0-100) H 01/08/20 16:41 Serum Total Protein 6.5 g/dL (6.0-8.3) 01/08/20 16:41 Albumin 3.6 g/dL (3.4-4.8) 01/08/20 16:41 Laboratory Tests 01/08/20 01/08/20 01/08/20 16:41 16:41 16:41 PT 13.9 INR 1.1 APTT 24.6 Estimated GFR (MDRD) 63 Troponin I 0.024 FOBT + - EKG Interpretation EKG: normal sinus rhythm - Radiology Interpretation Chest x-ray Status: image reviewed by me, report reviewed by me Additional comment: small b/l pleural effusions L>R, L lower lobe infiltrate vs atelectasis FMR H&P: A/P - Problem List (1) Acute exacerbation of congestive heart failure Current Visit: Yes Status: Suspected Code(s): I50.9 - HEART FAILURE, UNSPECIFIED (2) Acute blood loss anemia Current Visit: Yes Status: Acute Code(s): D62 - ACUTE POSTHEMORRHAGIC ANEMIA Comment: stable at 7.5 (3) Physical deconditioning Current Visit: Yes Status: Chronic Code(s): R53.81 - OTHER MALAISE (4) Atrial fibrillation status post cardioversion Current Visit: No Status: Chronic Code(s): I48.91 - UNSPECIFIED ATRIAL FIBRILLATION (5) CAD (coronary artery disease) Current Visit: No Status: Chronic Code(s): I25.10 - ATHSCL HEART DISEASE OF [place] CORONARY ARTERY W/O ANG PCTRS Qualifiers: Coronary Disease-Associated Artery/Lesion type: [place] artery [place] vs. transplanted heart: [place] heart Associated angina: without angina Qualified Code(s): I25.10 - Atherosclerotic heart disease of [place] coronary artery without angina pectoris (6) CKD (chronic kidney disease) stage 2, GFR 60-89 ml/min Current Visit: No Status: Chronic Code(s): N18.2 - CHRONIC KIDNEY DISEASE, STAGE 2 (MILD) (7) HTN (hypertension) Current Visit: No Status: Chronic Code(s): I10 - ESSENTIAL (PRIMARY) HYPERTENSION (8) PVD (peripheral vascular disease) Current Visit: No Status: Chronic Code(s): I73.9 - PERIPHERAL VASCULAR DISEASE, UNSPECIFIED - Plan Suspected acute congestive heart failure exacerbation History of increasing dyspnea on exertion and orthopnea. Bilateral LE 1+ pitting edema. BNP 333.3 CXR: small b/l pleural effusion L>R 10/18 ECHO: EF 55-60%, no diastolic dysfunction strict I/Os daily weights Lasix 40mg O2 prn daily CMPs updated ECHO Anemia 1 month history of dark stool and increasing fatigue. Endoscopy/Colonoscopy October 2017: small vascular ectasias in 2nd portion of duodenum were cauterized, diverticulosis throughout colon H/H: 8.5/27.1 daily CBC pending ferritin, retic count, peripheral blood smear IV protonix GI consult CKD 2 eGFR 63, Cr 0.87 A fib status post cardioversion stable HTN Continue home meds CAD Continue home meds Osteoarthritis takes [place] Depressions/Anxiety Continue home meds Diet: HH, NPO at midnight IVF: none PPx: SCDs, Protonix Code: Full PCP: [facility] Dispo: expected LOS> 48hrs. After confirming with patient it was noted her PCP was [place] with [facility], will plan to transfer to [facility] emergency department in AM. FMR H&P: Upper Level - Plan Date/Time: 01/08/202123 IKaila, have evaluated this patient and agree with findings/plan as outlined by electrical intern resident. Pertinent changes/additions are listed here. 79YOF with a PMH notable for HTN, COPD, CKDII, & likely new onset CHF who presented to the ED complaining of progressively worsening fatigue, lightheadedness, and shortness of breath over the last few days. Endorsed dyspnea on exertion, orthopnea and LE edema. Also reported a known h/o anemia with loose, melanotic stools for ~1 month. Workup notable for Hgb of 8.8, +FOBT , & BNP of 333. CXR notable for B/L pleural effusions. HD stable on satting in mid 90s on 1L NC on exam. Lung exam unremarkable but also technically difficult 2/2 body habitus & limited mobility. 1+ pitting edema noted in B/L LEs, R>L. S/ p 80mg IV lasix, nitropaste, and 40mg IV protonix in the ED. Will admit to inpatient telemetry for close monitoring overnight. Plan to continue PRN O2 & wean as tolerated with continued diuresis w/ IV lasix, obtain an up-to-date ECHO , & continue stricts I&Os & QD weights for suspected new onset CHF exacerbation. For anemia 2/2 GI bleed w/ continue IV protonix BID & make NPO @ midnight pending GI consult in the AM. Will repeat CBC in AM but sooner should patient become HD unstable. Will resume home meds for all chronic conditions. Of note, shortly during patient interview it was confirmed that the patient sees Dr. Olson with [facility] as her PCP. Will therefore plan to turn over care to [facility] hospitalist service in the AM.
[2020-01-08 21:27] VITALS: BMI 39.9
[2020-01-08] MEDS: Lisinopril 20 MG TAB PO SCH (22:08)
[2020-01-08] MEDS: Flecainide 50 MG TAB PO SCH (22:08)
[2020-01-08] MEDS ORDERED: Sodium Chloride 0.9% (PF) 10 ML VIAL FS PRN (22:11)
[2020-01-09 04:16] LABS: Reticulocyte Count 3.7 % (0.5-1.5)
[2020-01-09 04:17] LABS: #Eosinphils 0.2 thou/uL (0.0-0.7); #Lymphocytes 1.6 thou/uL (1.20-3.40); #Monocytes 0.9 thou/uL (0.11-0.59); #Neutrophils 4.6 thou/uL (1.40-6.50); %Basophils 0.2 % (0.0-1.0); %Lymphocytes 21.5 % (21.0-51.0); %Monocytes 12.1 % (0.0-10.0); %Neutrophils 63.1 % (42.0-75.0); Hemoglobin 7.7 g/dL (12.0-16.0); Mean Corpuscular HGB CONC 30.9 g/dL (32.0-36.0); Mean Corpuscular Hemoglobin 25.9 pg (27.0-31.0); Mean Corpuscular Volume 83.8 fL (78.0-98.0); Mean Platelet Volume 9.1 fL (7.4-10.4); Platelet Count 280 thou/uL (130-400); Red Blood Cell (RBC) Count 2.97 mill/uL (4.20-5.40); White Blood Cell (WBC) Count 7.2 thou/uL (4.8-10.8)
[2020-01-09 04:39] LABS: ALT (SGPT) 12 U/L (8-55); AST (SGOT) 14 U/L (5-34); Albumin 3.2 g/dL (3.4-4.8); Alkaline Phosphatase 55 U/L (40-110); Anion Gap 12 mmol/L (10-20); BUN (Urea Nitrogen) 12 mg/dL (9.8-20.1); Bilirubin, Total 0.3 mg/dL (0.2-1.2); Calc. Creatinine Clearance 91 mL/min (70-130); Calcium 8.3 mg/dL (7.8-10.44); Carbon Dioxide 30 mmol/L (23-31); Chloride 101 mmol/L (98-107); Estimated GFR-MDRD 61; Globulin 3.1 g/dL (2.4-3.5); Glucose 95 mg/dL (83-110); Potassium 3.7 mmol/L (3.5-5.1); Protein, Total 6.3 g/dL (6.0-8.3); Sodium 139 mmol/L (136-145)
[2020-01-09 04:40] LABS: Band 1 % (5-11); Hemoglobin 7.7 g/dL (12.0-16.0); Hypochromia SLIGHT = 6-15 cells (100X) (0-5/hpf); Lymphocytes 15 % (21-51); MDiff Complete? YES; Mean Corpuscular HGB CONC 30.4 g/dL (32.0-36.0); Mean Corpuscular Hemoglobin 25.5 pg (27.0-31.0); Mean Platelet Volume 9.1 fL (7.4-10.4); Monocytes 12 % (0-10); Neutrophil 72 % (42-75); Platelet Count 281 thou/uL (130-400); Platelet Morphology Comment Appears Adequate; White Blood Cell (WBC) Count 7.1 thou/uL (4.8-10.8)
[2020-01-09] MEDS: Furosemide 40 MG/4 ML VIAL SLOW IVP SCH ×2 (05:30→14:07)
--- NOTE | 2020-01-09 08:10 | PDOC.EVN ---
Event Note - Event Note Event Note: spoke with hospitalist on-call physician for transfer of care @ 0800, Dr. Espinal, he accepts.
[2020-01-09 12:19] LABS: Iron Binding Capacity, Total 448 mcg/dL (265-497)
[2020-01-09 12:20] LABS: Iron 25 ug/dL (50-170)
[2020-01-09 13:01] LABS: Iron 25 ug/dL (50-170); Iron Binding Capacity, Total 450 mcg/dL (265-497)
--- NOTE | 2020-01-09 13:51 | PDOC.HOSPP ---
- Subjective Encounter Date: 01/09/20 Encounter Time: 10:20 Subjective: sob is better, is still needing nasal canula O2 no chest pain or palp - Objective Vital Signs & Weight: Vital Signs (12 hours) Temp Pulse Pulse Pulse Resp BP BP 01/09/20 11:58 98.3 F 83 16 01/09/20 09:27 99.2 F 82 18 01/09/20 09:00 87 87 143/65 H 157/67 H 01/09/20 03:35 98.6 F 80 18 BP Pulse Ox 01/09/20 11:58 142/66 H 93 L 01/09/20 09:27 157/67 H 100 01/09/20 09:00 01/09/20 03:35 149/65 H 93 L Weight Weight 245 lb I&O: 01/08/20 01/09/20 01/10/20 06:59 06:59 06:59 Intake Total 280 Output Total 1150 800 Balance -870 -800 Result Diagrams: 01/09/20 03:56 01/09/20 03:56 Hospitalist ROS - Medication Medications: Active Medications Generic Name Dose Route Start Last Admin Trade Name Freq PRN Reason Stop Dose Admin Flecainide Acetate 50 mg 01/08/20 21:00 01/08/20 22:08 Tambocor PO 50 mg BID RAJI Administration Furosemide 40 mg 01/09/20 06:00 01/09/20 05:30 Lasix SLOW IVP 40 mg 0600,1400 RAJI Administration Lisinopril 20 mg 01/08/20 21:00 01/08/20 22:08 Zestril PO 20 mg 2100 RAJI Administration Quetiapine Fumarate 12.5 mg 01/08/20 21:00 01/08/20 22:09 Seroquel PO 12.5 mg HS RAJI Administration - Exam General Appearance: awake alert Eye: PERRL, anicteric sclera ENT: no oropharyngeal lesions, moist mucosa Neck: supple, no JVD Heart: RRR, no murmur Respiratory: no wheezes, no rales, rhonchi Gastrointestinal: soft, non-tender, non-distended, normal bowel sounds Extremities: no cyanosis, no edema Neurological: cranial nerve grossly intact, no focal deficits Psychiatric: normal affect, A&O x 3 Hosp A/P (1) COPD (chronic obstructive pulmonary disease) Status: Acute Qualifiers: COPD type: COPD with acute exacerbation Qualified Code(s): J44.1 - Chronic obstructive pulmonary disease with (acute) exacerbation (2) Acute exacerbation of congestive heart failure Code(s): I50.9 - HEART FAILURE, UNSPECIFIED Status: Acute Qualifiers: Heart failure type: diastolic Qualified Code(s): I50.33 - Acute on chronic diastolic (congestive) heart failure (3) H/O: CVA (cerebrovascular accident) Code(s): Z86.73 - PRSNL HX OF TIA (TIA), AND CEREB INFRC W/O RESID DEFICITS Status: Chronic (4) CAD (coronary artery disease) Code(s): I25.10 - ATHSCL HEART DISEASE OF [place] CORONARY ARTERY W/O ANG PCTRS Status: Chronic Qualifiers: Coronary Disease-Associated Artery/Lesion type: [place] artery [place] vs. transplanted heart: [place] heart Associated angina: without angina Qualified Code(s): I25.10 - Atherosclerotic heart disease of [place] coronary artery without angina pectoris (5) HTN (hypertension) Code(s): I10 - ESSENTIAL (PRIMARY) HYPERTENSION Status: Chronic Qualifiers: Hypertension type: essential hypertension Qualified Code(s): I10 - Essential (primary) hypertension (6) Iron deficiency anemia due to chronic blood loss Code(s): D50.0 - IRON DEFICIENCY ANEMIA SECONDARY TO BLOOD LOSS (CHRONIC) Status: Chronic (7) PVD (peripheral vascular disease) Code(s): I73.9 - PERIPHERAL VASCULAR DISEASE, UNSPECIFIED Status: Chronic (8) Paroxysmal A-fib Code(s): I48.0 - PAROXYSMAL ATRIAL FIBRILLATION Status: Chronic - Plan is on lasix iv, nebs, steroids will switch to oral lasix in am currently in sinus rhythm to amb as tolerated taper and dc O2 in am dc plan in 24 hrs prior ef 55% in 09/2018 has low Hb of 7.7g, prior h/o vascular ectasia and bleed from duodenum 10/2017 GI consult continue alicia GUTIERREZ, mallory roberts, parul.
[2020-01-09] MEDS: methylPREDNISolone Sod Succ 40 MG VIAL IVP SCH ×2 (14:08→20:48)
[2020-01-09] MEDS: Pantoprazole 40 MG VIAL IVP SCH ×2 (14:08→20:55)
[2020-01-09] MEDS: Aspirin Chewable 81 MG TAB PO SCH (18:30)
[2020-01-09] MEDS: Cholecalciferol 1,000 UNITS (25 MCG) TAB PO SCH (18:30)
[2020-01-09] MEDS: Flecainide 50 MG TAB PO SCH ×2 (18:30→20:47)
[2020-01-09] MEDS: Escitalopram Oxalate 20 mg Tablet PO SCH (18:31)
[2020-01-09] MEDS: Lisinopril 20 MG TAB PO SCH (20:47)
--- NOTE | 2020-01-09 21:29 | CON ---
DATE OF CONSULTATION: 01/09/2020 REASON FOR CONSULTATION: Anemia. CONSULTING PROVIDER: Tenisha Espinal MD HISTORY OF PRESENT ILLNESS: The patient is a 79-year-old female with past medical history of COPD, chronic kidney disease stage 2, atrial fibrillation, hyperlipidemia, hypertension, GERD, urinary incontinence, coronary artery disease, peripheral vascular disease, congestive heart failure, depression, anxiety, osteoarthritis, and breast cancer, status post lumpectomy and radiation therapy, presenting with complaints of shortness of breath. She states for the last several months, she has been having increased shortness of breath as well as generalized fatigue that has been lifestyle limiting. However, over the last 1 to 2 months, these symptoms have increased to the point where the patient is experiencing generalized weakness to the point where she has trouble getting out of bed. Within the last 1 to 2 months, she also had increasing lower extremity edema that was associated with stopping her Lasix that she had been placed on for congestive heart failure. However, upon being restarted on her Lasix, this has resolved. She was also being followed by her primary care physician for anemia and was ultimately placed on iron supplementation about four weeks ago. However, with the administration of iron, it generated increased frequency of her stools to the point where she was having 3 to 4 semi-solid bowel movements per day. She subsequently stopped iron supplementation about two weeks ago and it resulted in decreased frequency of her bowel movements, but continued to have similar consistency. Currently, she has around 2-3 semi-solid bowel movements per day that are darker brown in coloration, although she does deny any overtly black stools. Currently, she denies any nausea, vomiting, fevers, chills, abdominal pain, hematemesis, melena, hematochezia, dysphagia, odynophagia, or weight loss. Of note, the patient was seen by her primary care physician approximately 2 weeks ago and at that time, she was noted to have a hemoglobin of 10. REVIEW OF SYSTEMS: A 10-category review of systems was obtained with all responses negative except for the pertinent positives as listed in HPI. PAST MEDICAL HISTORY: As per HPI. PAST SURGICAL HISTORY: Hysterectomy, lumbar laminectomy, left breast lumpectomy, left carotid endarterectomy, and EGD and colonoscopy in October 2017. FAMILY HISTORY: Denies any GI malignancies. SOCIAL HISTORY: Denies any tobacco, alcohol, or illicit drug use. OUTPATIENT MEDICATIONS: Reviewed. ALLERGIES: NO KNOWN DRUG ALLERGIES. PHYSICAL EXAMINATION: VITAL SIGNS: Temperature 98.3, pulse 83, blood pressure 142/66, respiratory rate 16, and saturating 93% on 1.5 L nasal cannula. GENERAL: The patient was lying in bed, in no acute distress. Alert and oriented x4. HEENT: Normocephalic and atraumatic. NECK: Supple. No JVD or scleral icterus noted. CARDIOVASCULAR: Regular rate and rhythm with no discernible murmurs, gallops, or rubs. RESPIRATORY: Diminished breath sounds auscultated in all lung gordon with end-expiratory wheezing heard in all lung gordon as well. ABDOMEN: Normoactive bowel sounds. Soft, nondistended, mild tenderness to palpation in the midepigastric region. EXTREMITIES: No cyanosis, clubbing, or edema. LABORATORY DATA: CBC with a white blood cell count of 7.1, hemoglobin 7.7, hematocrit 25.2, platelets 281, MCV 84, RDW 16, reticulocyte count 3.7%. INR 1.1. Chemistry with sodium of 139, potassium 3.7, chloride 101, CO2 of 30, BUN 12, creatinine 0.9, glucose 95, AST 14, ALT 12, alkaline phosphatase 55, total bilirubin 0.3, albumin 3.2, BNP 333. IMAGING DATA: Chest x-ray was obtained on January 08, 2020, which showed evidence of small bilateral pleural effusions with left greater than the right and there was left lower lobe infiltrate versus an atelectasis. The patient also underwent echocardiography on January 09, 2020, which showed an ejection fraction of 60% to 65% with diastolic dysfunction. The left atrium was moderately dilated with trace mitral regurgitation, aortic valve sclerosis was seen without stenosis, and mild tricuspid regurgitation was also seen. ASSESSMENT AND PLAN: The patient is a 79-year-old female with past medical history of chronic obstructive pulmonary disease, chronic kidney disease stage 2, coronary artery disease, congestive heart failure, atrial fibrillation, hyperlipidemia, hypertension, peripheral vascular disease, urinary urge incontinence, osteoarthritis, anxiety, and breast cancer status post lumpectomy and radiation therapy, presenting with increased shortness of breath, generalized fatigue, and worsening euvolemic hematocrit consistent with anemia with uncertain etiology. Anemia of uncertain etiology: The patient is presenting with increased shortness of breath, fatigue, and generalized weakness that has been present for several months now. However, over the last 1 to 2 months, this has been progressively worsening to the point where the patient has been having difficulty performing ADLs and/or getting out of bed. This was associated with darker colored stools with the administration of iron in addition to diarrhea, having approximately 3 to 4 semi-solid bowel movements per day, but with the discontinuation of the iron, the stool coloration and stool consistency has not changed. Upon review of her chart, the patient did have a stated hemoglobin of approximately 10 around two weeks ago, but upon presentation here to the ER, her hemoglobin is now 7.7. On review of her remote chart, she had upper and lower endoscopy performed on November 08, 2017, where during the upper endoscopy, she had erosive changes seen in the antrum as well as multiple small duodenal arteriovenous malformations, one of which was actively oozing blood contributing to an anemia at that particular time. When asking the patient if her symptoms are similar to the previous episode in 2018, she responded to the affirmative. At this time, her anemia could be due to a number of different conditions with the differential including esophagitis, gastritis, duodenitis, peptic ulcer disease, recurrence of her duodenal arteriovenous malformations, cecal arteriovenous malformation, Dieulafoy lesion, non GI etiology of her anemia (anemia of chronic disease) and/or GI neoplasm (much less likely). RECOMMENDATIONS: 1. Would continue to trend her H and H and transfuse as necessary to maintain an H and H of 7/21. 2. Continue to monitor clinically for signs of active GI bleeding. 3. We will follow up on her iron indices to further characterize her anemia. 4. Would place the patient on a clear liquid diet today and n.p.o. at midnight in anticipation for possible endoscopy tomorrow. 5. Would tentatively plan for upper endoscopy tomorrow for repeat evaluation of the duodenal AVMs. 6. Given her relatively negative colonoscopy approximately 2 years ago, the likelihood of a colonic malignancy is low. However, as she has a negative upper endoscopy, repeat colonoscopy and/or tagged red cell scan may be indicated for localization of bleeding source. 7. We would hold anticoagulation for the current time in light of possible GI bleeding. We will continue to follow. Please call with any questions. Job ID: [id number]
[2020-01-10] MEDS: methylPREDNISolone Sod Succ 40 MG VIAL IVP SCH ×3 (05:01→21:45)
[2020-01-10] MEDS: Furosemide 40 MG/4 ML VIAL SLOW IVP SCH (05:01)
[2020-01-10 05:12] LABS: #Lymphocytes 0.8 thou/uL (1.20-3.40); #Monocytes 0.3 thou/uL (0.11-0.59); #Neutrophils 6.2 thou/uL (1.40-6.50); %Basophils 0.1 % (0.0-1.0); %Eosinophils 0.1 % (0.0-10.0); %Lymphocytes 11.4 % (21.0-51.0); %Monocytes 3.9 % (0.0-10.0); %Neutrophils 84.5 % (42.0-75.0); Hemoglobin 8.8 g/dL (12.0-16.0); Mean Corpuscular HGB CONC 29.9 g/dL (32.0-36.0); Mean Corpuscular Hemoglobin 24.7 pg (27.0-31.0); Mean Corpuscular Volume 82.5 fL (78.0-98.0); Mean Platelet Volume 9.2 fL (7.4-10.4); Platelet Count 341 thou/uL (130-400); RBC Distribution Width 16.1 % (11.5-14.5); Red Blood Cell (RBC) Count 3.57 mill/uL (4.20-5.40); White Blood Cell (WBC) Count 7.3 thou/uL (4.8-10.8)
[2020-01-10 05:30] LABS: ALT (SGPT) 10 U/L (8-55); AST (SGOT) 12 U/L (5-34); Albumin 3.7 g/dL (3.4-4.8); Alkaline Phosphatase 61 U/L (40-110); Anion Gap 14 mmol/L (10-20); BUN (Urea Nitrogen) 13 mg/dL (9.8-20.1); Bilirubin, Total 0.4 mg/dL (0.2-1.2); Calc. Creatinine Clearance 97 mL/min (70-130); Calcium 9.1 mg/dL (7.8-10.44); Carbon Dioxide 29 mmol/L (23-31); Chloride 99 mmol/L (98-107); Estimated GFR-MDRD 67; Globulin 3.5 g/dL (2.4-3.5); Glucose 145 mg/dL (83-110); Potassium 3.6 mmol/L (3.5-5.1); Protein, Total 7.2 g/dL (6.0-8.3); Sodium 138 mmol/L (136-145)
[2020-01-10] MEDS ORDERED: PROPOFOL 200 MG/20 ML VIAL ONE (11:35)
--- NOTE | 2020-01-10 12:14 | PDOC.HOSPP ---
- Subjective Encounter Date: 01/10/20 Encounter Time: 11:00 Subjective: no abd pain or nausea or vomiting no sob breathing better now, is amb to bathroom and back - Objective Vital Signs & Weight: Vital Signs (12 hours) Temp Pulse Resp BP BP Pulse Ox 01/10/20 11:20 98 F 87 16 133/59 L 93 L 01/10/20 07:30 97.8 F 92 18 152/68 H 93 L 01/10/20 07:00 99 16 01/10/20 04:00 99.4 F 99 16 134/62 99 Weight Weight 238 lb 8 oz I&O: 01/09/20 01/10/20 01/11/20 06:59 06:59 06:59 Intake Total 280 720 Output Total 1150 3500 Balance -870 -2780 Result Diagrams: 01/10/20 04:40 01/10/20 04:40 Hospitalist ROS - Medication Medications: Active Medications Generic Name Dose Route Start Last Admin Trade Name Freq PRN Reason Stop Dose Admin Albuterol/Ipratropium 3 ml 01/09/20 19:00 01/10/20 07:00 Duoneb NEB 3 ml [id number] RAJI Administration Aspirin 81 mg 01/09/20 09:00 01/09/20 18:30 Aspirin Chewable PO Not Given DAILY RAJI Cholecalciferol 1,000 mcg 01/09/20 09:00 01/09/20 18:30 Vitamin D3 PO 1,000 mcg DAILY RAJI Administration Diltiazem HCl 120 mg 01/09/20 09:00 01/09/20 18:31 Cardizem Cd PO 120 mg DAILY RAJI Administration Escitalopram Oxalate 20 mg 01/09/20 09:00 01/09/20 18:31 Lexapro PO 20 mg DAILY RAJI Administration Flecainide Acetate 50 mg 01/08/20 21:00 01/09/20 20:47 Tambocor PO 50 mg BID RAJI Administration Lisinopril 20 mg 01/08/20 21:00 01/09/20 20:47 Zestril PO 20 mg 2100 RAJI Administration Methylprednisolone Sodium Succinate 20 mg 01/09/20 14:00 01/10/20 05:01 Solu-Medrol IVP 20 mg Q8HR RAJI Administration Pantoprazole Sodium 40 mg 01/09/20 09:00 01/09/20 20:55 Protonix IVP 40 mg Q12HR RAJI Administration Quetiapine Fumarate 12.5 mg 01/08/20 21:00 01/09/20 20:48 Seroquel PO 12.5 mg HS RAJI Administration - Exam General Appearance: awake alert Eye: PERRL, anicteric sclera ENT: no oropharyngeal lesions, moist mucosa Neck: supple, no JVD Heart: RRR, no murmur Respiratory: no wheezes, no rales, rhonchi Gastrointestinal: soft, non-tender, non-distended, normal bowel sounds Extremities: no cyanosis, no edema Neurological: cranial nerve grossly intact, no focal deficits Psychiatric: normal affect, A&O x 3 Hosp A/P (1) COPD (chronic obstructive pulmonary disease) Status: Acute Qualifiers: COPD type: COPD with acute exacerbation Qualified Code(s): J44.1 - Chronic obstructive pulmonary disease with (acute) exacerbation (2) Acute exacerbation of congestive heart failure Code(s): I50.9 - HEART FAILURE, UNSPECIFIED Status: Acute Qualifiers: Heart failure type: diastolic Qualified Code(s): I50.33 - Acute on chronic diastolic (congestive) heart failure (3) H/O: CVA (cerebrovascular accident) Code(s): Z86.73 - PRSNL HX OF TIA (TIA), AND CEREB INFRC W/O RESID DEFICITS Status: Chronic (4) CAD (coronary artery disease) Code(s): I25.10 - ATHSCL HEART DISEASE OF [place] CORONARY ARTERY W/O ANG PCTRS Status: Chronic Qualifiers: Coronary Disease-Associated Artery/Lesion type: [place] artery [place] vs. transplanted heart: [place] heart Associated angina: without angina Qualified Code(s): I25.10 - Atherosclerotic heart disease of [place] coronary artery without angina pectoris (5) HTN (hypertension) Code(s): I10 - ESSENTIAL (PRIMARY) HYPERTENSION Status: Chronic Qualifiers: Hypertension type: essential hypertension Qualified Code(s): I10 - Essential (primary) hypertension (6) Iron deficiency anemia due to chronic blood loss Code(s): D50.0 - IRON DEFICIENCY ANEMIA SECONDARY TO BLOOD LOSS (CHRONIC) Status: Chronic (7) PVD (peripheral vascular disease) Code(s): I73.9 - PERIPHERAL VASCULAR DISEASE, UNSPECIFIED Status: Chronic (8) Paroxysmal A-fib Code(s): I48.0 - PAROXYSMAL ATRIAL FIBRILLATION Status: Chronic - Plan is on lasix po, nebs, steroids for egd today currently in sinus rhythm to amb as tolerated taper and dc O2 for spo2 of 90% dc plan in am if stable prior ef 55% in 09/2018 has low Hb of 7.7g, prior h/o vascular ectasia and bleed from duodenum 10/2017 continue alicia GUTIERREZ, tambocor, lexapro, seroquel. hemostable anticoagulation per GI adv post procedure
[2020-01-10 12:38] LABS: SARS-CoV-2 MS2 Positive; SARS-CoV-2 N Gene Negative; SARS-CoV-2 S Gene Negative; SARS-CoV-2 orf1ab Negative
[2020-01-10] MEDS ORDERED: Ondansetron HCl/PF 4 MG/2 ML Vial IVP PRN (14:54)
[2020-01-10] MEDS: Aspirin Chewable 81 MG TAB PO SCH (16:18)
[2020-01-10] MEDS: Escitalopram Oxalate 20 mg Tablet PO SCH (16:19)
[2020-01-10] MEDS: Cholecalciferol 1,000 UNITS (25 MCG) TAB PO SCH (16:20)
[2020-01-10] MEDS: Furosemide 40 MG TAB PO SCH ×2 (16:20→16:21)
[2020-01-10] MEDS: Pantoprazole 40 MG VIAL IVP SCH ×2 (16:20→21:45)
[2020-01-10] MEDS: Flecainide 50 MG TAB PO SCH ×2 (16:20→21:47)
--- NOTE | 2020-01-10 18:55 | OP ---
DATE OF PROCEDURE: 01/10/2020 PROCEDURE PERFORMED: EGD with control of hemorrhage. INDICATION OF PROCEDURE: Anemia, history of bleeding duodenal arteriovenous malformations. DESCRIPTION OF PROCEDURE: After the risks and benefits of the procedure were explained to the patient including risks of bleeding, infection, perforation, reactions to anesthesia, aspiration, and/or pain, informed consent was obtained. The patient was then taken to the endoscopy suite, where she was maneuvered into the left lateral decubitus position, followed by introduction of deep sedation via propofol and anesthesia support. Once adequate sedation was achieved, the standard gastroscope was introduced into the mouth with intubation of the esophagus, stomach, and the proximal small intestines with the findings listed below. The patient tolerated the procedure well with no immediate perioperative complications. On conclusion of the procedure, all equipment was removed from the patient, and she was transferred to PACU in satisfactory condition. FINDINGS: Esophagus: Normal-appearing mucosa was seen in the proximal, mid, and distal esophagus. There was no evidence of erosions, ulcerations, mass lesions, or active/recent bleeding. Stomach: Normal-appearing mucosa was seen in the gastric cardia, fundus, body, greater curvature, antrum, and incisura. There was no evidence of erosions, ulcerations, mass lesions, or active/recent bleeding. Duodenum: Normal-appearing mucosa was seen upon entry into the duodenal bulb, but there was the appearance of blood clots that upon irrigation and suctioning revealed no other underlying abnormalities. Maneuvering past the duodenal sweep and into the second/third portion of the duodenum, mild oozing of blood was noted from one of the small intestinal folds. Using the APC probe as a probe, the folds were then retracted revealing a small arteriovenous malformation measuring 2 to 3 mm in size that was actively oozing blood. Using argon plasma coagulation, the arteriovenous malformation was then cauterized with good hemostasis achieved and no bleeding seen at the end of the maneuver. There were no additional areas of AVMs or bleeding seen throughout the rest of the small intestine. IMPRESSION: 1. 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 2. Otherwise normal upper endoscopy. RECOMMENDATIONS: 1. Would continue to trend the patient's H and H and transfuse as necessary to maintain an H and H of 7/21. 2. Continue to monitor clinically for signs of active GI bleeding. 3. Would continue to avoid any NSAIDs or anticoagulation for at least the next 48 hours. 4. Would continue the patient on pantoprazole 40 mg IV b.i.d. 5. Can advance the patient's diet to a clear liquid diet and then advance as tolerated, if no drop in her H and H. We will continue to follow. Please call with any questions. Job ID: [id number]
[2020-01-10] MEDS: Lisinopril 20 MG TAB PO SCH (21:48)
[2020-01-11 04:59] LABS: Band 1 % (5-11); Elliptocytes SLIGHT = 2-5 cells (100X) (0-1/hpf); Hemoglobin 9.1 g/dL (12.0-16.0); Hypochromia SLIGHT = 6-15 cells (100X) (0-5/hpf); Lymphocytes 2 % (21-51); MDiff Complete? YES; Mean Corpuscular HGB CONC 31.1 g/dL (32.0-36.0); Mean Corpuscular Hemoglobin 25.6 pg (27.0-31.0); Mean Corpuscular Volume 82.4 fL (78.0-98.0); Mean Platelet Volume 9.2 fL (7.4-10.4); Monocytes 3 % (0-10); Neutrophil 94 % (42-75); Platelet Count 367 thou/uL (130-400); Platelet Morphology Comment Appears Adequate; RBC Distribution Width 16.2 % (11.5-14.5); Red Blood Cell (RBC) Count 3.56 mill/uL (4.20-5.40); Target Cells SLIGHT = 2-5 cells (100X) (0-1/hpf); White Blood Cell (WBC) Count 23.2 thou/uL (4.8-10.8)
[2020-01-11 05:09] LABS: ALT (SGPT) 9 U/L (8-55); AST (SGOT) 11 U/L (5-34); Albumin 3.6 g/dL (3.4-4.8); Alkaline Phosphatase 53 U/L (40-110); Anion Gap 12 mmol/L (10-20); BUN (Urea Nitrogen) 16 mg/dL (9.8-20.1); Bilirubin, Total 0.4 mg/dL (0.2-1.2); Calc. Creatinine Clearance 95 mL/min (70-130); Calcium 8.7 mg/dL (7.8-10.44); Carbon Dioxide 30 mmol/L (23-31); Chloride 97 mmol/L (98-107); Estimated GFR-MDRD 66; Globulin 3.4 g/dL (2.4-3.5); Glucose 135 mg/dL (83-110); Potassium 3.2 mmol/L (3.5-5.1); Sodium 136 mmol/L (136-145)
[2020-01-11] MEDS: methylPREDNISolone Sod Succ 40 MG VIAL IVP SCH (06:07)
[2020-01-11] MEDS: Aspirin Chewable 81 MG TAB PO SCH (09:17)
[2020-01-11] MEDS: Escitalopram Oxalate 20 mg Tablet PO SCH (09:17)
[2020-01-11] MEDS: Cholecalciferol 1,000 UNITS (25 MCG) TAB PO SCH (09:17)
[2020-01-11] MEDS: Flecainide 50 MG TAB PO SCH ×2 (09:17→22:01)
[2020-01-11] MEDS: Furosemide 40 MG TAB PO SCH ×2 (09:18→14:52)
[2020-01-11] MEDS: Pantoprazole 40 MG VIAL IVP SCH ×2 (09:18→22:01)
[2020-01-11] MEDS: Lisinopril 2.5 MG TAB PO SCH (09:20)
--- NOTE | 2020-01-11 12:12 | PRG ---
DATE OF SERVICE: 01/11/2020 REASON FOR CONSULTATION: Anemia, duodenal AVM. SUBJECTIVE: The patient underwent upper endoscopy yesterday with the finding of a small arteriovenous malformation seen in the second portion/third portion of the duodenum that was actively oozing blood. This was intervened upon with argon plasma coagulation with good hemostasis achieved. Since the procedure yesterday, the patient did not have any acute events or problems overnight nor has she had any episodes of nausea, vomiting, fevers, chills, abdominal pain, melena, hematochezia, or hematemesis. Today, she states that she is feeling much better and is ready for more solid food. OBJECTIVE: VITAL SIGNS: Temperature 98, pulse 87, blood pressure 104/61, respiratory rate 14, saturating 95% on room air. GENERAL: The patient is lying in bed, in no acute distress. Alert and oriented x4. CARDIOVASCULAR: Regular rate and rhythm. RESPIRATORY: Diminished breath sounds auscultated in all lung gordon. ABDOMEN: Normoactive bowel sounds. Soft, nontender, nondistended. EXTREMITIES: No cyanosis, clubbing, or edema. LABORATORY DATA: CBC with a white blood cell count of 23.2, hemoglobin 9.1, hematocrit 29.3, platelets 367. Chemistry with a sodium of 136, potassium 3.2, chloride 97, CO2 of 30, BUN 16, creatinine 0.83, glucose 135. IMAGING DATA: The patient underwent upper endoscopy on January 10, 2020, which showed the presence of a small arteriovenous malformation within the second/third portion of the duodenum that was actively oozing blood. This was intervened upon with argon plasma coagulation with good hemostasis achieved. No other abnormalities were seen within the intestine, stomach, or esophagus. ASSESSMENT AND PLAN: The patient is a 79-year-old female with past medical history of chronic obstructive pulmonary disease, chronic kidney disease stage 2, coronary artery disease, congestive heart failure, atrial fibrillation, hyperlipidemia, hypertension, peripheral vascular disease, urinary urge incontinence, osteoarthritis, anxiety, and breast cancer, status post lumpectomy and radiation therapy, who initially presented with generalized fatigue and anemia with upper endoscopy showing a bleeding arteriovenous malformation. Anemia/arterial venous malformation of the duodenum. The patient initially presented with increased shortness of breath, fatigue, and generalized weakness that had been worsening over the last several months. This was also associated with the appearance of darker colored stools that were concerning for possible GI bleeding. On admission to the ER, she was noted to have a downtrending H and H when compared to her primary care initial testing. Also concerning for active bleeding. She subsequently underwent esophagogastroduodenoscopy on January 06, 2020, which showed the presence of a small actively oozing arteriovenous malformation within the duodenum that was intervened upon with argon plasma coagulation with good hemostasis achieved. Since the procedure, the patient has been having an uptrending H and H and has not had any further episodes of darker-colored stools nor has she had any stools since the procedure itself. RECOMMENDATIONS: 1. Would continue to trend her H and H and transfuse as necessary to maintain an H and H of 7 and 21. 2. Continue to monitor clinically for signs of active GI bleeding. 3. We will continue the patient on either PPI 40 mg twice daily until seen in the GI clinic in 2 to 3 weeks. 4. Could restart her anticoagulation in 48 to 72 hours. 5. Advance diet as tolerated. 6. Avoid any NSAIDs. Given her good clinical improvement, uptrending H and H, and no further clinical evidence of GI bleeding, we will sign off at this time. The patient can be discharged to home with followup in the GI clinic in the next 2 to 3 weeks. Please call with any additional questions. Job ID: [id number]
--- NOTE | 2020-01-11 13:25 | PDOC.HOSPP ---
- Subjective Encounter Date: 01/11/20 Encounter Time: 10:45 Subjective: no sob, feels better is amb with her walker to bathroom and back - Objective Vital Signs & Weight: Vital Signs (12 hours) Temp Pulse Resp BP BP Pulse Ox 01/11/20 12:14 97.4 F L 94 20 149/68 H 92 L 01/11/20 09:20 87 104/61 01/11/20 07:24 95 01/11/20 07:23 98 F 87 14 104/61 95 01/11/20 03:28 98.6 F 97 20 106/56 L 93 L Weight Weight 234 lb 12.8 oz I&O: 01/10/20 01/11/20 01/12/20 06:59 06:59 06:59 Intake Total 720 600 120 Output Total 3500 2350 Balance -2780 -1750 120 Result Diagrams: 01/11/20 04:13 01/11/20 04:13 Hospitalist ROS - Medication Medications: Active Medications Generic Name Dose Route Start Last Admin Trade Name Terese PRN Reason Stop Dose Admin Albuterol/Ipratropium 3 ml 01/09/20 19:00 01/11/20 07:04 Duoneb NEB Not Given [id number] RAJI Aspirin 81 mg 01/09/20 09:00 01/11/20 09:17 Aspirin Chewable PO 81 mg DAILY RAJI Administration Cholecalciferol 1,000 mcg 01/09/20 09:00 01/11/20 09:17 Vitamin D3 PO 1,000 units DAILY RAJI Administration Diltiazem HCl 120 mg 01/09/20 09:00 01/11/20 09:20 Cardizem Cd PO 120 mg DAILY RAJI Administration Escitalopram Oxalate 20 mg 01/09/20 09:00 01/11/20 09:17 Lexapro PO 20 mg DAILY RAJI Administration Flecainide Acetate 50 mg 01/08/20 21:00 01/11/20 09:17 Tambocor PO 50 mg BID RAJI Administration Furosemide 40 mg 01/10/20 09:00 01/11/20 09:18 Lasix PO 40 mg 0900,1400 RAJI Administration Lisinopril 2.5 mg 01/11/20 09:00 01/11/20 09:20 Zestril PO 2.5 mg DAILY RAJI Administration Pantoprazole Sodium 40 mg 01/09/20 09:00 01/11/20 09:18 Protonix IVP 40 mg Q12HR RAJI Administration Quetiapine Fumarate 12.5 mg 01/08/20 21:00 01/10/20 21:47 Seroquel PO 12.5 mg HS RAJI Administration Sodium Chloride 10 ml 01/08/20 22:11 01/10/20 21:45 Normal Saline Pf FS 10 ml PRN PRN Administration RECONSTITUTION - Exam General Appearance: awake alert Eye: PERRL, anicteric sclera ENT: no oropharyngeal lesions, moist mucosa Neck: supple, no JVD Heart: RRR, no murmur Respiratory: no wheezes, no rales Gastrointestinal: soft, non-tender, non-distended, normal bowel sounds Extremities: no cyanosis, no edema Neurological: cranial nerve grossly intact, no focal deficits Psychiatric: normal affect, A&O x 3 Hosp A/P (1) COPD (chronic obstructive pulmonary disease) Status: Acute Qualifiers: COPD type: COPD with acute exacerbation Qualified Code(s): J44.1 - Chronic obstructive pulmonary disease with (acute) exacerbation (2) Acute exacerbation of congestive heart failure Code(s): I50.9 - HEART FAILURE, UNSPECIFIED Status: Acute Qualifiers: Heart failure type: diastolic Qualified Code(s): I50.33 - Acute on chronic diastolic (congestive) heart failure (3) H/O: CVA (cerebrovascular accident) Code(s): Z86.73 - PRSNL HX OF TIA (TIA), AND CEREB INFRC W/O RESID DEFICITS Status: Chronic (4) CAD (coronary artery disease) Code(s): I25.10 - ATHSCL HEART DISEASE OF [place] CORONARY ARTERY W/O ANG PCTRS Status: Chronic Qualifiers: Coronary Disease-Associated Artery/Lesion type: [place] artery [place] vs. transplanted heart: [place] heart Associated angina: without angina Qualified Code(s): I25.10 - Atherosclerotic heart disease of [place] coronary artery without angina pectoris (5) HTN (hypertension) Code(s): I10 - ESSENTIAL (PRIMARY) HYPERTENSION Status: Chronic Qualifiers: Hypertension type: essential hypertension Qualified Code(s): I10 - Essential (primary) hypertension (6) Iron deficiency anemia due to chronic blood loss Code(s): D50.0 - IRON DEFICIENCY ANEMIA SECONDARY TO BLOOD LOSS (CHRONIC) Status: Chronic (7) PVD (peripheral vascular disease) Code(s): I73.9 - PERIPHERAL VASCULAR DISEASE, UNSPECIFIED Status: Chronic (8) Paroxysmal A-fib Code(s): I48.0 - PAROXYSMAL ATRIAL FIBRILLATION Status: Chronic - Plan is on lasix po, nebs, steroids had egd on 01/10/2020 with cauterisation of AVM in 2nd portion duodenum. currently in sinus rhythm to amb as tolerated taper and dc O2 for spo2 of 90% dc plan in am with HH and nursing with PT (she does not want rehab or placement) prior ef 55% in 09/2018 has prior h/o vascular ectasia and bleed from duodenum 10/2017 continue alicia GUTIERREZ, tambocor, lexapro, seroquel. hemostable anticoagulation per GI to start on 01/13/2020, to f/u with GI in 2-3 weeks she wants to go home in am, has to arrange a few things at home today and also for someone to come pick her up tomorrow nasal O2 if needed for home?, need amb spo2
[2020-01-12 04:37] LABS: #Basophils 0.1 thou/uL (0.0-0.2); #Lymphocytes 2.4 thou/uL (1.20-3.40); #Monocytes 1.4 thou/uL (0.11-0.59); #Neutrophils 5.5 thou/uL (1.40-6.50); %Basophils 0.7 % (0.0-1.0); %Eosinophils 0.3 % (0.0-10.0); %Lymphocytes 25.8 % (21.0-51.0); %Monocytes 14.8 % (0.0-10.0); %Neutrophils 58.5 % (42.0-75.0); Hemoglobin 9.1 g/dL (12.0-16.0); Mean Corpuscular HGB CONC 31.1 g/dL (32.0-36.0); Mean Corpuscular Hemoglobin 25.6 pg (27.0-31.0); Mean Corpuscular Volume 82.2 fL (78.0-98.0); Platelet Count 338 thou/uL (130-400); Red Blood Cell (RBC) Count 3.57 mill/uL (4.20-5.40); White Blood Cell (WBC) Count 9.4 thou/uL (4.8-10.8)
[2020-01-12 04:56] LABS: Albumin 3.5 g/dL (3.4-4.8); Anion Gap 14 mmol/L (10-20); BUN (Urea Nitrogen) 26 mg/dL (9.8-20.1); Bilirubin, Total 0.4 mg/dL (0.2-1.2); Calc. Creatinine Clearance 84 mL/min (70-130); Calcium 8.6 mg/dL (7.8-10.44); Carbon Dioxide 29 mmol/L (23-31); Chloride 97 mmol/L (98-107); Estimated GFR-MDRD 58; Globulin 3.3 g/dL (2.4-3.5); Glucose 102 mg/dL (83-110); Protein, Total 6.8 g/dL (6.0-8.3); Sodium 137 mmol/L (136-145)
[2020-01-12 04:57] LABS: ALT (SGPT) 11 U/L (8-55); AST (SGOT) 16 U/L (5-34); Alkaline Phosphatase 51 U/L (40-110)
[2020-01-12 05:00] LABS: Potassium 2.9 mmol/L (3.5-5.1)
[2020-01-12] MEDS: Potassium Chloride 20 MEQ TAB PO SCH ×2 (06:33→13:00)
--- NOTE | 2020-01-12 08:56 | PDOC.HOSPP ---
- Subjective Encounter Date: 01/12/20 Encounter Time: 10:00 Subjective: Patient felt a little light headed this AM. Able to get up and ambulate to the bathroom without difficulty. No edema. Mild cough starting this AM without fever /chest pain/SOB. Ready to go home. - Objective Vital Signs & Weight: Vital Signs (12 hours) Temp Pulse Resp BP Pulse Ox 01/12/20 07:31 97.8 F 86 14 147/64 H 92 L 01/12/20 03:16 98.3 F 84 20 105/50 L 93 L Weight Weight 233 lb 4.8 oz I&O: 01/11/20 01/12/20 01/13/20 06:59 06:59 06:59 Intake Total 600 600 Output Total 2350 2240 Balance -1750 -1640 Result Diagrams: 01/12/20 04:25 01/12/20 04:25 Additional Labs: Accuchecks 01/12/20 01/11/20 06:00 21:07 POC Glucose 103 126 H Hospitalist ROS - Review of Systems Constitutional: denies: fever, chills Respiratory: reports: cough, dry. denies: shortness of breath, SOB with excertion Cardiovascular: denies: chest pain, palpitations, edema Gastrointestinal: denies: nausea, vomiting, abdominal pain - Medication Medications: Active Medications Generic Name Dose Route Start Last Admin Trade Name Freq PRN Reason Stop Dose Admin Albuterol/Ipratropium 3 ml 01/09/20 19:00 01/12/20 06:52 Duoneb NEB Not Given [id number] RAJI Aspirin 81 mg 01/09/20 09:00 01/11/20 09:17 Aspirin Chewable PO 81 mg DAILY RAJI Administration Cholecalciferol 1,000 mcg 01/09/20 09:00 01/11/20 09:17 Vitamin D3 PO 1,000 units DAILY RAJI Administration Diltiazem HCl 120 mg 01/09/20 09:00 01/11/20 09:20 Cardizem Cd PO 120 mg DAILY RAJI Administration Escitalopram Oxalate 20 mg 01/09/20 09:00 01/11/20 09:17 Lexapro PO 20 mg DAILY RAJI Administration Flecainide Acetate 50 mg 01/08/20 21:00 01/11/20 22:01 Tambocor PO 50 mg BID RAJI Administration Furosemide 40 mg 01/10/20 09:00 01/11/20 14:52 Lasix PO 40 mg 0900,1400 RAJI Administration Lisinopril 2.5 mg 01/11/20 09:00 01/11/20 09:20 Zestril PO 2.5 mg DAILY RAJI Administration Pantoprazole Sodium 40 mg 01/09/20 09:00 01/11/20 22:01 Protonix IVP 40 mg Q12HR RAJI Administration Potassium Chloride 40 meq 01/12/20 05:30 01/12/20 06:33 K-Dur PO 01/12/20 14:30 40 meq 0530,1230 RAJI Administration Quetiapine Fumarate 12.5 mg 01/08/20 21:00 01/11/20 22:01 Seroquel PO 12.5 mg HS RAJI Administration Sodium Chloride 10 ml 01/08/20 22:11 01/10/20 21:45 Normal Saline Pf FS 10 ml PRN PRN Administration RECONSTITUTION - Exam General Appearance: NAD, awake alert ENT: moist mucosa Heart: RRR, no murmur, no gallops, no rubs Respiratory: CTAB, no wheezes, no rales, no ronchi Gastrointestinal: soft, non-tender, non-distended, normal bowel sounds Extremities: no edema Psychiatric: normal affect, normal behavior, A&O x 3 Hosp A/P (1) Acute blood loss anemia Code(s): D62 - ACUTE POSTHEMORRHAGIC ANEMIA Status: Acute (2) UGIB (upper gastrointestinal bleed) Code(s): K92.2 - GASTROINTESTINAL HEMORRHAGE, UNSPECIFIED Status: Resolved (3) Acute exacerbation of congestive heart failure Code(s): I50.9 - HEART FAILURE, UNSPECIFIED Status: Acute Qualifiers: Heart failure type: diastolic Qualified Code(s): I50.33 - Acute on chronic diastolic (congestive) heart failure (4) COPD (chronic obstructive pulmonary disease) Status: Acute Qualifiers: COPD type: COPD with acute exacerbation Qualified Code(s): J44.1 - Chronic obstructive pulmonary disease with (acute) exacerbation (5) H/O: CVA (cerebrovascular accident) Code(s): Z86.73 - PRSNL HX OF TIA (TIA), AND CEREB INFRC W/O RESID DEFICITS Status: Chronic (6) CAD (coronary artery disease) Code(s): I25.10 - ATHSCL HEART DISEASE OF [place] CORONARY ARTERY W/O ANG PCTRS Status: Chronic Qualifiers: Coronary Disease-Associated Artery/Lesion type: [place] artery [place] vs. transplanted heart: minto heart Associated angina: without angina Qualified Code(s): I25.10 - Atherosclerotic heart disease of [place] coronary artery without angina pectoris (7) HTN (hypertension) Code(s): I10 - ESSENTIAL (PRIMARY) HYPERTENSION Status: Chronic Qualifiers: Hypertension type: essential hypertension Qualified Code(s): I10 - Essential (primary) hypertension (8) PVD (peripheral vascular disease) Code(s): I73.9 - PERIPHERAL VASCULAR DISEASE, UNSPECIFIED Status: Chronic (9) Paroxysmal A-fib Code(s): I48.0 - PAROXYSMAL ATRIAL FIBRILLATION Status: Chronic (10) Hypokalemia Code(s): E87.6 - HYPOKALEMIA Status: Acute - Plan is on lasix po, nebs, steroids, will change back to HCTZ, oral meds. Drop in potassium, replacing orally had egd on 01/10/2020 with cauterisation of AVM in 2nd portion duodenum. currently in sinus rhythm to amb as tolerated dc'd O2 with O2 sats low 90s on RA dc plan this am with HH and nursing with PT (she does not want rehab or placement) prior ef 55% in 09/2018 has prior h/o vascular ectasia and bleed from duodenum 10/2017 continue cardizem CD, tambocor, lexapro, seroquel. hemostable anticoagulation per GI to start on 01/13/2020, to f/u with GI in 2-3 weeks she wants to go home this am
[2020-01-12] MEDS ORDERED: Non-Formulary Item 1 EACH (Cholecalciferol (Vitamin D3) [Vitamin D3] 1,000 UNIT) PO SCH (09:00)
[2020-01-12] MEDS ORDERED: Flecainide 50 MG TAB PO SCH (09:00)
[2020-01-12] MEDS ORDERED: DILTIAZEM HCL 120 MG PO SCH (09:00)
[2020-01-12] MEDS ORDERED: Cholecalciferol 1,000 UNITS (25 MCG) TAB PO SCH ×2 (09:15→21:00)
[2020-01-12] MEDS: Aspirin Chewable 81 MG TAB PO SCH (09:19)
[2020-01-12] MEDS: Escitalopram Oxalate 20 mg Tablet PO SCH (09:19)
[2020-01-12] MEDS: Lisinopril 2.5 MG TAB PO SCH (09:20)
[2020-01-12] MEDS: Pantoprazole 40 MG VIAL IVP SCH (09:20)
[2020-01-12] MEDS: Furosemide 40 MG TAB PO SCH ×2 (09:20→13:00)
[2020-01-12] MEDS: Cholecalciferol 1,000 UNITS (25 MCG) TAB PO SCH (09:32)
[2020-01-12] MEDS: Flecainide 50 MG TAB PO SCH (09:32)
[2020-01-12 15:56] VITALS: BP 106/57; TEMP 98.3
[2020-01-12] MEDS ORDERED: Donepezil HCl 5 MG TAB PO SCH (21:00)
--- NOTE | 2020-01-13 06:28 | DIS ---
DATE OF ADMISSION: 01/08/2020 DATE OF DISCHARGE: 01/12/2020 PRIMARY CARE PHYSICIAN: Millicent Olson MD REASON FOR ADMISSION: Suspected congestive heart failure with significant anemia. DIAGNOSES AT DISCHARGE: 1. Acute blood loss anemia secondary to upper gastrointestinal bleed, resolved. 2. Acute on chronic diastolic congestive heart failure, resolved. 3. Chronic obstructive pulmonary disease. 4. Coronary artery disease. 5. Hypertension. 6. Peripheral vascular disease. 7. Paroxysmal atrial fibrillation. 8. Hypokalemia. 9. History of cerebrovascular accident. PROCEDURES: 1. Echocardiogram showing an ejection fraction of 60% to 65% with diastolic dysfunction. 2. 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 CONSULTATIONS: Gastroenterology, Dr. Asif. SUMMARY OF HOSPITAL COURSE: This is a 79-year-old white female, who came in with fatigue, lightheadedness, shortness of breath. She was found to have an elevated BNP of 300. She was found to have lower extremity edema. She was found to have an acute on chronic anemia with hemoglobin drop down to 7.7 from 10 a couple of months ago and from 13 last year. The patient had diuresis in the hospital, had a positive Hemoccult stool. She was transfused and her symptoms resolved with a hemoglobin of 9.1, stable at the time of discharge. Dr. Asif was consulted, did an EGD with above results. Her aspirin was held during her hospitalization and is being restarted tomorrow. She is stable and been cleared for discharge. DISCHARGE MANAGEMENT: Discharged home with home health for physical therapy and nursing. ACTIVITY: As tolerated. DIET: Healthy-heart diet. MEDICATIONS: 1. Protonix 40 mg twice a day, 40 tabs dispensed, to be taken until seen in GI clinic followup. 2. Potassium chloride 10 mEq daily, 10 capsules dispensed. 3. Vitamin D3 1000 units twice a day. 4. Diltiazem 12-hour extended release 120 mg twice a day. 5. Aricept 5 mg at night. 6. Lexapro 20 mg daily. 7. Flecainide 50 mg twice a day. 8. Seroquel 25 mg at night. 9. Zolpidem 5 mg at night. 10. Aspirin 81 mg daily, starting tomorrow. 11. Hydrochlorothiazide 75 mg twice a day. 12. Lisinopril 20 mg daily. FOLLOWUP: The patient is to follow up with Dr. Asif in 2 to [address] Millicent Olson in 2 days at 10:15 am on 01/14/2020. TIME SPENT: Arranging the details of this discharge took 32 minutes. Job ID: [id number]
== END 2020-01-12 17:08 | disposition home health service (06) | DRG 377 ==
LOC: ERS 15:58 → 2NO 19:12
PROVIDERS: ADMIT Family Medicine; ATTEND Family Medicine
PROC: 0W3P8ZZ Control Bleeding in Gastrointestinal Tract, Via Natural or Artificial Opening Endoscopic (ICD-10-PCS; principal; 2020-01-10)
DX: K31.811 Angiodysplasia of stomach and duodenum with bleeding (principal); I50.33 Acute on chronic diastolic (congestive) heart failure; I13.0 Hypertensive heart and chronic kidney disease with heart failure and stage 1 through stage 4 chronic kidney disease, or unspecified chronic kidney disease; J44.1 Chronic obstructive pulmonary disease with (acute) exacerbation; D62 Acute posthemorrhagic anemia; Z11.59 Encounter for screening for other viral diseases; E78.5 Hyperlipidemia, unspecified; E78.00 Pure hypercholesterolemia, unspecified; M19.90 Unspecified osteoarthritis, unspecified site; N18.2 Chronic kidney disease, stage 2 (mild); F32.9 Major depressive disorder, single episode, unspecified; F41.9 Anxiety disorder, unspecified; N39.41 Urge incontinence; I73.9 Peripheral vascular disease, unspecified; K21.9 Gastro-esophageal reflux disease without esophagitis; I48.0 Paroxysmal atrial fibrillation; E87.6 Hypokalemia; Z85.3 Personal history of malignant neoplasm of breast; Z86.73 Personal history of transient ischemic attack (TIA), and cerebral infarction without residual deficits; Z87.891 Personal history of nicotine dependence; Z92.3 Personal history of irradiation; Z79.899 Other long term (current) drug therapy; Z79.82 Long term (current) use of aspirin
CPT/HCPCS: 36415; 36416; 71045; 80053; 82274; 82728; 83540; 83550; 83880; 84484; 85025; 85046; 85060; 85610; 85730; 86850; 86900; 86901; 87635; 93005; 93306; 94640; 96374; 96375; 97139; C9113; J1940; J2704; J2920; J7620; U0003

== ENCOUNTER 2020-02-02 11:42 | Emergency (ER) | payer MEDICARE ==
[2020-02-02 14:17] LABS: Bacteria/HPF None Seen HPF (None Seen); Bilirubin Negative (Negative); Blood, Urine Negative (Negative); Clarity Clear (Clear); Glucose, Urine (Dipstick) Normal (Negative); Ketone, Urine Negative (Negative); Leukocyte 25 Leu/uL (Negative); Nitrite Negative (Negative); Protein, Urine (Dipstick) Negative (Neg-Trace); RBC/HPF 0-3 HPF (0-3); Squamous Epithelial 0-3 HPF (0-3); Urobilinogen Normal mg/dL (Less than 2); WBC/HPF 0-3 HPF (0-3); pH, Urine 6.5 (5.0-9.0)
[2020-02-02 14:47] LABS: #Eosinphils 0.3 thou/uL (0.0-0.7); #Lymphocytes 1.8 thou/uL (1.20-3.40); #Monocytes 0.7 thou/uL (0.11-0.59); #Neutrophils 3.5 thou/uL (1.40-6.50); %Basophils 0.1 % (0.0-1.0); %Eosinophils 5.5 % (0.0-10.0); %Lymphocytes 27.9 % (21.0-51.0); %Neutrophils 55.4 % (42.0-75.0); Hemoglobin 8.5 g/dL (12.0-16.0); Mean Corpuscular HGB CONC 29.7 g/dL (32.0-36.0); Mean Corpuscular Hemoglobin 23.2 pg (27.0-31.0); Mean Corpuscular Volume 78.1 fL (78.0-98.0); Mean Platelet Volume 8.8 fL (7.4-10.4); Platelet Count 314 thou/uL (130-400); Red Blood Cell (RBC) Count 3.65 mill/uL (4.20-5.40); White Blood Cell (WBC) Count 6.3 thou/uL (4.8-10.8)
[2020-02-02 15:09] LABS: ALT (SGPT) 9 U/L (8-55); AST (SGOT) 19 U/L (5-34); Albumin 3.6 g/dL (3.4-4.8); Alkaline Phosphatase 62 U/L (40-110); Anion Gap 13 mmol/L (10-20); BUN (Urea Nitrogen) 10 mg/dL (9.8-20.1); Bilirubin, Total 0.2 mg/dL (0.2-1.2); Calc. Creatinine Clearance 0 mL/min (70-130); Carbon Dioxide 28 mmol/L (23-31); Chloride 102 mmol/L (98-107); Estimated GFR-MDRD 58; Globulin 3.9 g/dL (2.4-3.5); Glucose 90 mg/dL (83-110); Potassium 4.4 mmol/L (3.5-5.1); Protein, Total 7.5 g/dL (6.0-8.3); Sodium 139 mmol/L (136-145)
[2020-02-02] MEDS ORDERED: Pantoprazole 80 MG, Admixture Fee 1 EACH in Sodium Chloride 0.9% 100 ML IVPB SCH (15:45)
== END 2020-02-02 17:33 | disposition home or self-care (01) ==
LOC: ERS 11:42
DX: D64.9 Anemia, unspecified (principal); I11.0 Hypertensive heart disease with heart failure; I50.9 Heart failure, unspecified; M19.90 Unspecified osteoarthritis, unspecified site; E78.5 Hyperlipidemia, unspecified; E78.00 Pure hypercholesterolemia, unspecified; F41.9 Anxiety disorder, unspecified; I48.91 Unspecified atrial fibrillation; Z87.891 Personal history of nicotine dependence; Z79.899 Other long term (current) drug therapy; Z79.82 Long term (current) use of aspirin; Z79.891 Long term (current) use of opiate analgesic
CPT/HCPCS: 36415; 80053; 81003; 81015; 82274; 83880; 84484; 85025; 86850; 86900; 86901; 93005; 96365; C9113; J3490

== ENCOUNTER 2020-04-05 08:02 | Outpatient (CLI) | payer MEDICARE, OTHER ==
[2020-04-06 16:20] LABS: SARS-CoV-2 MS2 Positive; SARS-CoV-2 N Gene Negative; SARS-CoV-2 S Gene Negative; SARS-CoV-2 by NAA Not Detected (NotDetected); SARS-CoV-2 orf1ab Negative
== END 2020-04-05 08:03 | disposition home or self-care (01) ==
LOC: LABBT 08:02
PROVIDERS: ATTEND Specialist
DX: M51.16 Intervertebral disc disorders with radiculopathy, lumbar region (principal); M96.1 Postlaminectomy syndrome, not elsewhere classified; G89.4 Chronic pain syndrome; Z20.828 Contact with and (suspected) exposure to other viral communicable diseases
CPT/HCPCS: 87635; U0003

== ENCOUNTER 2020-04-26 07:50 | Outpatient (CLI) | payer MEDICARE, OTHER ==
[2020-04-27 11:06] LABS: SARS-CoV-2 MS2 Positive; SARS-CoV-2 N Gene Negative; SARS-CoV-2 S Gene Negative; SARS-CoV-2 by NAA Not Detected (NotDetected); SARS-CoV-2 orf1ab Negative
== END 2020-04-26 07:51 | disposition home or self-care (01) ==
LOC: LABBT 07:50
PROVIDERS: ATTEND Specialist
DX: M96.1 Postlaminectomy syndrome, not elsewhere classified (principal); G89.29 Other chronic pain; M51.16 Intervertebral disc disorders with radiculopathy, lumbar region; Z20.828 Contact with and (suspected) exposure to other viral communicable diseases
CPT/HCPCS: 87635; U0003

== ENCOUNTER 2020-04-29 07:33 | Day surgery (SDC) | payer MEDICARE ==
[2020-04-28 10:25] VITALS: BMI 37.1
[2020-04-29] MEDS ORDERED: CEFAZOLIN 1 GM VIAL ONE (08:53)
[2020-04-29] MEDS ORDERED: Sodium Chloride 0.9% 100 ML ONE (08:53)
[2020-04-29] MEDS ORDERED: Bupivacaine PF 0.5% 30 ML VIAL ONE (09:36)
[2020-04-29] MEDS ORDERED: EPINEPHrine 1 MG/ML AMP ONE (09:36)
[2020-04-29 09:38] LABS: Anion Gap 13 mmol/L (10-20); BUN (Urea Nitrogen) 12 mg/dL (9.8-20.1); Calc. Creatinine Clearance 80 mL/min (70-130); Calcium 9.4 mg/dL (7.8-10.44); Carbon Dioxide 27 mmol/L (23-31); Chloride 106 mmol/L (98-107); Estimated GFR-MDRD 57; Glucose 111 mg/dL (83-110); Potassium 4.6 mmol/L (3.5-5.1); Sodium 141 mmol/L (136-145)
[2020-04-29] MEDS ORDERED: Propofol 1,000 MG/100 ML VIAL IV ONE (09:49)
[2020-04-29] MEDS ORDERED: Midazolam HCl 2 mg/2 ml Vial ONE (09:49)
[2020-04-29] MEDS ORDERED: Fentanyl 100 MCG/2 ML VIAL ONE (09:49)
[2020-04-29] MEDS ORDERED: Lidocaine 1% (PF) 30 ML VIAL ONE (10:40)
[2020-04-29] MEDS ORDERED: HYDROcodone/Acetaminophen 5/325 mg Tablet ONE (13:12)
--- NOTE | 2020-04-29 16:56 | RAD ---
XR Thoracic Spine 1 View History: Spinal cord stimulator Comparison: Chest radiograph January 08, 2020 Findings: Dorsal column stimulator is in place with leads projecting over the mid T7 and lower T8 naomi tebral bodies. Impression: Fluoroscopy for procedure purposes.
--- NOTE | 2020-04-29 17:28 | OP ---
DATE OF PROCEDURE: 04/29/2020 PREOPERATIVE DIAGNOSES: 1. Post-laminectomy syndrome. 2. Chronic pain syndrome. 3. Lumbar radiculopathy. POSTOPERATIVE DIAGNOSES: 1. Post-laminectomy syndrome. 2. Chronic pain syndrome. 3. Lumbar radiculopathy. PROCEDURES PERFORMED: 1. Spinal cord stimulator generator implant. 2. Spinal cord stimulator lead implant x2. ESTIMATED BLOOD LOSS: 5. DESCRIPTION OF PROCEDURE: The patient was taken to the procedure room, placed prone on the procedure room table. A time-out was performed. The back was prepped with DuraPrep. Sterile drapes were applied. Using fluoroscopy, we located the interspace of T12-L1. We anesthetized the skin and made a vertical incision down to fascia. We inserted a 14-gauge Tuohy needle in a paramedian technique toward T12-L1 on the right and engaged in the ligament. We used loss of resistance to air to achieve access to the epidural space. The aspiration was negative for heme or CSF. The lead was then threaded through the midline dorsal epidural space under continuous fluoro with the right-sided lead ending up at the bottom of T7. We then performed the exact same technique on the left side with the paramedian technique going to T11-T12 as T12-L1 was difficult to access. The lead was also threaded down the midline of dorsal epidural space to the bottom of T8. The patient was woken up and stimulation was performed and she noted paresthesia in all pain areas. We then took the needles and the stylettes out, taking care not to move the needles. We placed anchors over the leads and then sutured these down with 2-0 silk suture x2 for each anchor to the fascia. We tugged under continuous fluoro and the leads were not moving. We then anesthetized the pocket area in the right upper buttock. We made an incision and blunt dissected down the Elvis's fascia. We then blunt dissected inferiorly and superiorly to create a pocket. We used a tunneling device to create a tunnel between the two pockets. The leads were placed through this tunnel and brought to the battery pocket. They were connected to the battery and torqued down to affix them to the battery. Impedances were checked, which were all good. We inserted the battery into the pocket. The fascial layer was approximated with 2-0 Vicryl suture in horizontal mattress and simple interrupted fashion in two layers for each incision. We then approximated the skin layer with a 3-0 Rapide using a subcuticular stitch. Dermabond was placed over this and allowed to dry. Then, sterile 4x4s and Medipore tape were placed over this. The patient was taken to the Day Stay under stable condition. Job ID: [id number]
== END 2020-04-29 13:33 | disposition home or self-care (01) ==
LOC: SDC 07:33
PROVIDERS: ATTEND Specialist
PROC: 0JH70DZ Insertion of Multiple Array Stimulator Generator into Back Subcutaneous Tissue and Fascia, Open Approach (ICD-10-PCS; principal; 2020-04-29)
PROC: 00HU3MZ Insertion of Neurostimulator Lead into Spinal Canal, Percutaneous Approach (ICD-10-PCS; 2020-04-29)
DX: M96.1 Postlaminectomy syndrome, not elsewhere classified (principal); G89.4 Chronic pain syndrome; M51.16 Intervertebral disc disorders with radiculopathy, lumbar region
CPT/HCPCS: 63650 ×2; 63685; 72020; 76000; 80048; 93005; C1778; C1787; L8679; L8689; 93010; J0171; J0690; J2001; J2250; J2704; J3010; J3370; J3490; S0020